=== PATIENT | male | born 1960 | race Caucasian/White ===

== ENCOUNTER 2016-05-07 17:30 | Inpatient (IN) | payer MEDICARE ==
--- NOTE | 2016-05-07 17:42 | ED ---
General Adult HPI - General Stated complaint: chest pain Time Seen by Provider: 05/07/16 17:30 Source: RN notes reviewed - History of Present Illness Initial comments: A 56-year-old male who has a past medical history significant for congestive heart failure C. difficile there he's in the halfway recovering. Patient uses BiPAP at night or when he sleeping. EMS was called the scene because the patient was unresponsive the head and sitting up on BiPAP according to EMS he was not responding to any painful stimuli they laid him down gave him 3 rescue breaths and he became awake and alert. Patient is a little bit confused he thinks it's May when in fact it is April but aside from that he answers all questions accurately. Patient states currently he is having no pain or no difficulty breathing. Patient denies any fever or chills patient denies any abdominal pain patient denies any nausea vomiting diarrhea. Patient states he has no problems at all right now and he is kind of wondering why he is here. Patient states she thinks she was just sleeping when they were trying to arouse him. - Related Data Home Medications Medication Instructions Recorded Confirmed Acetaminophen Tab [Tylenol Tab] 650 mg PO Q6H PRN 05/07/16 05/07/16 Allopurinol [Zyloprim] 300 mg PO DAILY@0900 05/07/16 05/07/16 Amiodarone HCl 400 mg PO BID@0900,209905/07/16 05/07/16 Benzonatate [Tessalon Perles] 100 mg PO Q8H PRN 05/07/16 05/07/16 Budesonide [Pulmicort] 0.5 mg INHALATION RT-BID@09,209905/07/16 05/07/16 Carvedilol [Coreg] 6.25 mg PO BID@0900,209905/07/16 05/07/16 Cyclobenzaprine [Flexeril] 5 mg PO Q8H PRN 05/07/16 05/07/16 Docusate [Colace] 100 mg PO BID PRN 05/07/16 05/07/16 Famotidine 20 mg PO DAILY@0600 05/07/16 05/07/16 Fluticasone Nasal [place] [Flonase 2 spray EA NOSTRIL DAILY@0900 05/07/16 05/07/16 Nasal [place]] Furosemide [Lasix] 40 mg PO BID@0600,1400 05/07/16 05/07/16 Gabapentin [Neurontin] 100 mg PO TID@0600,1400,2200 05/07/16 05/07/16 HYDROcodone/APAP 10-325MG [[place] 1 tab PO Q6H PRN 05/07/16 05/07/16 10-325] Insulin Glargine,Hum.rec.anlog 30 unit SQ HS@209905/07/16 05/07/16 [Basaglar Kwikpen U-100] Insulin Lispro [humaLOG Kwikpen] See Protocol SQ AC-TID 05/07/16 05/07/16 Ipratropium-Albuterol Nebulize 3 ml INHALATION RT-Q6H PRN 05/07/16 05/07/16 [Duoneb 0.5 mg-3 mg/3 ml Soln] Lactulose 20 gm PO Q8H PRN 05/07/16 05/07/16 Tamsulosin HCl [Flomax] 0.4 mg PO HS@209905/07/16 05/07/16 Warfarin [Coumadin] 5 mg PO DAILY@1700 05/07/16 05/07/16 guaiFENesin SYRUP 100MG/5ML 100 mg PO Q6H PRN 05/07/16 05/07/16 [Robitussin] Allergies Allergy/AdvReac Type Severity Reaction Status Date / Time No Known Allergies Allergy Unverified 05/07/16 17:45 Review of Systems ROS Statement: Those systems with pertinent positive or pertinent negative responses have been documented in the HPI. ROS Other: All systems not noted in ROS Statement are negative. General Exam - General Exam Comments Initial Comments: GENERAL: Patient is well-developed and well-nourished. Patient is nontoxic and well- hydrated and is in no acute distress. ENT: Neck is soft and supple. No significant lymphadenopathy is noted. Oropharynx is clear. Moist mucous membranes. Neck has full range of motion without eliciting any pain. EYES: The sclera were anicteric and conjunctiva were pink and moist. Extraocular movements were intact and pupils were equal round and reactive to light. Eyelids were unremarkable. PULMONARY: Unlabored respirations. Good breath sounds bilaterally. No audible rales rhonchi or wheezing was noted. CARDIOVASCULAR: There is a regular rate and rhythm without any murmurs gallops or rubs. ABDOMEN: Soft and nontender with normal bowel sounds. Patient is morbidly obese SKIN: Skin is clear with no lesions or rashes and otherwise unremarkable. NEUROLOGIC: Patient is alert and oriented 2. Cranial nerves II through XII are grossly intact. Motor and sensory are also intact. Normal speech, volume and content. Symmetrical smile. MUSCULOSKELETAL: Normal extremities with adequate strength and full range of motion. No lower extremity swelling or edema. No calf tenderness. LYMPHATICS: No significant lymphadenopathy is noted PSYCHIATRIC: Normal psychiatric evaluation. Normal interpersonal interactions appears functionally intact in deals appropriately with others. No signs of depression. No signs of anxiety. Course Vital Signs 05/07/16 17:32 Temperature 98.4 F Pulse Rate 80 Respiratory 20 Rate O2 Sat by Pulse 100 Oximetry Medical Decision Making - Medical Decision Making EKG shows atrial fibrillation at 80 bpm QRS is 180 QT interval 472 QTC is 544. Patient's EKG shows interventricular conduction delay and there is some inverted T waves in V1 through V6. No ST segment elevations noted. Chest x-ray shows pulmonary edema because of this to give the patient Lasix. Patient has acute renal failure/consult nephrology. Patient has urinary tract infections I gave the patient 2 g of Rocephin. Patient has an elevated INRs I gave the patient 5 of vitamin K. Patient has a hemoglobin of 7.6 so repeated CBC is ordered a type and screen. I spoke with Dr. kovacs and she agreed to admit the patient I wrote admitting orders - Lab Data Result diagrams: 05/07/16 17:53 05/07/16 17:53 Lab Results 05/07/16 05/07/16 05/07/16 Range/Units 17:48 17:53 17:53 WBC 7.8 (3.8-10.6) k/uL RBC 2.91 L (4.30-5.90) m/uL Hgb 7.6 L (13.0-17.5) gm/dL Hct 25.1 L (39.0-53.0) % MCV 86.3 (80.0-100.0) fL MCH 25.9 (25.0-35.0) pg MCHC 30.1 L (31.0-37.0) g/dL RDW 24.0 H (11.5-15.5) % Plt Count 194 (150-450) k/uL Neutrophils % 83 % Lymphocytes % 7 % Monocytes % 6 % Eosinophils % 0 % Basophils % 0 % Neutrophils # 6.5 (1.3-7.7) k/uL Lymphocytes # 0.5 L (1.0-4.8) k/uL Monocytes # 0.5 (0-1.0) k/uL Eosinophils # 0.0 (0-0.7) k/uL Basophils # 0.0 (0-0.2) k/uL Hypochromasia Marked Poikilocytosis Slight Anisocytosis Marked Microcytosis Slight PT (9.0-12.0) sec INR (<1.1) APTT (22.0-30.0) sec Sample Site l rad ABG pH 7.35 (7.35-7.45) ABG pCO2 51 H (35-45) mmHg ABG pO2 301 H (83-108) mmHg ABG HCO3 27 H (21-25) mmol/L ABG Total CO2 29 H (19-24) mmol/L ABG O2 Saturation 100.0 H (94-97) % ABG Base Excess 2.3 mmol/L FiO2 100 % Sodium (137-145) mmol/L Potassium (3.5-5.1) mmol/L Chloride (98-107) mmol/L Carbon Dioxide (22-30) mmol/L Anion Gap mmol/L BUN (9-20) mg/dL Creatinine (0.66-1.25) mg/dL Est GFR (MDRD) Af Amer (>60 ml/min/1.73 sqM) Est GFR (MDRD) Non-Af (>60 ml/min/1.73 sqM) Glucose (74-99) mg/dL Calcium (8.4-10.2) mg/dL Magnesium (1.6-2.3) mg/dL Total Bilirubin (0.2-1.3) mg/dL AST (17-59) U/L ALT (21-72) U/L Alkaline Phosphatase (38-126) U/L Total Creatine Kinase 55 (55-170) U/L CK-MB (CK-2) 1.3 (0.0-2.4) ng/mL CK-MB (CK-2) Rel Index 2.4 Troponin I 0.112 H* (0.000-0.034) ng/mL NT-Pro-B Natriuret Pep pg/mL Total Protein (6.3-8.2) g/dL Albumin (3.5-5.0) g/dL Urine Color Urine Appearance (Clear) Urine pH (5.0-8.0) Ur Specific [place] (1.001-1.035) Urine Protein (Negative) Urine Glucose (UA) (Negative) Urine Ketones (Negative) Urine Blood (Negative) Urine Nitrite (Negative) Urine Bilirubin (Negative) Urine Urobilinogen (<2.0) mg/dL Ur Leukocyte Esterase (Negative) Urine RBC (0-5) /hpf Urine WBC (0-5) /hpf Urine WBC Clumps (None) /hpf Urine Bacteria (None) /hpf Urine Mucus (None) /hpf Urine Yeast (Budding) (None) /hpf 05/07/16 05/07/16 05/07/16 Range/Units 17:53 17:53 17:53 WBC (3.8-10.6) k/uL RBC (4.30-5.90) m/uL Hgb (13.0-17.5) gm/dL Hct (39.0-53.0) % MCV (80.0-100.0) fL MCH (25.0-35.0) pg MCHC (31.0-37.0) g/dL RDW (11.5-15.5) % Plt Count (150-450) k/uL Neutrophils % % Lymphocytes % % Monocytes % % Eosinophils % % Basophils % % Neutrophils # (1.3-7.7) k/uL Lymphocytes # (1.0-4.8) k/uL Monocytes # (0-1.0) k/uL Eosinophils # (0-0.7) k/uL Basophils # (0-0.2) k/uL Hypochromasia Poikilocytosis Anisocytosis Microcytosis PT 42.5 H (9.0-12.0) sec INR 4.3 (<1.1) APTT 30.0 (22.0-30.0) sec Sample Site ABG pH (7.35-7.45) ABG pCO2 (35-45) mmHg ABG pO2 (83-108) mmHg ABG HCO3 (21-25) mmol/L ABG Total CO2 (19-24) mmol/L ABG O2 Saturation (94-97) % ABG Base Excess mmol/L FiO2 % Sodium 133 L (137-145) mmol/L Potassium 4.2 (3.5-5.1) mmol/L Chloride 96 L (98-107) mmol/L Carbon Dioxide 31 H (22-30) mmol/L Anion Gap 6 mmol/L BUN 127 H* (9-20) mg/dL Creatinine 3.20 H (0.66-1.25) mg/dL Est GFR (MDRD) Af Amer 24 (>60 ml/min/1.73 sqM) Est GFR (MDRD) Non-Af 20 (>60 ml/min/1.73 sqM) Glucose 135 H (74-99) mg/dL Calcium 7.8 L (8.4-10.2) mg/dL Magnesium 2.1 (1.6-2.3) mg/dL Total Bilirubin 0.5 (0.2-1.3) mg/dL AST 20 (17-59) U/L ALT 30 (21-72) U/L Alkaline Phosphatase 238 H (38-126) U/L Total Creatine Kinase (55-170) U/L CK-MB (CK-2) (0.0-2.4) ng/mL CK-MB (CK-2) Rel Index Troponin I (0.000-0.034) ng/mL NT-Pro-B Natriuret Pep 86198 pg/mL Total Protein 4.1 L (6.3-8.2) g/dL Albumin 2.0 L (3.5-5.0) g/dL Urine Color Urine Appearance (Clear) Urine pH (5.0-8.0) Ur Specific [place] (1.001-1.035) Urine Protein (Negative) Urine Glucose (UA) (Negative) Urine Ketones (Negative) Urine Blood (Negative) Urine Nitrite (Negative) Urine Bilirubin (Negative) Urine Urobilinogen (<2.0) mg/dL Ur Leukocyte Esterase (Negative) Urine RBC (0-5) /hpf Urine WBC (0-5) /hpf Urine WBC Clumps (None) /hpf Urine Bacteria (None) /hpf Urine Mucus (None) /hpf Urine Yeast (Budding) (None) /hpf 05/07/16 Range/Units 18:50 WBC (3.8-10.6) k/uL RBC (4.30-5.90) m/uL Hgb (13.0-17.5) gm/dL Hct (39.0-53.0) % MCV (80.0-100.0) fL MCH (25.0-35.0) pg MCHC (31.0-37.0) g/dL RDW (11.5-15.5) % Plt Count (150-450) k/uL Neutrophils % % Lymphocytes % % Monocytes % % Eosinophils % % Basophils % % Neutrophils # (1.3-7.7) k/uL Lymphocytes # (1.0-4.8) k/uL Monocytes # (0-1.0) k/uL Eosinophils # (0-0.7) k/uL Basophils # (0-0.2) k/uL Hypochromasia Poikilocytosis Anisocytosis Microcytosis PT (9.0-12.0) sec INR (<1.1) APTT (22.0-30.0) sec Sample Site ABG pH (7.35-7.45) ABG pCO2 (35-45) mmHg ABG pO2 (83-108) mmHg ABG HCO3 (21-25) mmol/L ABG Total CO2 (19-24) mmol/L ABG O2 Saturation (94-97) % ABG Base Excess mmol/L FiO2 % Sodium (137-145) mmol/L Potassium (3.5-5.1) mmol/L Chloride (98-107) mmol/L Carbon Dioxide (22-30) mmol/L Anion Gap mmol/L BUN (9-20) mg/dL Creatinine (0.66-1.25) mg/dL Est GFR (MDRD) Af Amer (>60 ml/min/1.73 sqM) Est GFR (MDRD) Non-Af (>60 ml/min/1.73 sqM) Glucose (74-99) mg/dL Calcium (8.4-10.2) mg/dL Magnesium (1.6-2.3) mg/dL Total Bilirubin (0.2-1.3) mg/dL AST (17-59) U/L ALT (21-72) U/L Alkaline Phosphatase (38-126) U/L Total Creatine Kinase (55-170) U/L CK-MB (CK-2) (0.0-2.4) ng/mL CK-MB (CK-2) Rel Index Troponin I (0.000-0.034) ng/mL NT-Pro-B Natriuret Pep pg/mL Total Protein (6.3-8.2) g/dL Albumin (3.5-5.0) g/dL Urine Color Light Red Urine Appearance Turbid (Clear) Urine pH 5.5 (5.0-8.0) Ur Specific [place] 1.012 (1.001-1.035) Urine Protein 1+ H (Negative) Urine Glucose (UA) Negative (Negative) Urine Ketones Negative (Negative) Urine Blood Moderate H (Negative) Urine Nitrite Negative (Negative) Urine Bilirubin Negative (Negative) Urine Urobilinogen <2.0 (<2.0) mg/dL Ur Leukocyte Esterase Large H (Negative) Urine RBC 136 H (0-5) /hpf Urine WBC >182 H (0-5) /hpf Urine WBC Clumps Many H (None) /hpf Urine Bacteria Many H (None) /hpf Urine Mucus Rare H (None) /hpf Urine Yeast (Budding) Many H (None) /hpf Critical Care Time Critical Care Time: Yes Total Critical Care Time: 35 Disposition Clinical Impression: Acute pulmonary edema, Acute renal failure, Urinary tract infection, Coagulopathy, Anemia Disposition: ADMITTED IP TO THIS [facility] Time of Disposition: 19:20
[2016-05-07 18:09] LABS: Anisocytosis Marked; Basophils % (A) 0 %; CH 24.9; CHCM 28.7; Eosinophils % (A) 0 %; HCT 25.1 % (39.0-53.0); HDW 3.78; HGB 7.6 gm/dL (13.0-17.5); Hypochromasia Marked; Luc # (Auto) 0.22; Luc % (Auto) 3; Lymphocytes # (A) 0.5 k/uL (1.0-4.8); Lymphocytes % (A) 7 %; MCH 25.9 pg (25.0-35.0); MCHC 30.1 g/dL (31.0-37.0); MCV 86.3 fL (80.0-100.0); Mean Platelet Volume 8.5; Microcytosis Slight; Monocytes # (A) 0.5 k/uL (0-1.0); Monocytes % (A) 6 %; Neutrophils # (A) 6.5 k/uL (1.3-7.7); Neutrophils % (A) 83 %; Poikilocytosis Slight; RBC 2.91 m/uL (4.30-5.90); WBC 7.8 k/uL (3.8-10.6); WBC (Perox) 8.29
[2016-05-07 18:18] LABS: INR 4.3 (<1.1); Prothrombin Time 42.5 sec (9.0-12.0)
[2016-05-07 18:22] LABS: ABG Base Excess 2.3 mmol/L; ABG HCO3 27 mmol/L (21-25); ABG PCO2 51 mmHg (35-45); ABG PH 7.35 (7.35-7.45); ABG PO2 301 mmHg (83-108); ABG TCO2 29 mmol/L (19-24)
[2016-05-07 18:41] LABS: Calcium 7.8 mg/dL (8.4-10.2); Magnesium 2.1 mg/dL (1.6-2.3); Potassium 4.2 mmol/L (3.5-5.1); Total Bilirubin 0.5 mg/dL (0.2-1.3); Total Protein 4.1 g/dL (6.3-8.2)
--- NOTE | 2016-05-07 18:48 | XR ---
EXAMINATION TYPE: XR chest 2V DATE OF EXAM: 05/07/2016 6:37 PM COMPARISON: NONE HISTORY: Unresponsive. Chest pain TECHNIQUE: Frontal and lateral views of the chest are obtained. FINDINGS: Exam is limited by the patient's obesity. As best as one can tell there is pulmonary edema . There is left pleural effusion. There are chest leads. There is possible right pleural effusion. IMPRESSION: Limited exam. There is probably pulmonary edema due to congestive heart failure. Left pl eural effusion. Left lower lobe pneumonia cannot be excluded.
[2016-05-07 18:50] LABS: Creatine Kinase MB 1.3 ng/mL (0.0-2.4)
[2016-05-07 18:53] LABS: Troponin I 0.112 ng/mL (0.000-0.034)
[2016-05-07 19:01] LABS: Appearance,Urine Turbid (Clear); Bacteria,Urine Many /hpf; Bilirubin,Urine Negative (Negative); Glucose,Urine (UA) Negative (Negative); Ketones,Urine Negative (Negative); Leukocyte Esterase,Urine Large (Negative); Mucus,Urine Rare /hpf; Nitrite,Urine Negative (Negative); PH, Urine 5.5 (5.0-8.0); Particle Count 17370; Protein,Urine 1+ (Negative); RBC,Urine 136 /hpf (0-5); Specific Gravity,Urine 1.012 (1.001-1.035); UA Billing (MACRO vs. MICRO) MICRO; Urobilinogen,Urine <2.0 mg/dL (<2.0); WBC,Urine >182 /hpf (0-5)
[2016-05-07] MEDS ORDERED: cefTRIAXone 2,000 MG in SODIUM CHLORIDE 0.9% 100 ML IVPB STA (19:07)
[2016-05-07] MEDS ORDERED: FUROSEMIDE 10 MG/ML 2 ML VIAL IV STA (19:08)
[2016-05-07] MEDS ORDERED: PHYTONADIONE 5 MG in SODIUM CHLORIDE 0.9% 50 ML IVPB STA (19:09)
[2016-05-07] MEDS ORDERED: SODIUM CHLORIDE 0.9% 500 ML IV ONE (20:05)
[2016-05-07] MEDS: AMIODARONE 200 MG TAB PO SCH (23:25)
[2016-05-07] MEDS: CARVEDILOL 6.25 MG TAB PO SCH (23:25)
[2016-05-08] MEDS ORDERED: FUROSEMIDE 10 MG/ML 2 ML VIAL IV SCH
[2016-05-08] MEDS ORDERED: SODIUM CHLORIDE 0.9% 1,000 ML IV ONE (00:25)
[2016-05-08 00:41] LABS: Glucose,Whole Blood 130 mg/dL (75-99)
[2016-05-08 00:47] LABS: Creatine Kinase MB 1.6 ng/mL (0.0-2.4)
[2016-05-08 00:52] LABS: Troponin I 0.096 ng/mL (0.000-0.034)
--- NOTE | 2016-05-08 01:37 | XR ---
EXAM: XR Chest, 1 View. CLINICAL HISTORY: Reason: increased SOB TECHNIQUE: Frontal view of the chest. COMPARISON: No relevant prior studies available. FINDINGS: Lungs: Diffuse pulmonary edema pattern is present. There appears to be a moderate size left pleural effusion, although underlying left base infiltrate is not excluded. There may be a smaller right-sided pleural effusion that itself may be partially loculated. Pleural space: See above. No pneumothorax. Heart: Evaluation of the cardiomediastinal silhouette is limited allowing for which it generally appears enlarged. Mediastinum: See above. Bones/joints: No acute displaced fracture is seen. Tubes, lines and devices: There is some inherent limitation, due to the portable nature of the exam, and patient body habitus. Several EKG leads overlie the chest. IMPRESSION: 1. Diffuse pulmonary edema like pattern. 2. Either asymmetric pleural effusions, greater on the left, or there may be underlying left base infiltrate. 3. Limited assessment of the cardiomediastinal silhouette, as above.
[2016-05-08] MEDS: PIPERACILLIN-TAZOBACTAM 3.375 GM in DEXTROSE/WATER 1 50ML.BAG IVPB SCH ×3 (02:16→16:55)
[2016-05-08] MEDS ORDERED: NOREPINEPHRINE 4 MG in SODIUM CHLORIDE 0.9% 250 ML IV SCH (04:00)
[2016-05-08 06:01] LABS: Anisocytosis Moderate; Basophils # (A) 0.1 k/uL (0-0.2); Basophils % (A) 1 %; CH 24.7; CHCM 27.5; Eosinophils % (A) 0 %; HCT 26.5 % (39.0-53.0); HDW 3.75; HGB 7.5 gm/dL (13.0-17.5); Hypochromasia Marked; Luc # (Auto) 0.25; Luc % (Auto) 2; Lymphocytes # (A) 0.3 k/uL (1.0-4.8); Lymphocytes % (A) 2 %; MCH 25.4 pg (25.0-35.0); MCHC 28.4 g/dL (31.0-37.0); MCV 89.5 fL (80.0-100.0); Macrocytosis Slight; Mean Platelet Volume 8.1; Monocytes # (A) 0.4 k/uL (0-1.0); Monocytes % (A) 4 %; Neutrophils # (A) 10.2 k/uL (1.3-7.7); Neutrophils % (A) 91 %; Poikilocytosis Slight; RBC 2.96 m/uL (4.30-5.90); RDW 23.6 % (11.5-15.5); WBC 11.1 k/uL (3.8-10.6); WBC (Perox) 11.07
[2016-05-08 06:25] LABS: Calcium 7.8 mg/dL (8.4-10.2); Magnesium 2.1 mg/dL (1.6-2.3); Phosphorous 6.2 mg/dL (2.5-4.5); Potassium 4.2 mmol/L (3.5-5.1); Total Bilirubin 0.7 mg/dL (0.2-1.3); Total Protein 4.3 g/dL (6.3-8.2)
[2016-05-08 06:40] LABS: Creatine Kinase MB 2.3 ng/mL (0.0-2.4)
[2016-05-08 06:50] LABS: Troponin I 0.114 ng/mL (0.000-0.034)
[2016-05-08 08:45] LABS: Glucose,Whole Blood 164 mg/dL (75-99)
[2016-05-08] MEDS ORDERED: FUROSEMIDE 10 MG/ML 4 ML VIAL IV SCH (09:17)
[2016-05-08] MEDS: CARVEDILOL 6.25 MG TAB PO SCH (09:20)
[2016-05-08] MEDS: INSULIN LISPRO (humaLOG) 300 UNIT/3 ML VIAL SQ SCH ×4 (09:26→22:06)
[2016-05-08 09:41] LABS: INR 1.8 (<1.1); Prothrombin Time 17.2 sec (9.0-12.0)
--- NOTE | 2016-05-08 09:42 | P.NPCON ---
History of Present Illness - Reason for Consult acute renal failure - History of Present Illness Reason for consultation: Acute kidney injury on chronic kidney disease History of present illness: Patient is a 56-year-old male seen in renal consultation for acute kidney injury on chronic kidney disease. Patient has chronic kidney disease stage IV with baseline creatinine near 2 secondary to right solitary kidney. Recently his creatinine has been in the range of 2-1/2-3. He's had multiple episodes of acute kidney injury related to bacteremia as well as cardiorenal syndrome. Patient presents to the hospital from [facility] where he was found to be unresponsive. He did receive 3 rescue breaths and then became alert. He is currently in the intensive care unit. He does respond to verbal commands. He denies any active chest pain or shortness of breath. He has a [place] catheter in place and is nonoliguric. Urine output in the range of 40-50 mL per hour. He was hypotensive last night and did receive 2 L of IV fluids and is currently on 4 mics of levofed. His chest x-ray suggestive of pulmonary edema. Appetite is fair. No vomiting. He denies diarrhea but was diagnosed with C. diff about 2 weeks ago. Vital signs are stable. General: The patient appeared well nourished and normally developed. HEENT: Head exam is unremarkable. Neck is without jugular venous distension. LUNGS: Lungs are clear to auscultation and percussion. Breath sounds decreased. HEART: Rate and Rhythm are regular. First and second heart sounds normal. No murmurs, rubs or gallops. ABDOMEN: Abdominal exam reveals normal bowel sounds. Non-tender and non- distended. No evidence of peritonitis. EXTREMITITES: 1+ edema. Past Medical History Past Medical History: Atrial Fibrillation, Chest Pain / Angina, Heart Failure, Diabetes Mellitus, GERD/Reflux, Hypertension, Osteoarthritis (OA), Pneumonia, Renal Disease Additional Past Medical History / Comment(s): MUSCLE WEAKNESS, GOUT, pt has 1 kidney History of Any Multi-Drug Resistant Organisms: C-DIFF Date of last positivie culture/infection: 2016 MDRO Source:: stool Past Surgical History: No Surgical Hx Reported Past Psychological History: Depression Smoking Status: Former smoker Past Alcohol Use History: None Reported Past Drug Use History: None Reported - Past Family History Father Additional Family Medical History / Comment(s): Aneurysm from hernia surgery. Mother Family Medical History: Congestive Heart Failure (CHF), CVA/TIA, Diabetes Mellitus Medications and Allergies Home Medications Medication Instructions Recorded Confirmed Type Acetaminophen Tab [Tylenol Tab] 650 mg PO Q6H PRN 05/07/16 05/07/16 History Allopurinol [Zyloprim] 300 mg PO DAILY@0900 05/07/16 05/07/16 History Amiodarone HCl 400 mg PO BID@0900,209905/07/16 05/07/16 History Benzonatate [Tessalon Perles] 100 mg PO Q8H PRN 05/07/16 05/07/16 History Budesonide [Pulmicort] 0.5 mg INHALATION RT-BID@0900,209905/07/16 05/07/16 History Carvedilol [Coreg] 6.25 mg PO BID@0900,209905/07/16 05/07/16 History Cyclobenzaprine [Flexeril] 5 mg PO Q8H PRN 05/07/16 05/07/16 History Docusate [Colace] 100 mg PO BID PRN 05/07/16 05/07/16 History Famotidine 20 mg PO DAILY@0600 05/07/16 05/07/16 History Fluticasone Nasal [place] [Flonase 2 spray EA NOSTRIL DAILY@0900 05/07/16 History Nasal [place]] Furosemide [Lasix] 40 mg PO BID@0600,1400 05/07/16 05/07/16 History Gabapentin [Neurontin] 100 mg PO TID@0600,1400,2200 05/07/16 05/07/16 History HYDROcodone/APAP 10-325MG [[place] 1 tab PO Q6H PRN 05/07/16 05/07/16 History 10-325] Insulin Glargine,Hum.rec.anlog 30 unit SQ HS@209905/07/16 05/07/16 History [Basaglar Kwikpen U-100] Insulin Lispro [humaLOG Kwikpen] See Protocol SQ AC-TID 05/07/16 05/07/16 History Ipratropium-Albuterol Nebulize 3 ml INHALATION RT-Q6H PRN 05/07/16 05/07/16 History [Duoneb 0.5 mg-3 mg/3 ml Soln] Lactulose 20 gm PO Q8H PRN 05/07/16 05/07/16 History Tamsulosin HCl [Flomax] 0.4 mg PO HS@2100 05/07/16 05/07/16 History Warfarin [Coumadin] 5 mg PO DAILY@1700 05/07/16 05/07/16 History guaiFENesin SYRUP 100MG/5ML 100 mg PO Q6H PRN 05/07/16 05/07/16 History [Robitussin] Allergies Allergy/AdvReac Type Severity Reaction Status Date / Time No Known Allergies Allergy Unverified 05/07/16 17:45 Physical Exam Vitals: Vital Signs Temp Pulse Pulse Resp BP BP BP 05/08/16 08:00 74 13 93/45 05/08/16 07:45 63 13 101/48 05/08/16 07:30 76 13 93/46 05/08/16 07:15 60 13 98/52 05/08/16 07:00 69 14 106/51 05/08/16 06:45 67 14 100/60 05/08/16 06:30 69 14 96/56 05/08/16 06:15 73 14 105/57 05/08/16 06:00 64 12 107/57 05/08/16 05:45 67 13 109/58 05/08/16 05:30 66 15 107/53 05/08/16 05:15 73 13 105/55 05/08/16 05:00 61 14 103/47 05/08/16 04:45 83 16 91/48 05/08/16 04:30 97.0 F L 64 16 85/51 05/08/16 04:15 62 16 77/46 05/08/16 04:00 59 L 15 86/38 05/08/16 03:45 67 18 73/39 05/08/16 03:30 87 17 77/40 05/08/16 03:15 84 22 96/42 05/08/16 03:00 87 19 90/38 05/08/16 02:45 82 16 85/41 05/08/16 02:30 85 18 97/44 05/08/16 02:15 76 13 98/48 05/08/16 02:00 92 17 98/45 05/08/16 01:45 96.9 F L 87 18 86/42 05/07/16 23:54 97.1 F L 77 15 79/38 05/07/16 23:10 72/40 05/07/16 23:04 68 20 05/07/16 21:45 97.6 F 74 20 79/48 05/07/16 21:11 97 F L 77 20 102/52 05/07/16 20:44 104/51 05/07/16 20:34 94/58 05/07/16 19:50 91 22 92/53 Pulse Ox 05/08/16 08:00 100 05/08/16 07:45 98 05/08/16 07:30 99 05/08/16 07:15 100 05/08/16 07:00 100 05/08/16 06:45 98 05/08/16 06:30 99 05/08/16 06:15 99 05/08/16 06:00 100 05/08/16 05:45 100 05/08/16 05:30 100 05/08/16 05:15 98 05/08/16 05:00 92 L 05/08/16 04:45 98 05/08/16 04:30 100 05/08/16 04:15 100 05/08/16 04:00 100 05/08/16 03:45 99 05/08/16 03:30 99 05/08/16 03:15 97 05/08/16 03:00 95 05/08/16 02:45 96 05/08/16 02:30 95 05/08/16 02:15 95 05/08/16 02:00 90 L 05/08/16 01:45 92 L 05/07/16 23:54 100 05/07/16 23:10 05/07/16 23:04 05/07/16 21:45 96 05/07/16 21:11 98 05/07/16 20:44 05/07/16 20:34 05/07/16 19:50 100 Intake and Output 05/07/16 05/08/16 05/08/16 22:59 06:59 14:59 Intake Total 2090.0 40 Output Total 730 95 Balance 1360.0 -55 Intake: IV 2090.0 40 NS 40 40 Piperacillin-Tazobactam 3 50.0 .375 gm In Dextrose/Water 1 50ml.bag @ 12.5 mls/hr IVPB Q8HR [facility] Rx#: [id number] Sodium Chloride 0.9% 1, 1999 000 ml @ 999 mls/hr IV . Q1H1M ONE Rx#:[id number] Output: Urine 730 95 Other: Voiding Method Indwelling Catheter Weight 176 kg Results - Lab Results Most recent lab results ABG pH 7.35 (7.35-7.45) 05/07/16 17:48 ABG pCO2 51 mmHg (35-45) H 05/07/16 17:48 ABG pO2 301 mmHg (83-108) H 05/07/16 17:48 ABG HCO3 27 mmol/L (21-25) H 05/07/16 17:48 ABG O2 Saturation 100.0 % (94-97) H 05/07/16 17:48 Calcium 7.8 mg/dL (8.4-10.2) L 05/08/16 05:26 Phosphorus 6.2 mg/dL (2.5-4.5) H 05/08/16 05:26 Magnesium 2.1 mg/dL (1.6-2.3) 05/08/16 05:26 05/08/16 05:26 05/08/16 05:26 Assessment and Plan Plan: Assessment: #1. Nonoliguric acute kidney injury secondary to ischemic ATN secondary to hypotension. Creatinine 3.3 today. #2. Chronic kidney disease stage IV secondary to solitary right kidney and multiple acute kidney injuries. Baseline creatinine 2 but recently has been in the range of 2-1/2-3. #3. Systolic CHF with ejection fraction of 30-35%. #4. Anemia. Rule out iron deficiency. #5. Hypotension requiring vasopressor support. #6. Elevated BUN related to acute kidney injury. He is currently not on any steroids. Will check stool for occult blood as well. Plan: Increase Lasix to 40 mg IV twice daily. Wean vasopressors as blood pressure tolerates. Check ferritin level and iron studies. Check stool for occult blood. Encourage oral intake. Maintain [place] catheter with strict I's and O's. Repeat electrolytes in the morning. Follow-up cultures. Thank you for the consultation. I will continue to follow the patient with you during his hospital stay.
[2016-05-08 10:48] LABS: % Iron Saturation 52.9 % (20-50)
[2016-05-08] MEDS: AMIODARONE 200 MG TAB PO SCH ×2 (11:30→22:06)
[2016-05-08 12:23] LABS: Glucose,Whole Blood 159 mg/dL (75-99)
--- NOTE | 2016-05-08 17:07 | P.HPIM ---
History of Present Illness H&P Date: 05/08/16 Chief Complaint: AMS This is a 56 year old male who presented to the ED from an ECF after being found unresponsive. Patient uses BiPAP at night or when he sleeping. He was apparently sitting up on BiPAP according to EMS he was not responding to any painful stimuli they laid him down gave him 3 rescue breaths and he became awake and alert. The patient is seen and examined in the ICU. He was hypotensive over night and started on levophed. He is currently on Bipap and is difficult to arouse but does open his eyes. He denies abdominal pain, chest pain, shortness of breath. He denies fevers and chills. The patient's CXR shows R > L infiltrate concerning for pulmonary edema versus pneumonia. He was recently admitted to [facility] with Cdiff colitis, CHF, Afib with RVR, CKD 4, pancytopenia. The patient has a complex medical history. Per nursing, the patient did receive one dose of Lasix this morning and his urine output did not improve, he dropped to 20 cc/hr. He did receive fluid boluses over night for hypotension. He is also requiring more Levophed at this time. Past Medical History Past Medical History: Atrial Fibrillation, Chest Pain / Angina, Heart Failure, Diabetes Mellitus, GERD/Reflux, Hypertension, Musculoskeletal Disorder, Osteoarthritis (OA), Pneumonia, Renal Disease, Rheumatoid Arthritis (RA), Sleep Apnea/CPAP/BIPAP Additional Past Medical History / Comment(s): MUSCLE WEAKNESS, GOUT, pt has 1 kidney History of Any Multi-Drug Resistant Organisms: C-DIFF Date of last positivie culture/infection: 2016 MDRO Source:: stool Past Surgical History: No Surgical Hx Reported Past Psychological History: Depression Smoking Status: Former smoker Past Alcohol Use History: None Reported Past Drug Use History: None Reported - Past Family History Father Additional Family Medical History / Comment(s): Aneurysm from hernia surgery. Mother Family Medical History: Congestive Heart Failure (CHF), CVA/TIA, Diabetes Mellitus Medications and Allergies Home Medications Medication Instructions Recorded Confirmed Type Acetaminophen Tab [Tylenol Tab] 650 mg PO Q6H PRN 05/07/16 05/07/16 History Allopurinol [Zyloprim] 300 mg PO DAILY@0900 05/07/16 05/07/16 History Amiodarone HCl 400 mg PO BID@0900,2100 26/17 03/26/17 History Benzonatate [Tessalon Perles] 100 mg PO Q8H PRN 05/07/16 05/07/16 History Budesonide [Pulmicort] 0.5 mg INHALATION RT-BID@0900,209905/07/16 05/07/16 History Carvedilol [Coreg] 6.25 mg PO BID@0900,209905/07/16 05/07/16 History Cyclobenzaprine [Flexeril] 5 mg PO Q8H PRN 05/07/16 05/07/16 History Docusate [Colace] 100 mg PO BID PRN 05/07/16 05/07/16 History Famotidine 20 mg PO DAILY@0600 05/07/16 05/07/16 History Fluticasone Nasal [place] [Flonase 2 spray EA NOSTRIL DAILY@0900 05/07/16 History Nasal [place]] Furosemide [Lasix] 40 mg PO BID@0600,1400 05/07/16 05/07/16 History Gabapentin [Neurontin] 100 mg PO TID@0600,1400,2200 05/07/16 05/07/16 History HYDROcodone/APAP 10-325MG [[place] 1 tab PO Q6H PRN 05/07/16 05/07/16 History 10-325] Insulin Glargine,Hum.rec.anlog 30 unit SQ HS@209905/07/16 05/07/16 History [Basaglar Kwikpen U-100] Insulin Lispro [humaLOG Kwikpen] See Protocol SQ AC-TID 05/07/16 05/07/16 History Ipratropium-Albuterol Nebulize 3 ml INHALATION RT-Q6H PRN 05/07/16 05/07/16 History [Duoneb 0.5 mg-3 mg/3 ml Soln] Lactulose 20 gm PO Q8H PRN 05/07/16 05/07/16 History Tamsulosin HCl [Flomax] 0.4 mg PO HS@209905/07/16 05/07/16 History Warfarin [Coumadin] 5 mg PO DAILY@1700 05/07/16 05/07/16 History guaiFENesin SYRUP 100MG/5ML 100 mg PO Q6H PRN 05/07/16 05/07/16 History [Robitussin] Allergies Allergy/AdvReac Type Severity Reaction Status Date / Time No Known Allergies Allergy Unverified 05/07/16 17:45 Physical Exam Osteopathic Statement: *. No significant issues noted on an osteopathic structural exam other than those noted in the History and Physical/Consult. Vitals: Vital Signs Temp Pulse Pulse Resp BP BP BP 05/08/16 16:02 05/08/16 15:00 98.0 F 110 H 14 108/57 05/08/16 14:00 83 13 96/47 05/08/16 13:00 84 13 93/60 05/08/16 12:00 97.3 F L 83 14 96/51 05/08/16 11:30 73 17 93/40 05/08/16 11:25 89 15 93/40 05/08/16 11:20 65 15 93/40 05/08/16 11:00 82 14 84/47 05/08/16 10:00 97.7 F 77 16 101/54 05/08/16 09:00 95.0 F L 60 33 H 104/48 05/08/16 08:00 74 15 93/45 05/08/16 07:45 63 13 101/48 05/08/16 07:30 76 13 93/46 05/08/16 07:15 60 13 98/52 05/08/16 07:00 69 14 106/51 05/08/16 06:45 67 14 100/60 05/08/16 06:30 69 14 96/56 05/08/16 06:15 73 14 105/57 05/08/16 06:00 64 12 107/57 05/08/16 05:45 67 13 109/58 05/08/16 05:30 66 15 107/53 05/08/16 05:15 73 13 105/55 05/08/16 05:00 61 14 103/47 05/08/16 04:45 83 16 91/48 05/08/16 04:30 97.0 F L 64 16 85/51 05/08/16 04:15 62 16 77/46 05/08/16 04:00 59 L 15 86/38 05/08/16 03:45 67 18 73/39 05/08/16 03:30 87 17 77/40 03/27/17 03:15 84 22 96/42 05/08/16 03:00 87 19 90/38 05/08/16 02:45 82 16 85/41 05/08/16 02:30 85 18 97/44 05/08/16 02:15 76 13 98/48 05/08/16 02:00 92 17 98/45 05/08/16 01:45 96.9 F L 87 18 86/42 05/07/16 23:54 97.1 F L 77 15 79/38 05/07/16 23:10 72/40 05/07/16 23:04 68 20 05/07/16 21:45 97.6 F 74 20 79/48 05/07/16 21:11 97 F L 77 20 102/52 05/07/16 20:44 104/51 05/07/16 20:34 94/58 05/07/16 19:50 91 22 92/53 Pulse Ox 05/08/16 16:02 93 L 05/08/16 15:00 93 L 05/08/16 14:00 98 05/08/16 13:00 98 05/08/16 12:00 99 05/08/16 11:30 97 05/08/16 11:25 84 L 05/08/16 11:20 80 L 05/08/16 11:00 94 L 05/08/16 10:00 97 05/08/16 09:00 98 05/08/16 08:00 100 05/08/16 07:45 98 05/08/16 07:30 99 05/08/16 07:15 100 05/08/16 07:00 100 05/08/16 06:45 98 05/08/16 06:30 99 05/08/16 06:15 99 05/08/16 06:00 100 05/08/16 05:45 100 05/08/16 05:30 100 05/08/16 05:15 98 05/08/16 05:00 92 L 05/08/16 04:45 98 05/08/16 04:30 100 05/08/16 04:15 100 05/08/16 04:00 100 05/08/16 03:45 99 05/08/16 03:30 99 05/08/16 03:15 97 05/08/16 03:00 95 05/08/16 02:45 96 05/08/16 02:30 95 05/08/16 02:15 95 05/08/16 02:00 90 L 05/08/16 01:45 92 L 05/07/16 23:54 100 05/07/16 23:10 05/07/16 23:04 05/07/16 21:45 96 05/07/16 21:11 98 05/07/16 20:44 05/07/16 20:34 05/07/16 19:50 100 Intake and Output 05/08/16 05/08/16 05/08/16 06:59 14:59 22:59 Intake Total 2090.0 477.983 75 Output Total 730 275 55 Balance 1360.0 202.983 20 Intake: IV 2090.0 260.0 75 NS 40 210 75 Piperacillin-Tazobactam 3 50.0 50.0 .375 gm In Dextrose/Water 1 50ml.bag @ 12.5 mls/hr IVPB Q8HR [facility] Rx#: [id number] Sodium Chloride 0.9% 1, 2000 000 ml @ 999 mls/hr IV . Q1H1M [facility] Rx#:[id number] Intake, IV Titration 167.983 Amount Norepinephrine 4 mg In 117.983 Sodium Chloride 0.9% 250 ml @ Titrate IV .Q0M [facility] Rx#:[id number] cefTRIAXone 1,000 mg In 50 Sodium Chloride 0.9% 50 ml @ 100 mls/hr IVPB Q24HR [facility] Rx#:[id number] Oral 50 Output: Urine 730 275 55 Other: Voiding Method Indwelling Catheter Indwelling Catheter Weight 176 kg Patient Weight 05/09/16 06:59 Weight 176 kg Gen: patient is on bipap, he does open his eyes and answer questions although he is difficult to arouse CV: IRR, s1/s2, tachy 100's Lungs: coarse breath sounds bilaterally Abd: soft, NT/ND, +BS Ext: +2 pitting edema, chronic venous stasis Results CBC & Chem 7: 05/08/16 05:26 05/08/16 05:26 Labs: Abnormal Lab Results - Last 24 Hours (Table) 05/07/16 05/08/16 05/08/16 Range/Units 23:42 00:39 05:26 WBC (3.8-10.6) k/uL RBC (4.30-5.90) m/uL Hgb (13.0-17.5) gm/dL Hct (39.0-53.0) % MCHC (31.0-37.0) g/dL RDW (11.5-15.5) % Neutrophils # (1.3-7.7) k/uL Lymphocytes # (1.0-4.8) k/uL PT (9.0-12.0) sec Sodium (137-145) mmol/L BUN (9-20) mg/dL Creatinine (0.66-1.25) mg/dL Glucose (74-99) mg/dL POC Glucose (mg/dL) 130 H (75-99) mg/dL Calcium (8.4-10.2) mg/dL Phosphorus (2.5-4.5) mg/dL TIBC (261-462) ug/dL % Saturation (20-50) % Alkaline Phosphatase (38-126) U/L Troponin I 0.096 H* 0.114 H* (0.000-0.034) ng/mL Total Protein (6.3-8.2) g/dL Albumin (3.5-5.0) g/dL 05/08/16 05/08/16 05/08/16 Range/Units 05:26 05:26 05:26 WBC 11.1 H (3.8-10.6) k/uL RBC 2.96 L (4.30-5.90) m/uL Hgb 7.5 L (13.0-17.5) gm/dL Hct 26.5 L (39.0-53.0) % MCHC 28.4 L (31.0-37.0) g/dL RDW 23.6 H (11.5-15.5) % Neutrophils # 10.2 H (1.3-7.7) k/uL Lymphocytes # 0.3 L (1.0-4.8) k/uL PT (9.0-12.0) sec Sodium 134 L (137-145) mmol/L BUN 125 H* (9-20) mg/dL Creatinine 3.30 H (0.66-1.25) mg/dL Glucose 138 H (74-99) mg/dL POC Glucose (mg/dL) (75-99) mg/dL Calcium 7.8 L (8.4-10.2) mg/dL Phosphorus 6.2 H (2.5-4.5) mg/dL TIBC 174 L (261-462) ug/dL % Saturation 52.9 H (20-50) % Alkaline Phosphatase 231 H (38-126) U/L Troponin I (0.000-0.034) ng/mL Total Protein 4.3 L (6.3-8.2) g/dL Albumin 2.1 L (3.5-5.0) g/dL 05/08/16 05/08/16 05/08/16 Range/Units 05:26 08:42 12:22 WBC (3.8-10.6) k/uL RBC (4.30-5.90) m/uL Hgb (13.0-17.5) gm/dL Hct (39.0-53.0) % MCHC (31.0-37.0) g/dL RDW (11.5-15.5) % Neutrophils # (1.3-7.7) k/uL Lymphocytes # (1.0-4.8) k/uL PT 17.2 H (9.0-12.0) sec Sodium (137-145) mmol/L BUN (9-20) mg/dL Creatinine (0.66-1.25) mg/dL Glucose (74-99) mg/dL POC Glucose (mg/dL) 164 H 159 H (75-99) mg/dL Calcium (8.4-10.2) mg/dL Phosphorus (2.5-4.5) mg/dL TIBC (261-462) ug/dL % Saturation (20-50) % Alkaline Phosphatase (38-126) U/L Troponin I (0.000-0.034) ng/mL Total Protein (6.3-8.2) g/dL Albumin (3.5-5.0) g/dL Microbiology - Last 24 Hours (Table) 05/08/16 02:10 Urine Culture - Preliminary Urine,Catheterized Chest x-ray: report reviewed, image reviewed Thrombosis Risk Factor Assmnt - DVT/VTE Prophylaxis DVT/VTE Prophylaxis: Pharmacologic Prophylaxis ordered - Choose All That Apply Any of the Below Risk Factors Present?: Yes Each Factor Represents 1 point: Medical pt on bed rest, Obesity (BMI >25), Sepsis (< 1month), Swollen legs (current) Each Risk Factor Represents 2 Points: Patient confined to bed Each Risk Factor Represents 3 Points: Family history of DVT/PE Thrombosis Risk Factor Assessment Total Risk Factor Score: 9 Thrombosis Risk Factor Assessment Level: High Risk Assessment and Plan Plan: Acute on chronic hypoxic respiratory failure HCAP Acute on chronic renal failure, CKD 4 Septic shock UTI POA Systolic CHF, EF 35-40% Mild to moderate pulmonary hypertension, RVSP 46 mmHg Recend C diff colitis Bicytopenia NSTEMI Coumadin coagulopathy POA, now resolved Hyponatremia Hx strep pyogenes bacteremia AECOPD GUICHO/OHS, on bipap Hx tobacco abuse DM2 PCM Morbid obesity Continue Bipap support, wean FiO2 for sat > or = 88% ABX: Change to Cefepime and Vanco to cover HCAP Begin subcu heparin, patient was given Vit K for coumadin reveral - will discuss heparin drip with cardiology team Blood, urine, sputum cultures Check Influenza Consult cardio and nephro Continue Levophed, wean as able for MAP > 65 Case discussed with nephro, will give 0.9NS @ 75 cc/hr for now, monitor respiratory status Rate control with amio, hold carvedilol due to hypotension Protonix for GI prophylaxis Begin Duonebs and Pulmicort All other home meds on hold for now Consult ID The patient's daughter is at bedside and is updated to the plan of care. She is aware of his critical condition. She is aware he made need HD at some point We are following and covering for Dr. Seth as well and will continue to follow for intesivist care.
[2016-05-08] MEDS ORDERED: IV VANCOMYCIN PER PHARMACY 1 EACH MISC MISCELLANE PRN (17:11)
[2016-05-08] MEDS: CEFEPIME 2 GM in SODIUM CHLORIDE 0.9% 50 ML IVPB SCH (17:58)
[2016-05-08 18:04] LABS: Glucose,Whole Blood 185 mg/dL (75-99)
--- NOTE | 2016-05-08 18:13 | P.PN ---
Progress Note - Text Came to follow up on the patient in the ICU. P patient is more hypotensive and requiring more levophed. Vasopressin will be initiated. He will be given another liter bolus of fluids. We will also place a central line and an arterial line. His urine output has improved to 40 mL an hour. The patient is currently off of BiPAP on nasal cannula with an O2 saturation 92%.
[2016-05-08] MEDS: SODIUM CHLORIDE 0.9% 1,000 ML IV SCH (18:24)
--- NOTE | 2016-05-08 19:10 | P.PCN ---
Date of Procedure: 05/08/16 Preoperative Diagnosis: Septic shock, hemodynamic instability Postoperative Diagnosis: same Procedure(s) Performed: Right IJ central line Surgeon: Lyric Knox Estimated Blood Loss (ml): 2 Condition: critical Disposition: ICU Indications for Procedure: Septic shock requiring vasopressors Description of Procedure: A time out was preformed identifying the correct procedure, the correct location with the nursing staff. The right neck was prepped with 2% chlorhexidine and draped with a full length sterile sheet in the usual fashion. The right internal jugular vein was accessed under ultrasound guidance with an 18 gauge thin wall needle. A triple lumen catheter was inserted via the seldinger technique. Blood was withdrawn from all lumens and flushed with normal saline. The catheter was sutured in place and a sterile dressing was applied over the site prior to removal of drapes. The patient tolerated the procedure well and there were no complications. Chest x ray is pending at this time.
--- NOTE | 2016-05-08 19:13 | P.PCN ---
Date of Procedure: 05/08/16 Preoperative Diagnosis: Hemodynamic instability, septic shock Postoperative Diagnosis: Same Procedure(s) Performed: Left radial arterial line Surgeon: Lyric Knox Condition: critical Disposition: ICU Indications for Procedure: Septic shock requiring vasopressors, hemodynamic instability, frequent blood pressure monitoring Description of Procedure: Technique: A time out was preformed identifying the correct procedure, the correct location with the nursing staff. The left wrist was prepped with 2% chlorhexidine and draped with a sterile sheet in the usual fashion. The radial artery was cannulated with a 20 gauge catheter. The catheter was sutured in place and a sterile dressing was applied over the site prior to removal of drapes. The patient tolerated the procedure well and there were no complications.
--- NOTE | 2016-05-08 19:30 | XR ---
EXAMINATION TYPE: XR chest 1V portable DATE OF EXAM: 05/08/2016 7:21 PM COMPARISON: Today HISTORY: Central line placement TECHNIQUE: Single frontal view of the chest is obtained. FINDINGS: There is pulmonary edema. There is significant opacification of left lower hemithorax. The re is a right central venous catheter that has tip probably in the lower superior vena cava. IMPRESSION: Right jugular catheter appears in good position. Pulmonary edema and left lower lobe con solidation is unchanged compared to exam earlier today at 1:30 AM.
[2016-05-08] MEDS: IPRATROPIUM-ALBUTEROL 3 ML NEB INHALATION SCH (19:58)
[2016-05-08] MEDS: BUDESONIDE 0.5 MG/2 ML NEBU INHALATION SCH (19:58)
[2016-05-08] MEDS ORDERED: VANCOMYCIN 2,500 MG in SODIUM CHLORIDE 0.9% 500 ML IVPB ONE (20:00)
[2016-05-08] MEDS: NOREPINEPHRINE 16 MG in SODIUM CHLORIDE 0.9% 250 ML IV SCH (20:13)
--- NOTE | 2016-05-08 20:37 | CONS ---
DATE OF CONSULTATION: Admitted by Dr. Lyric Knox. Patient admitted to the hospital with acute on chronic renal failure and known patient of chronic atrial fibrillation, diabetes mellitus, GERD syndrome, hypertension, osteoarthritis. Patient was brought to the hospital from the ) presents to the hospital from the [facility] where he was found to be unresponsive. Patient is morbidly obese with multiple medical problems. Patient barely opens his eyes and most of the information is collected from the chart and computers. Denies any chest pain and patient was initially nonoliguric. Urine output in the range of 40 to 50 mL per hour. Patient's creatinine is gone up to 3.3 with a BUN of 125. His chronic baseline creatinine is around 2. Patient's because of the low blood pressure, patient was given Amiodarone 400 mg p.o. b.i.d. drop it down to 200 mg p.o. b.i.d. and patient's Coreg is on hold because of borderline blood pressure. The patient is continued on diuretics and IV fluids. Patient's past history remarkable for all the things stated above, a former smoker. Medications prior to admission included: 1. Hytrin. 2. Tylenol as needed. 3. Allopurinol 300 mg p.o. daily. 4. Amiodarone 400 mg p.o. b.i.d. 5. Tessalon Perles 100 mg every 8 hours. 6. Pulmicort 0.5 mg b.i.d. 7. Carvedilol 6.25 mg p.o. b.i.d. 8. Flexeril 5 mg p.r.n. 9. Colace 100 mg p.o. b.i.d. 10. Famotidine 200 mg p.o. daily. 11. Fluticasone nasal spray 2 sprays in each nostril daily. 12. Furosemide 40 mg p.o. b.i.d. 13. Gabapentin 100 mg p.o. t.i.d. 14. [place] as needed. 15. Patient is on insulin Glargine 30 units subcu at bedtime, 29 p.m. 16. Insulin Lispro subcu a.c. and t.i.d. per protocol. 17. Patient is also on Duoneb inhalers. 18. Lactulose 20 grams every 8 hours. 19. Flomax 0.4 mg p.o. daily. 20. Warfarin 5 mg p.o. daily. 21. ( ) 100 mg q.6 hours. ALLERGIES: None mentioned. VITAL SIGNS: Pulse rate of 83 beats per minute irregularly irregular, blood pressure of 96/58, respirations of 22. Head normocephalic. HEENT unremarkable. Neck is supple. No thyroid enlargement. No bruit noted. Good carotid upstroke. CARDIAC EXAMINATION: Regular rate and rhythm. S1 and S2. Lungs are clear to auscultation and percussion. Breath sounds are decreased ( ). ABDOMEN: Soft, no organomegaly. EXTREMITIES: 1+ pedal edema. ACCESS COORDINATOR examination: Grossly within normal limits. ASSESSMENT: 1. Atrial fibrillation with controlled ventricular rate, chronic. 2. Nonoliguric acute kidney injury secondary to acute tubular necrosis. Patient has chronic kidney disease, stage IV. 3. Chronic systolic dysfunction with an ejection fraction is around 30 to 35%. Anemia secondary to chronic renal failure. 4. Hypotension requiring aggressive vasopressor support. Patient is on two vasopressors. 5. Morbid exogenous obesity. RECOMMENDATIONS: Concur with current therapy. Patient will be followed ( ). We will check pro times tomorrow. If the pro times drop, we will give Coumadin. Patient is on antibiotics, probably pro time may go up.
[2016-05-08 21:25] LABS: Glucose,Whole Blood 196 mg/dL (75-99)
[2016-05-08] MEDS: SODIUM CHLORIDE 0.9% 99 ML with VASOPRESSIN 20 UNIT IV SCH ×2 (22:29)
[2016-05-09 01:11] LABS: Glucose,Whole Blood 167 mg/dL (75-99)
[2016-05-09] MEDS: INSULIN LISPRO (humaLOG) 300 UNIT/3 ML VIAL SQ SCH ×4 (01:12→18:02)
[2016-05-09] MEDS: HEPARIN SODIUM,PORCINE 5,000 UNIT/ML 1 ML VIAL SQ SCH ×3 (01:13→16:50)
[2016-05-09] MEDS: IPRATROPIUM-ALBUTEROL 3 ML NEB INHALATION SCH ×6 (03:13→18:59)
[2016-05-09 05:32] LABS: Glucose,Whole Blood 151 mg/dL (75-99)
[2016-05-09 06:14] LABS: Anisocytosis Marked; Basophils % (A) 0 %; CH 25.5; CHCM 28.9; Eosinophils % (A) 0 %; HCT 27.8 % (39.0-53.0); HDW 3.91; HGB 7.8 gm/dL (13.0-17.5); Hypochromasia Marked; Luc # (Auto) 0.31; Luc % (Auto) 2; Lymphocytes # (A) 0.4 k/uL (1.0-4.8); Lymphocytes % (A) 3 %; MCH 24.7 pg (25.0-35.0); MCHC 28.1 g/dL (31.0-37.0); MCV 87.9 fL (80.0-100.0); Macrocytosis Slight; Mean Platelet Volume 8.5; Microcytosis Slight; Monocytes # (A) 0.7 k/uL (0-1.0); Monocytes % (A) 5 %; Neutrophils # (A) 11.8 k/uL (1.3-7.7); Neutrophils % (A) 89 %; Poikilocytosis Slight; RBC 3.17 m/uL (4.30-5.90); RDW 24.9 % (11.5-15.5); WBC 13.2 k/uL (3.8-10.6); WBC (Perox) 13.67
[2016-05-09 06:17] LABS: INR 2.4 (<1.1); Prothrombin Time 23.1 sec (9.0-12.0)
[2016-05-09 06:34] LABS: Calcium 7.8 mg/dL (8.4-10.2); Magnesium 1.9 mg/dL (1.6-2.3); Potassium 4.1 mmol/L (3.5-5.1)
[2016-05-09] MEDS: SODIUM CHLORIDE 0.9% 99 ML with VASOPRESSIN 20 UNIT IV SCH ×4 (07:45→20:06)
[2016-05-09] MEDS: SODIUM CHLORIDE 0.9% 1,000 ML IV SCH ×2 (07:52→20:05)
[2016-05-09] MEDS: BUDESONIDE 0.5 MG/2 ML NEBU INHALATION SCH ×2 (08:04→18:59)
[2016-05-09 08:25] LABS: Glucose,Whole Blood 144 mg/dL (75-99)
[2016-05-09] MEDS ORDERED: PANTOPRAZOLE 40 MG/10 ML VIAL IVP SCH (09:00)
--- NOTE | 2016-05-09 09:26 | XR ---
EXAMINATION TYPE: XR chest 1V portable DATE OF EXAM: 05/09/2016 6:22 AM COMPARISON: Prior chest x-ray 08 May 2016 HISTORY: Congestive heart failure TECHNIQUE: Single frontal view of the chest is obtained. FINDINGS: The heart is enlarged, right jugular central venous catheter is again noted, distal tip ov erlying the right atrium. There are overlying cardiac leads and the patient is rotated. Air bronchogr ams suspected in the retrocardiac region. There is no evident pneumothorax. Interstitium and central vascularity are prominent. Heart is likely enlarged. IMPRESSION: Difficult to exclude an enlarging pleural effusion. Findings compatible with congestive heart failure. Additional follow-up recommended.
[2016-05-09] MEDS: AMIODARONE 200 MG TAB PO SCH ×2 (09:59→21:48)
--- NOTE | 2016-05-09 10:07 | P.PN ---
Subjective Patient is seen in follow-up for acute kidney injury on chronic kidney disease. Patient has chronic kidney disease stage IV secondary to solitary right kidney and cardiorenal syndrome with baseline creatinine in the range of 2.5-3. Creatinine was 3.3 on admission and is down to 3.03. He is currently maintained on normal saline at 75 mL an hour as well as levo fed and vasopressin. His urine output has improved and is near 100 mL an hour. Patient is awake and alert. He denies any chest pain or shortness of breath. Denies vomiting or diarrhea. Did have breakfast this morning. Vital signs are stable. General: The patient appeared well nourished and normally developed. HEENT: Head exam is unremarkable. Neck is without jugular venous distension. LUNGS: Rhonchi at bases. Breath sounds decreased. HEART: Rate and Rhythm are regular. First and second heart sounds normal. No murmurs, rubs or gallops. ABDOMEN: Abdominal exam reveals normal bowel sounds. Non-tender and non- distended. No evidence of peritonitis. EXTREMITITES: 1+ edema. Chronic venous stasis changes. Objective - Vital Signs Vital signs: Vital Signs Temp 99.2 F 05/09/16 08:00 Pulse 98 05/09/16 09:30 Resp 27 H 05/09/16 09:30 BP 100/47 05/08/16 19:00 Pulse Ox 92 L 05/09/16 09:30 Intake & Output 05/08/16 05/09/16 05/09/16 18:59 06:59 18:59 Intake Total 9609.105 8142.661 266.143 Output Total 450 965 320 Balance 5272.856 3006.661 -53.857 Weight 176 kg 170.7 kg Intake: IV 1122.5 2020 258 NS 1010 641 6 Piperacillin-Tazobactam 3 112.5 .375 gm In Dextrose/Water 1 50ml.bag @ 12.5 mls/hr IVPB Q8HR [facility] Rx#: [id number] Sodium Chloride 0.9% 1, 825 225 000 ml @ 75 mls/hr IV . [id number] [facility] Rx#:[id number] Sodium Chloride 0.9% 99 54 27 ml @ 0.03 UNITS/MIN 9 mls /hr IV .Q11H7M [facility] with Vasopressin 20 unit Rx#: [id number] Vancomycin 2,500 mg In 500 Sodium Chloride 0.9% 500 ml @ 167 mls/hr IVPB ONCE ONE Rx#:[id number] Intake, IV Titration 354.000 150.661 8.143 Amount Cefepime 2 gm In Sodium 50 Chloride 0.9% 50 ml @ 100 mls/hr IVPB Q24H [facility] Rx# :[id number] Norepinephrine 16 mg In 150.661 8.143 Sodium Chloride 0.9% 250 ml @ Titrate IV .Q0M [facility] Rx#:[id number] Norepinephrine 4 mg In 254.000 Sodium Chloride 0.9% 250 ml @ Titrate IV .Q0M [facility] Rx#:[id number] cefTRIAXone 1,000 mg In 50 Sodium Chloride 0.9% 50 ml @ 100 mls/hr IVPB Q24HR [facility] Rx#:[id number] Oral 50 60 Output: Urine 450 965 320 Other: Voiding Method Indwelling Catheter Indwelling Catheter Indwelling Catheter # Bowel Movements 1 ABP, PAP, CO, CI - Last Documented Arterial Blood Pressure 107/49 - Labs CBC & Chem 7: 05/09/16 05:50 05/09/16 05:50 Labs: Abnormal Lab Results - Last 24 Hours (Table) 05/08/16 05/08/16 05/08/16 Range/Units 05:26 05:26 12:22 WBC (3.8-10.6) k/uL RBC (4.30-5.90) m/uL Hgb (13.0-17.5) gm/dL Hct (39.0-53.0) % MCH (25.0-35.0) pg MCHC (31.0-37.0) g/dL RDW (11.5-15.5) % Neutrophils # (1.3-7.7) k/uL Lymphocytes # (1.0-4.8) k/uL PT (9.0-12.0) sec Sodium 134 L (137-145) mmol/L BUN 125 H* (9-20) mg/dL Creatinine 3.30 H (0.66-1.25) mg/dL Glucose 138 H (74-99) mg/dL POC Glucose (mg/dL) 159 H (75-99) mg/dL Calcium 7.8 L (8.4-10.2) mg/dL Phosphorus 6.2 H (2.5-4.5) mg/dL TIBC 174 L (261-462) ug/dL % Saturation 52.9 H (20-50) % Alkaline Phosphatase 231 H (38-126) U/L Total Protein 4.3 L (6.3-8.2) g/dL Albumin 2.1 L (3.5-5.0) g/dL 05/08/16 05/08/16 05/09/16 Range/Units 17:44 21:05 01:09 WBC (3.8-10.6) k/uL RBC (4.30-5.90) m/uL Hgb (13.0-17.5) gm/dL Hct (39.0-53.0) % MCH (25.0-35.0) pg MCHC (31.0-37.0) g/dL RDW (11.5-15.5) % Neutrophils # (1.3-7.7) k/uL Lymphocytes # (1.0-4.8) k/uL PT (9.0-12.0) sec Sodium (137-145) mmol/L BUN (9-20) mg/dL Creatinine (0.66-1.25) mg/dL Glucose (74-99) mg/dL POC Glucose (mg/dL) 185 H 196 H 167 H (75-99) mg/dL Calcium (8.4-10.2) mg/dL Phosphorus (2.5-4.5) mg/dL TIBC (261-462) ug/dL % Saturation (20-50) % Alkaline Phosphatase (38-126) U/L Total Protein (6.3-8.2) g/dL Albumin (3.5-5.0) g/dL 05/09/16 05/09/16 05/09/16 Range/Units 05:12 05:50 05:50 WBC 13.2 H (3.8-10.6) k/uL RBC 3.17 L (4.30-5.90) m/uL Hgb 7.8 L (13.0-17.5) gm/dL Hct 27.8 L (39.0-53.0) % MCH 24.7 L (25.0-35.0) pg MCHC 28.1 L (31.0-37.0) g/dL RDW 24.9 H (11.5-15.5) % Neutrophils # 11.8 H (1.3-7.7) k/uL Lymphocytes # 0.4 L (1.0-4.8) k/uL PT (9.0-12.0) sec Sodium (137-145) mmol/L BUN 112 H* (9-20) mg/dL Creatinine 3.00 H (0.66-1.25) mg/dL Glucose 142 H (74-99) mg/dL POC Glucose (mg/dL) 151 H (75-99) mg/dL Calcium 7.8 L (8.4-10.2) mg/dL Phosphorus 5.0 H (2.5-4.5) mg/dL TIBC (261-462) ug/dL % Saturation (20-50) % Alkaline Phosphatase (38-126) U/L Total Protein (6.3-8.2) g/dL Albumin (3.5-5.0) g/dL 05/09/16 05/09/16 Range/Units 05:50 08:23 WBC (3.8-10.6) k/uL RBC (4.30-5.90) m/uL Hgb (13.0-17.5) gm/dL Hct (39.0-53.0) % MCH (25.0-35.0) pg MCHC (31.0-37.0) g/dL RDW (11.5-15.5) % Neutrophils # (1.3-7.7) k/uL Lymphocytes # (1.0-4.8) k/uL PT 23.1 H (9.0-12.0) sec Sodium (137-145) mmol/L BUN (9-20) mg/dL Creatinine (0.66-1.25) mg/dL Glucose (74-99) mg/dL POC Glucose (mg/dL) 144 H (75-99) mg/dL Calcium (8.4-10.2) mg/dL Phosphorus (2.5-4.5) mg/dL TIBC (261-462) ug/dL % Saturation (20-50) % Alkaline Phosphatase (38-126) U/L Total Protein (6.3-8.2) g/dL Albumin (3.5-5.0) g/dL Microbiology - Last 24 Hours (Table) 05/08/16 02:10 Urine Culture - Preliminary Urine,Catheterized Assessment and Plan Plan: Assessment: #1. Nonoliguric acute kidney injury secondary to ischemic ATN secondary to hypotension. Creatinine improved to 3.0 today. #2. Chronic kidney disease stage IV secondary to solitary right kidney and multiple acute kidney injuries. Baseline creatinine 2 but recently has been in the range of 2.5-3. #3. Systolic CHF with ejection fraction of 30-35%. #4. Anemia. Iron replete. Hemoglobin stable. #5. Hypotension requiring vasopressor support. #6. Elevated BUN related to acute kidney injury. He is currently not on any steroids. Stool for occult blood noted to be positive. Plan: Continue normal saline to be run at 75 mL an hour. Lasix 40 mg IV once today. Wean vasopressors as blood pressure tolerates. Start Aranesp. Encourage oral intake. Maintain Salinas catheter with strict I's and O's. Repeat electrolytes in the morning. Follow-up cultures. Antibiotics per infectious disease recommendations. No need for renal replacement therapy at this time. Will continue to assess on a day-to-day basis.
[2016-05-09] MEDS ORDERED: FUROSEMIDE 10 MG/ML 4 ML VIAL IV STA (10:16)
--- NOTE | 2016-05-09 11:59 | P.PN ---
Subjective Principal diagnosis: Septic Shock Patient seen and examined in the ICU with nursing staff at bedside. The patient is much more alert today and conversational. He is still on Levophed, max overnight was 20 mcg/min and he is now weaned down to 11 mcg/min. The patient also remains on vasopressin. His urine output has markedly increased. His daughter is at bedside and is updated. Nephrology has rounded and has ordered Lasix. His INR today is 2.4. He has not had any diarrhea. Objective - Vital Signs Vital signs: Vital Signs Temp 99.2 F 05/09/16 08:00 Pulse 108 H 05/09/16 11:26 Resp 39 H 05/09/16 11:35 BP 100/47 05/08/16 19:00 Pulse Ox 92 L 05/09/16 11:00 Intake & Output 05/08/16 05/09/16 05/09/16 18:59 06:59 18:59 Intake Total 1621.477 3133.661 434.143 Output Total 450 965 845 Balance 4746.794 4889.661 -410.857 Weight 176 kg 170.7 kg Intake: IV 1122.5 2020 426 NS 1010 641 6 Piperacillin-Tazobactam 3 112.5 .375 gm In Dextrose/Water 1 50ml.bag @ 12.5 mls/hr IVPB Q8HR [facility] Rx#: [id number] Sodium Chloride 0.9% 1, 825 375 000 ml @ 75 mls/hr IV . [id number] [facility] Rx#:[id number] Sodium Chloride 0.9% 99 54 45 ml @ 0.03 UNITS/MIN 9 mls /hr IV .Q11H7M [facility] with Vasopressin 20 unit Rx#: [id number] Vancomycin 2,500 mg In 500 Sodium Chloride 0.9% 500 ml @ 167 mls/hr IVPB ONCE ONE Rx#:[id number] Intake, IV Titration 354.000 150.661 8.143 Amount Cefepime 2 gm In Sodium 50 Chloride 0.9% 50 ml @ 100 mls/hr IVPB Q24H [facility] Rx# :[id number] Norepinephrine 16 mg In 150.661 8.143 Sodium Chloride 0.9% 250 ml @ Titrate IV .Q0M [facility] Rx#:[id number] Norepinephrine 4 mg In 254.000 Sodium Chloride 0.9% 250 ml @ Titrate IV .Q0M [facility] Rx#:[id number] cefTRIAXone 1,000 mg In 50 Sodium Chloride 0.9% 50 ml @ 100 mls/hr IVPB Q24HR [facility] Rx#:[id number] Oral 50 60 Output: Urine 450 965 845 Other: Voiding Method Indwelling Catheter Indwelling Catheter Indwelling Catheter # Bowel Movements 1 ABP, PAP, CO, CI - Last Documented Arterial Blood Pressure 91/46 - Exam Gen: Alert and oriented 3, currently on nasal cannula CV: IRR, s1/s2, tachy 100's Lungs: coarse breath sounds bilaterally Abd: soft, NT/ND, +BS Ext: +2 pitting edema, chronic venous stasis - Labs CBC & Chem 7: 05/09/16 05:50 05/09/16 05:50 Labs: Abnormal Lab Results - Last 24 Hours (Table) 05/08/16 05/08/16 05/08/16 Range/Units 05:26 12:22 17:44 WBC (3.8-10.6) k/uL RBC (4.30-5.90) m/uL Hgb (13.0-17.5) gm/dL Hct (39.0-53.0) % MCH (25.0-35.0) pg MCHC (31.0-37.0) g/dL RDW (11.5-15.5) % Neutrophils # (1.3-7.7) k/uL Lymphocytes # (1.0-4.8) k/uL PT (9.0-12.0) sec Sodium 134 L (137-145) mmol/L BUN 125 H* (9-20) mg/dL Creatinine 3.30 H (0.66-1.25) mg/dL Glucose 138 H (74-99) mg/dL POC Glucose (mg/dL) 159 H 185 H (75-99) mg/dL Calcium 7.8 L (8.4-10.2) mg/dL Phosphorus 6.2 H (2.5-4.5) mg/dL Alkaline Phosphatase 231 H (38-126) U/L Total Protein 4.3 L (6.3-8.2) g/dL Albumin 2.1 L (3.5-5.0) g/dL 03/05/09/16 05/09/16 Range/Units 21:05 01:09 05:12 WBC (3.8-10.6) k/uL RBC (4.30-5.90) m/uL Hgb (13.0-17.5) gm/dL Hct (39.0-53.0) % MCH (25.0-35.0) pg MCHC (31.0-37.0) g/dL RDW (11.5-15.5) % Neutrophils # (1.3-7.7) k/uL Lymphocytes # (1.0-4.8) k/uL PT (9.0-12.0) sec Sodium (137-145) mmol/L BUN (9-20) mg/dL Creatinine (0.66-1.25) mg/dL Glucose (74-99) mg/dL POC Glucose (mg/dL) 196 H 167 H 151 H (75-99) mg/dL Calcium (8.4-10.2) mg/dL Phosphorus (2.5-4.5) mg/dL Alkaline Phosphatase (38-126) U/L Total Protein (6.3-8.2) g/dL Albumin (3.5-5.0) g/dL 05/09/16 05/09/16 05/09/16 Range/Units 05:50 05:50 05:50 WBC 13.2 H (3.8-10.6) k/uL RBC 3.17 L (4.30-5.90) m/uL Hgb 7.8 L (13.0-17.5) gm/dL Hct 27.8 L (39.0-53.0) % MCH 24.7 L (25.0-35.0) pg MCHC 28.1 L (31.0-37.0) g/dL RDW 24.9 H (11.5-15.5) % Neutrophils # 11.8 H (1.3-7.7) k/uL Lymphocytes # 0.4 L (1.0-4.8) k/uL PT 23.1 H (9.0-12.0) sec Sodium (137-145) mmol/L BUN 112 H* (9-20) mg/dL Creatinine 3.00 H (0.66-1.25) mg/dL Glucose 142 H (74-99) mg/dL POC Glucose (mg/dL) (75-99) mg/dL Calcium 7.8 L (8.4-10.2) mg/dL Phosphorus 5.0 H (2.5-4.5) mg/dL Alkaline Phosphatase (38-126) U/L Total Protein (6.3-8.2) g/dL Albumin (3.5-5.0) g/dL 05/09/16 Range/Units 08:23 WBC (3.8-10.6) k/uL RBC (4.30-5.90) m/uL Hgb (13.0-17.5) gm/dL Hct (39.0-53.0) % MCH (25.0-35.0) pg MCHC (31.0-37.0) g/dL RDW (11.5-15.5) % Neutrophils # (1.3-7.7) k/uL Lymphocytes # (1.0-4.8) k/uL PT (9.0-12.0) sec Sodium (137-145) mmol/L BUN (9-20) mg/dL Creatinine (0.66-1.25) mg/dL Glucose (74-99) mg/dL POC Glucose (mg/dL) 144 H (75-99) mg/dL Calcium (8.4-10.2) mg/dL Phosphorus (2.5-4.5) mg/dL Alkaline Phosphatase (38-126) U/L Total Protein (6.3-8.2) g/dL Albumin (3.5-5.0) g/dL Microbiology - Last 24 Hours (Table) 05/09/16 05:50 Genital Culture - Preliminary Penis 05/08/16 02:10 Urine Culture - Preliminary Urine,Catheterized Assessment and Plan Plan: Acute on chronic hypoxic respiratory failure HCAP Acute on chronic renal failure, CKD 4 Septic shock Afib with CVR UTI POA Systolic CHF, EF 35-40% Mild to moderate pulmonary hypertension, RVSP 46 mmHg Recent C diff colitis Bicytopenia NSTEMI Coumadin coagulopathy POA, now resolved Hyponatremia Hx strep pyogenes bacteremia AECOPD GUICHO/OHS, on bipap Hx tobacco abuse DM2 PCM Morbid obesity Continue Bipap support, wean FiO2 for sat > or = 88% ABX: Continue Cefepime and Vanco to cover HCAP Begin subcu heparin, patient was given Vit K for coumadin reveral - will discuss heparin drip with cardiology team Monitor INR Blood, urine, sputum cultures Nephro and cardio consulted Continue Levophed, wean as able for MAP > 65 0.9NS @ 75 cc/hr for now Rate control with amio, hold carvedilol due to hypotension Protonix for GI prophylaxis Continue Duonebs and Pulmicort All other home meds on hold for now Consult ID Add SoluCortef Transfuse 1 unit PRBC now Measure CVP The patient's daughter is at bedside and is updated to the plan of care. She is aware of his critical condition. We are following and covering for Dr. Seth as well and will continue to follow for intesivist care.
[2016-05-09] MEDS: HYDROCORTISONE SUCCINATE 100 MG/2 ML VIAL IV SCH (12:21)
[2016-05-09] MEDS: DARBEPOETIN ALFA 40 MCG/0.4 ML SYRINGE SQ SCH (12:21)
[2016-05-09 12:22] LABS: Glucose,Whole Blood 186 mg/dL (75-99)
--- NOTE | 2016-05-09 16:59 | CONS ---
DATE OF CONSULTATION: 05/09/2016 HISTORY OF PRESENT ILLNESS: The patient is a 56-year-old male, well known to my service from previous episode of streptococcal agalactiae bacteremia secondary to cellulitis, followed by prolonged hospital stay and subsequently was at [facility] and [place] which the patient did have significant diarrhea. The patient was recently treated for C. dif colitis. Patient subsequently has been sent to the [facility] on the [place] for rehabilitation. Patient was noticed to be unresponsive on 05/07/2016 for which EMS was called in apparently. The EMS on arrival found the patient was not responding to any painful stimuli, they laid him down and gave him three rescue breaths and he become more awake and alert but slightly confused at that time but in no respiratory distress. Patient subsequently was brought into the [facility] ER and had an x-ray showing left lower lobe pneumonia cannot be entirely excluded. The patient started on broad spectrum IV antibiotics in the form of Cefepime and vancomycin. Since then the patient had been in the ICU. The patient did require pressor support in the form of levophed, the dose has been brought down as of this morning. The patient did have blood cultures obtained which are currently negative. Urine so far negative as well. No sputum has been collected. Patient did have a normal white count 7.8, on admission, is up to 13.2 and now. The patient denies having any headache. Denies having any URI symptoms. Denies any significant chest pain or shortness of breath. Some mild cough, but not bringing up any sputum. Denies any abdominal pain. Did not have any diarrhea and no pain or swelling and no pain in the legs area. REVIEW OF SYSTEMS: CONSTITUTIONAL: Positive for weakness, no fever has been recorded. EYES: No complaint. ENT: No complaint. RESPIRATORY: As per HPI. CARDIOVASCULAR: No complaint. GENITOURINARY: as per HPI GASTROINTESTINAL: No complaint. MUSCULOSKELETAL: No complaint. INTEGUMENTARY: As per HPI. PSYCHOLOGIC: No complaint. NEUROLOGIC: No complaint. ENDOCRINE: No complaint. NEUROLOGICAL: No complaint. Past medical history of diabetes mellitus, congestive heart failure, atrial fibrillation, gastroesophageal reflux disease, hypertension, osteoarthritis, pneumonia, rheumatoid arthritis, sleep apnea, C. difficile colitis, Staphylococcal agalactiae bacteremia, depression. PAST SURGICAL HISTORY: No major surgery documented in the chart. SOCIAL HISTORY: Remote history of smoking, no drinking or drug use. FAMILY HISTORY: Father with history of aneurysm, mother with history of diabetes and CVA. ALLERGIES: No known drug allergies. Medications currently include the patient is on: 1. DuoNeb. 2. Amiodarone. 3. Pulmicort. 4. Coreg. 5. Cefepime 2 grams q.24. 6. He is on heparin. 7. Solu-Cortef. 8. Humalog. 9. Protonix. 10. Vancomycin. On examination, the blood pressure is 114/54 with a pulse of 112, temperature is 100, he is 93% on 2 L nasal cannula. General description is a middle-age male lying in bed in no distress. HEENT EXAMINATION: Pallor. There is no scleral icterus. Oral mucosa membranes dry. NECK: Trachea central. No thyromegaly. LUNGS: Unlabored breathing. Some coarse breath sounds in the bases. No wheeze. HEART: S1, S2. Regular rate and rhythm. ABDOMEN: Soft, no tenderness. No guarding or rigidity. EXTREMITIES: Chronic changes and swelling, but no definite cellulitis. SKIN: No rash, mass palpable. NEUROLOGICAL: Patient is awake, alert, oriented x3. Mood and affect normal. LABS: Hemoglobin is 7.8, white count 13.2 with a BUN of 112, creatinine 3.0. Blood culture has been negative so far. DIAGNOSTIC IMPRESSION AND PLAN: Patient admitted to the hospital with an episode of unresponsiveness in a patient who was noticed to be hypotensive requiring pressor support. Now with a fever which is more likely pneumonia and urinary tract infection cannot be entirely excluded either. The patient has been admitted to the hospital with concern for possible gram-negative pathogen also with renal insufficiency and high risk of nephrotoxicity. PLAN: 1. Will try to obtain sputum for gram stain culture and sensitivity. 2. The patient will continue on Cefepime at this time to cover for possible pneumonia as well as UTI and Vanco while watching his kidney function closely. 3. Will follow up on the clinical condition and cultures to further adjust the medication if needed. Thank you for this consultation. Will follow this patient along with you. KATHLEEN
[2016-05-09] MEDS: NOREPINEPHRINE 16 MG in SODIUM CHLORIDE 0.9% 250 ML IV SCH (17:03)
[2016-05-09] MEDS: CEFEPIME 2 GM in SODIUM CHLORIDE 0.9% 50 ML IVPB SCH (18:00)
[2016-05-09 18:16] LABS: Glucose,Whole Blood 198 mg/dL (75-99)
[2016-05-09 19:23] LABS: Anisocytosis Moderate; CH 25.6; CHCM 28.4; HDW 4.37; HGB 8.2 gm/dL (13.0-17.5); Hypochromasia Marked; MCH 26.4 pg (25.0-35.0); MCHC 29.3 g/dL (31.0-37.0); Macrocytosis Slight; Mean Platelet Volume 8.2; Poikilocytosis Moderate; RBC 3.11 m/uL (4.30-5.90); RDW 23.9 % (11.5-15.5)
[2016-05-09] MEDS: VANCOMYCIN 2,500 MG in SODIUM CHLORIDE 0.9% 500 ML IVPB SCH (21:51)
[2016-05-10] MEDS: IPRATROPIUM-ALBUTEROL 3 ML NEB INHALATION SCH ×7 (00:03→23:22)
[2016-05-10] MEDS: HEPARIN SODIUM,PORCINE 5,000 UNIT/ML 1 ML VIAL SQ SCH ×4 (00:43→23:31)
[2016-05-10] MEDS: HYDROCORTISONE SUCCINATE 100 MG/2 ML VIAL IV SCH ×4 (00:44→23:32)
[2016-05-10] MEDS: INSULIN LISPRO (humaLOG) 300 UNIT/3 ML VIAL SQ SCH ×5 (00:48→23:35)
[2016-05-10 00:54] LABS: Glucose,Whole Blood 207 mg/dL (75-99)
[2016-05-10] MEDS: SODIUM CHLORIDE 0.9% 99 ML with VASOPRESSIN 20 UNIT IV SCH ×4 (03:44→18:52)
[2016-05-10 05:12] LABS: Anisocytosis Marked; Basophils % (A) 0 %; CH 25.7; CHCM 28.7; Eosinophils % (A) 0 %; HCT 26.2 % (39.0-53.0); HDW 4.42; Hypochromasia Marked; Luc # (Auto) 0.14; Luc % (Auto) 1; Lymphocytes # (A) 0.4 k/uL (1.0-4.8); Lymphocytes % (A) 3 %; MCH 27.3 pg (25.0-35.0); MCHC 30.5 g/dL (31.0-37.0); MCV 89.3 fL (80.0-100.0); Macrocytosis Slight; Mean Platelet Volume 8.6; Microcytosis Slight; Monocytes # (A) 0.4 k/uL (0-1.0); Monocytes % (A) 4 %; Neutrophils % (A) 92 %; Poikilocytosis Moderate; RBC 2.93 m/uL (4.30-5.90); RDW 24.3 % (11.5-15.5); WBC (Perox) 12.01
[2016-05-10 05:46] LABS: Calcium 8.2 mg/dL (8.4-10.2); Potassium 4.4 mmol/L (3.5-5.1)
[2016-05-10 06:07] LABS: Glucose,Whole Blood 192 mg/dL (75-99)
[2016-05-10] MEDS: BUDESONIDE 0.5 MG/2 ML NEBU INHALATION SCH ×2 (08:13→20:56)
[2016-05-10] MEDS: AMIODARONE 200 MG TAB PO SCH ×2 (09:27→21:11)
[2016-05-10] MEDS: PANTOPRAZOLE 40 MG TABLET PO SCH (09:28)
[2016-05-10] MEDS ORDERED: FUROSEMIDE 10 MG/ML 4 ML VIAL IV STA (10:38)
--- NOTE | 2016-05-10 10:38 | P.PN ---
Subjective Patient is seen in follow-up for acute kidney injury on chronic kidney disease. Patient has chronic kidney disease stage IV secondary to solitary right kidney and cardiorenal syndrome with baseline creatinine in the range of 2.5-3. Creatinine was 3.3 on admission and is down to 2.67. He is currently off all vasopressors as well as IV fluids. His urine output is stable at about 50-60 mL an hour. Patient is awake and alert. He denies any chest pain or shortness of breath. Denies vomiting or diarrhea. Did have breakfast this morning. Vital signs are stable. General: The patient appeared well nourished and normally developed. HEENT: Head exam is unremarkable. Neck is without jugular venous distension. LUNGS: Rhonchi at bases. Breath sounds decreased. HEART: Rate and Rhythm are regular. First and second heart sounds normal. No murmurs, rubs or gallops. ABDOMEN: Abdominal exam reveals normal bowel sounds. Non-tender and non- distended. No evidence of peritonitis. EXTREMITITES: 1+ edema. Chronic venous stasis changes. Objective - Vital Signs Vital signs: Vital Signs Temp 97.4 F L 05/10/16 08:00 Pulse 77 05/10/16 10:00 Resp 24 05/10/16 10:00 BP 100/47 05/08/16 19:00 Pulse Ox 95 05/10/16 10:00 Intake & Output 05/09/16 05/10/16 05/10/16 18:59 06:59 18:59 Intake Total 0015.147 9491.295 245 Output Total 1595 705 228 Balance -240.189 817.295 17 Weight 169 kg Intake: IV 939 981 225 NS 6 Sodium Chloride 0.9% 1, 825 900 225 000 ml @ 75 mls/hr IV . [id number] [facility] Rx#:[id number] Sodium Chloride 0.9% 99 108 81 ml @ 0.03 UNITS/MIN 9 mls /hr IV .Q11H7M [facility] with Vasopressin 20 unit Rx#: [id number] Intake, IV Titration 105.811 541.295 20 Amount Norepinephrine 16 mg In 105.811 40.295 Sodium Chloride 0.9% 250 ml @ Titrate IV .Q0M [facility] Rx#:[id number] Sodium Chloride 0.9% 1, 20 000 ml @ 75 mls/hr IV . [id number] [facility] Rx#:[id number] Vancomycin 2,500 mg In 501 Sodium Chloride 0.9% 500 ml @ 167 mls/hr IVPB Q24H [facility] Rx#:[id number] Blood Product 310 Rc As-3 Unit 310 [id number] Output: Urine 1595 705 228 Other: Voiding Method Indwelling Catheter Indwelling Catheter Indwelling Catheter ABP, PAP, CO, CI - Last Documented Arterial Blood Pressure 117/52 - Labs CBC & Chem 7: 05/10/16 05:00 05/10/16 05:00 Labs: Abnormal Lab Results - Last 24 Hours (Table) 05/09/16 05/09/16 05/09/16 Range/Units 12:04 17:56 19:05 WBC 17.0 H (3.8-10.6) k/uL RBC 3.11 L (4.30-5.90) m/uL Hgb 8.2 L (13.0-17.5) gm/dL Hct 28.0 L (39.0-53.0) % MCHC 29.3 L (31.0-37.0) g/dL RDW 23.9 H (11.5-15.5) % Neutrophils # (1.3-7.7) k/uL Lymphocytes # (1.0-4.8) k/uL BUN (9-20) mg/dL Creatinine (0.66-1.25) mg/dL Glucose (74-99) mg/dL POC Glucose (mg/dL) 186 H 198 H (75-99) mg/dL Calcium (8.4-10.2) mg/dL 05/10/16 05/10/16 05/10/16 Range/Units 00:47 05:00 05:00 WBC 12.0 H (3.8-10.6) k/uL RBC 2.93 L (4.30-5.90) m/uL Hgb 8.0 L (13.0-17.5) gm/dL Hct 26.2 L (39.0-53.0) % MCHC 30.5 L (31.0-37.0) g/dL RDW 24.3 H (11.5-15.5) % Neutrophils # 11.0 H (1.3-7.7) k/uL Lymphocytes # 0.4 L (1.0-4.8) k/uL BUN 107 H* (9-20) mg/dL Creatinine 2.67 H (0.66-1.25) mg/dL Glucose 181 H (74-99) mg/dL POC Glucose (mg/dL) 207 H (75-99) mg/dL Calcium 8.2 L (8.4-10.2) mg/dL 05/10/16 Range/Units 06:06 WBC (3.8-10.6) k/uL RBC (4.30-5.90) m/uL Hgb (13.0-17.5) gm/dL Hct (39.0-53.0) % MCHC (31.0-37.0) g/dL RDW (11.5-15.5) % Neutrophils # (1.3-7.7) k/uL Lymphocytes # (1.0-4.8) k/uL BUN (9-20) mg/dL Creatinine (0.66-1.25) mg/dL Glucose (74-99) mg/dL POC Glucose (mg/dL) 192 H (75-99) mg/dL Calcium (8.4-10.2) mg/dL Microbiology - Last 24 Hours (Table) 05/09/16 05:50 Genital Culture - Preliminary Penis Assessment and Plan Plan: Assessment: #1. Nonoliguric acute kidney injury secondary to ischemic ATN secondary to hypotension. Creatinine improved to 2.67 today. #2. Chronic kidney disease stage IV secondary to solitary right kidney and multiple acute kidney injuries. Baseline creatinine 2 but recently has been in the range of 2.5-3. #3. Systolic CHF with ejection fraction of 30-35%. #4. Anemia. Iron replete. Hemoglobin stable. #5. Hypotension. Improved. #6. Elevated BUN related to acute kidney injury. He is currently not on any steroids. Stool for occult blood noted to be positive. Plan: Lasix 40 mg IV once today. Wean vasopressors as blood pressure tolerates. Maintain Aranesp. Encourage oral intake. Maintain Salinas catheter with strict I's and O's. Repeat electrolytes in the morning. Follow-up cultures. Antibiotics per infectious disease recommendations. Monitor vancomycin levels. No need for renal replacement therapy at this time. Will continue to assess on a day-to-day basis.
--- NOTE | 2016-05-10 11:44 | P.PN ---
Subjective Principal diagnosis: Septic shock Patient seen and examined in the ICU with nursing staff at bedside. Patient has been off of pressors since yesterday. He is much more alert and conversational today. He denies any fevers or chills, shortness of breath, chest pain. He states he is feeling fine. Objective - Vital Signs Vital signs: Vital Signs Temp 97.4 F L 05/10/16 08:00 Pulse 88 05/10/16 11:24 Resp 24 05/10/16 11:00 BP 100/47 05/08/16 19:00 Pulse Ox 98 05/10/16 11:00 Intake & Output 05/09/16 05/10/16 05/10/16 18:59 06:59 18:59 Intake Total 6797.310 0446.295 765 Output Total 1595 705 268 Balance -240.189 817.295 497 Weight 169 kg Intake: IV 939 981 225 NS 6 Sodium Chloride 0.9% 1, 825 900 225 000 ml @ 75 mls/hr IV . [id number] [facility] Rx#:[id number] Sodium Chloride 0.9% 99 108 81 ml @ 0.03 UNITS/MIN 9 mls /hr IV .Q11H7M [facility] with Vasopressin 20 unit Rx#: [id number] Intake, IV Titration 105.811 541.295 40 Amount Norepinephrine 16 mg In 105.811 40.295 Sodium Chloride 0.9% 250 ml @ Titrate IV .Q0M [facility] Rx#:[id number] Sodium Chloride 0.9% 1, 40 000 ml @ 75 mls/hr IV . [id number] [facility] Rx#:[id number] Vancomycin 2,500 mg In 501 Sodium Chloride 0.9% 500 ml @ 167 mls/hr IVPB Q24H [facility] Rx#:[id number] Oral 500 Blood Product 310 Rc As-3 Unit 310 [id number] Output: Urine 1595 705 268 Other: Voiding Method Indwelling Catheter Indwelling Catheter Indwelling Catheter ABP, PAP, CO, CI - Last Documented Arterial Blood Pressure 131/58 - Exam Gen: Alert and oriented 3, currently on nasal cannula CV: RRR, s1/s2 Lungs: coarse breath sounds bilaterally Abd: soft, NT/ND, +BS Ext: +2-3 pitting edema, chronic venous stasis - Labs CBC & Chem 7: 05/10/16 05:00 05/10/16 05:00 Labs: Abnormal Lab Results - Last 24 Hours (Table) 05/09/16 05/09/16 05/09/16 Range/Units 12:04 17:56 19:05 WBC 17.0 H (3.8-10.6) k/uL RBC 3.11 L (4.30-5.90) m/uL Hgb 8.2 L (13.0-17.5) gm/dL Hct 28.0 L (39.0-53.0) % MCHC 29.3 L (31.0-37.0) g/dL RDW 23.9 H (11.5-15.5) % Neutrophils # (1.3-7.7) k/uL Lymphocytes # (1.0-4.8) k/uL BUN (9-20) mg/dL Creatinine (0.66-1.25) mg/dL Glucose (74-99) mg/dL POC Glucose (mg/dL) 186 H 198 H (75-99) mg/dL Calcium (8.4-10.2) mg/dL 05/10/16 05/10/16 05/10/16 Range/Units 00:47 05:00 05:00 WBC 12.0 H (3.8-10.6) k/uL RBC 2.93 L (4.30-5.90) m/uL Hgb 8.0 L (13.0-17.5) gm/dL Hct 26.2 L (39.0-53.0) % MCHC 30.5 L (31.0-37.0) g/dL RDW 24.3 H (11.5-15.5) % Neutrophils # 11.0 H (1.3-7.7) k/uL Lymphocytes # 0.4 L (1.0-4.8) k/uL BUN 107 H* (9-20) mg/dL Creatinine 2.67 H (0.66-1.25) mg/dL Glucose 181 H (74-99) mg/dL POC Glucose (mg/dL) 207 H (75-99) mg/dL Calcium 8.2 L (8.4-10.2) mg/dL 05/10/16 Range/Units 06:06 WBC (3.8-10.6) k/uL RBC (4.30-5.90) m/uL Hgb (13.0-17.5) gm/dL Hct (39.0-53.0) % MCHC (31.0-37.0) g/dL RDW (11.5-15.5) % Neutrophils # (1.3-7.7) k/uL Lymphocytes # (1.0-4.8) k/uL BUN (9-20) mg/dL Creatinine (0.66-1.25) mg/dL Glucose (74-99) mg/dL POC Glucose (mg/dL) 192 H (75-99) mg/dL Calcium (8.4-10.2) mg/dL Microbiology - Last 24 Hours (Table) 05/09/16 05:50 Genital Culture - Preliminary Penis Assessment and Plan Plan: Acute on chronic hypoxic respiratory failure HCAP Acute on chronic renal failure, CKD 4 Septic shock Afib with CVR UTI POA, awaiting cultures Systolic CHF, EF 35-40% Mild to moderate pulmonary hypertension, RVSP 46 mmHg Recent C diff colitis Bicytopenia NSTEMI Coumadin coagulopathy POA, now resolved Hyponatremia Hx strep pyogenes bacteremia AECOPD GUICHO/OHS, on bipap Hx tobacco abuse DM2 PCM Morbid obesity Continue Bipap support, wean FiO2 for sat > or = 88% ABX: Continue Cefepime and Vanco per ID Continue subcu heparin, repeat INR, will add heparin drip if subtherapeutic Blood, urine, sputum cultures pending Nephro and cardio consulted Pressors have been weaned off 0.9NS @ 75 cc/hr for now Rate control with amio, hold carvedilol due to hypotension Protonix for GI prophylaxis Continue Duonebs and Pulmicort All other home meds on hold for now Continue SoluCortef Monitor Hgb Measure CVP Lasix 40 mg x 1 now per nephro Will check left chest ultrasound for possible effusion. Continue to monitor in the ICU today
--- NOTE | 2016-05-10 12:32 | XR ---
EXAMINATION TYPE: XR chest 1V portable DATE OF EXAM: 05/10/2016 6:57 AM HISTORY: Shortness of breath. COMPARISON: 05/09/2016 TECHNIQUE: Single view of the chest is submitted. FINDINGS: Right IJ central venous line unchanged in position. There is continued cardiomegaly with patchy perihilar and basilar infiltrates left much greater than right. Overall there is improving aeration left upper lobe. Findings may reflect underlying congestiv e failure with superimposed pneumonia. Correlate clinically and progress studies are advised. Hilar and mediastinal structures are within normal limits. Degenerative changes are seen of the dorsal spine. IMPRESSION: 1. There is continued cardiomegaly with patchy perihilar and basilar infiltrates left much greater t chavira right. Overall there is improving aeration left upper lobe. Findings may reflect underlying conge stive failure with superimposed pneumonia. Correlate clinically and progress studies are advised.
[2016-05-10 15:51] LABS: Glucose,Whole Blood 264 mg/dL (75-99)
--- NOTE | 2016-05-10 16:02 | US ---
EXAMINATION TYPE: US chest DATE OF EXAM: 05/10/2016 11:43 AM COMPARISON: NONE CLINICAL HISTORY: left pleural effusion. EXAM MEASUREMENTS: Scanned left posterior chest in ICU on patient who is unable to sit up on his own. There was limited time to assess for fluid, no appreciable fluid pocket seen. Pulmonologists are able to review the images in the patient?s EMR. IMPRESSIONS: NO SIGNIFICANT PLEURAL FLUID DEMONSTRATED.
[2016-05-10 16:17] LABS: INR 3.2 (<1.1)
--- NOTE | 2016-05-10 16:22 | P.PN ---
Subjective Principal diagnosis: Septic shock Patient is a 56-year-old male with complex medical history significant for recent C. diff and streptococcal agalactiae bacteremia secondary to cellulitis. Patient presenting to the emergency department from an ECF after being found unresponsive. Patient was found to have evidence of acute on chronic kidney injury and septic shock with possible concern for pneumonia and urinary tract infection. Patient was was admitted to the intensive care unit for further treatment. Patient is being followed by multiple consultants including Dr. Chinchilla from infectious disease service, Dr. Knox for ICU management and pulmonary service, and Dr. Lorenzo from nephrology service. Patient is evaluated in the intensive care unit where he is currently off vasopressors. Patient denies chills, fevers, nausea, vomiting, increased shortness of breath, chest pain, or abdominal pain. Patient is tolerating a regular diet. Urine output adequate. Last bowel movement 2 days ago. Chest x- ray from this morning suggest underlying congestive heart failure with superimposed pneumonia with improved aeration to the left upper lobe. Final urine culture with evidence of Yi glabrata. Preliminary blood culture no growth after 48 hours. Patient has had improvement and kidney function and decreased leukocytosis. Objective - Vital Signs Vital signs: Vital Signs Temp 98 F 05/10/16 12:00 Pulse 81 05/10/16 15:00 Resp 19 05/10/16 15:00 BP 100/47 05/08/16 19:00 Pulse Ox 96 05/10/16 15:00 Intake & Output 05/09/16 05/10/16 05/10/16 18:59 06:59 18:59 Intake Total 8819.308 5391.295 845 Output Total 1595 705 523 Balance -240.189 817.295 322 Weight 169 kg Intake: IV 939 981 225 NS 6 Sodium Chloride 0.9% 1, 825 900 225 000 ml @ 75 mls/hr IV . [id number] [facility] Rx#:[id number] Sodium Chloride 0.9% 99 108 81 ml @ 0.03 UNITS/MIN 9 mls /hr IV .Q11H7M [facility] with Vasopressin 20 unit Rx#: [id number] Intake, IV Titration 105.811 541.295 120 Amount Norepinephrine 16 mg In 105.811 40.295 Sodium Chloride 0.9% 250 ml @ Titrate IV .Q0M [facility] Rx#:[id number] Sodium Chloride 0.9% 1, 120 000 ml @ 75 mls/hr IV . [id number] [facility] Rx#:[id number] Vancomycin 2,500 mg In 501 Sodium Chloride 0.9% 500 ml @ 167 mls/hr IVPB Q24H [facility] Rx#:[id number] Oral 500 Blood Product 310 Rc As-3 Unit 310 [id number] Output: Urine 1595 705 523 Other: Voiding Method Indwelling Catheter Indwelling Catheter Indwelling Catheter ABP, PAP, CO, CI - Last Documented Arterial Blood Pressure 135/64 - Exam GENERAL: Pt awake and alert, well-appearing, well-nourished, and in no acute distress. HEAD: Atraumatic, normocephalic. EYES: Pupils equal, round, and reactive to light, extraocular movements intact, sclera anicteric, conjunctiva are normal. ENT: Moist mucous membranes. NECK:Supple without lymphadenopathy or JVD. LUNGS: Breath sounds coarse to auscultation bilaterally. No wheezes, rales, or rhonchi. HEART: Heart S1, S2, no S3 or S4. Irregularly irregular.. No murmurs, rubs or gallops. ABDOMEN: Soft, obese, nontender, nondistended, normoactive bowel sounds. No guarding, no rebound. No masses or organomegaly appreciated. EXTREMITIES: Palpable peripheral pulses. +2 pitting edema to bilateral lower extremities with chronic venous stasis. No calf tenderness. NEUROLOGICAL: Pt oriented x 3. No focal deficits noted. Patient is noted to have tremors of his upper extremities, bilateral. PSYCH: Normal mood, normal affect. SKIN: Warm, dry. Patient does have some skin sloughing to his bilateral buttocks. - Labs CBC & Chem 7: 05/10/16 05:00 05/10/16 05:00 Labs: Abnormal Lab Results - Last 24 Hours (Table) 05/09/16 05/09/16 05/10/16 Range/Units 17:56 19:05 00:47 WBC 17.0 H (3.8-10.6) k/uL RBC 3.11 L (4.30-5.90) m/uL Hgb 8.2 L (13.0-17.5) gm/dL Hct 28.0 L (39.0-53.0) % MCHC 29.3 L (31.0-37.0) g/dL RDW 23.9 H (11.5-15.5) % Neutrophils # (1.3-7.7) k/uL Lymphocytes # (1.0-4.8) k/uL BUN (9-20) mg/dL Creatinine (0.66-1.25) mg/dL Glucose (74-99) mg/dL POC Glucose (mg/dL) 198 H 207 H (75-99) mg/dL Calcium (8.4-10.2) mg/dL 05/10/16 05/10/16 05/10/16 Range/Units 05:00 05:00 06:06 WBC 12.0 H (3.8-10.6) k/uL RBC 2.93 L (4.30-5.90) m/uL Hgb 8.0 L (13.0-17.5) gm/dL Hct 26.2 L (39.0-53.0) % MCHC 30.5 L (31.0-37.0) g/dL RDW 24.3 H (11.5-15.5) % Neutrophils # 11.0 H (1.3-7.7) k/uL Lymphocytes # 0.4 L (1.0-4.8) k/uL BUN 107 H* (9-20) mg/dL Creatinine 2.67 H (0.66-1.25) mg/dL Glucose 181 H (74-99) mg/dL POC Glucose (mg/dL) 192 H (75-99) mg/dL Calcium 8.2 L (8.4-10.2) mg/dL Microbiology - Last 24 Hours (Table) 05/08/16 02:10 Urine Culture - Final Urine,Catheterized Yi glabrata 05/09/16 05:50 Genital Culture - Preliminary Penis Assessment and Plan Plan: Impression: 1. Septic shock suspect secondary to pneumonia, healthcare acquired and possible urinary tract infection. Urine culture positive for Yi glabrata. 2. Acute on chronic hypoxic respiratory failure. 3. Acute on chronic renal failure, stage IV secondary to ischemic ATN secondary to hypotension. 4. Acute on chronic systolic congestive heart failure with EF 35-40%. 5. Mild to moderate pulmonary hypertension. 6. History of recent C. diff colitis. 7. Non-STEMI. 8. History of strep hierarchies bacteremia. 9. Anemia, iron deficiency. Hemoglobin stable. 10. Elevated BUN related to acute kidney injury, also stool for occult blood noted to be positive. 11. Type 2 diabetes mellitus, insulin requiring. 12. History of gout. 13. Chronic atrial fibrillation. 14. Osteoarthritis, multiple joints. 15. History of rheumatoid arthritis. 16. Obstructive sleep apnea on BiPAP machine. 17. Depression, stable. 18. History of nicotine dependence. 19. Morbid obesity, BMI 47.8. 20. Decubitus ulcer to bilateral buttocks, unstageable. Plan: Continue to monitor patient. Continue current medications. Continue local wound care. We'll add Lantus 20 units at bedtime. Continue to follow with consultants. Repeat CBC, BMP, PT/INR in a.m. The above impression and plan have been discussed and directed by Dr. Seth. Steffany ORTIZ acting as scribe for Dr. Seth.
[2016-05-10] MEDS: CEFEPIME 2 GM in SODIUM CHLORIDE 0.9% 50 ML IVPB SCH (17:09)
[2016-05-10 17:21] LABS: Glucose,Whole Blood 257 mg/dL (75-99)
[2016-05-10] MEDS: SODIUM CHLORIDE 0.9% 1,000 ML IV SCH (21:11)
[2016-05-10] MEDS: INSULIN GLARGINE 100 UNIT/ML 10 ML VIAL SQ SCH (21:19)
--- NOTE | 2016-05-10 21:52 | PN ---
DATE OF SERVICE: 05/10/2016 REASON FOR FOLLOWUP: 1. Sepsis and pneumonia and a question of UTI. 2. Sacral and left thigh wound. INTERVAL HISTORY: The patient is afebrile, has been breathing comfortably. The patient denies significant chest pain or shortness of breath. Occasional cough. No abdominal pain and no diarrhea. Patient noticed to have deep tissue injury to the sacral area with a bleeding ulcer, some wounds on his left thigh area. On examination, blood pressure is 135/64 with a pulse of 81, temperature 98. He is 96% on 2 L nasal cannula. General description is a middle-aged male lying in bed in no distress. RESPIRATORY SYSTEM: Unlabored breathing. Clear to auscultation anteriorly. HEART: S1, S2. Regular rate and rhythm. ABDOMEN: Soft. No tenderness. EXAMINATION OF SACRAL AREA: Stage III pressure ulcer with some bleeding tissue from deep tissue injury. LEFT THIGH: Wounds with no cellulitis. LABS: Hemoglobin 8 with a white count of 12 with a BUN of 107. Creatinine is 2.67. DIAGNOSTIC IMPRESSION AND PLAN: 1. Patient admitted to hospital with sepsis. The source is likely combination of a pneumonia and urinary tract infection. Urine now showing Yi glabrata. Micafungin will be added. We will continue the patient on cefepime to cover for possible Gram-negative as no MRSA has been grown will discontinue the vancomycin. 2. As far as the local wound care to the sacral wound, will apply Aquacel Silver dressing. Keep the area off pressure. 3. Left thigh wound. Continue with Aquacel Silver dressing. [facility]
[2016-05-10] MEDS: VANCOMYCIN 2,500 MG in SODIUM CHLORIDE 0.9% 500 ML IVPB SCH (22:24)
[2016-05-10 23:38] LABS: Glucose,Whole Blood 233 mg/dL (75-99)
[2016-05-11] MEDS: IPRATROPIUM-ALBUTEROL 3 ML NEB INHALATION SCH ×6 (03:57→23:55)
[2016-05-11 05:14] LABS: Glucose,Whole Blood 226 mg/dL (75-99)
[2016-05-11] MEDS: SODIUM CHLORIDE 0.9% 1,000 ML IV SCH ×2 (05:15→18:47)
[2016-05-11] MEDS: INSULIN LISPRO (humaLOG) 300 UNIT/3 ML VIAL SQ SCH ×4 (05:15→23:31)
[2016-05-11 05:32] LABS: Prothrombin Time 38.9 sec (9.0-12.0)
[2016-05-11 05:49] LABS: Calcium 8.4 mg/dL (8.4-10.2); Phosphorous 4.8 mg/dL (2.5-4.5); Potassium 4.6 mmol/L (3.5-5.1)
[2016-05-11 05:52] LABS: Anisocytosis Marked; CH 25.7; CHCM 28.5; HCT 24.7 % (39.0-53.0); HDW 4.16; HGB 7.2 gm/dL (13.0-17.5); Hypochromasia Marked; MCH 26.3 pg (25.0-35.0); MCHC 29.2 g/dL (31.0-37.0); Macrocytosis Slight; Mean Platelet Volume 7.5; Microcytosis Slight; Poikilocytosis Moderate; RBC 2.75 m/uL (4.30-5.90); RDW 24.8 % (11.5-15.5); WBC (Perox) 10.99
[2016-05-11] MEDS: SODIUM CHLORIDE 0.9% 99 ML with VASOPRESSIN 20 UNIT IV SCH ×2 (06:11)
[2016-05-11 06:23] LABS: Add Differential Manual Differential
[2016-05-11 06:29] LABS: Metamyelocytes % 0.5 %; Nucleated Red Blood Cells 4 /100 WBC (0-0); Total Cells Counted 200
[2016-05-11 06:30] LABS: Manual Review Performed; WBC 10.2 k/uL (3.8-10.6)
[2016-05-11 06:31] LABS: Polychromasia Present
[2016-05-11] MEDS: BUDESONIDE 0.5 MG/2 ML NEBU INHALATION SCH ×2 (07:40→19:22)
--- NOTE | 2016-05-11 08:08 | XR ---
EXAMINATION TYPE: XR chest 1V portable DATE OF EXAM: 05/11/2016 6:11 AM HISTORY: Shortness of breath. REFERENCE: Previous study dated 05/10/2016. FINDINGS: The heart is markedly enlarged. There is vascular congestion and pulmonary edema. There is some improved aeration at the left lung base. Confluent opacity persists at the lung bases greater on the left than the right. IMPRESSION: 1. CARDIOMEGALY. 2. CHANGES OF HEART FAILURE. 3. BIBASILAR AIRSPACE DISEASE, MUCH GREATER ON THE LEFT THAN THE RIGHT.
[2016-05-11] MEDS: HYDROCORTISONE SUCCINATE 100 MG/2 ML VIAL IV SCH ×3 (08:21→23:31)
[2016-05-11] MEDS: AMIODARONE 200 MG TAB PO SCH ×2 (08:21→20:23)
[2016-05-11] MEDS: PANTOPRAZOLE 40 MG TABLET PO SCH (08:21)
[2016-05-11] MEDS: HEPARIN SODIUM,PORCINE 5,000 UNIT/ML 1 ML VIAL SQ SCH ×2 (08:22→15:21)
--- NOTE | 2016-05-11 09:50 | P.PN ---
Subjective Patient is seen in follow-up for acute kidney injury on chronic kidney disease. Patient has chronic kidney disease stage IV secondary to solitary right kidney and cardiorenal syndrome with baseline creatinine in the range of 2.5-3. Creatinine was 3.3 on admission and is down to 2.37. He is currently off all vasopressors as well as IV fluids. His urine output is stable at about 70 mL an hour. Patient is awake and alert. He denies any chest pain or shortness of breath. Denies vomiting or diarrhea. Did have breakfast this morning. Vital signs are stable. General: The patient appeared well nourished and normally developed. HEENT: Head exam is unremarkable. Neck is without jugular venous distension. LUNGS: Rhonchi at bases. Breath sounds decreased. HEART: Rate and Rhythm are regular. First and second heart sounds normal. No murmurs, rubs or gallops. ABDOMEN: Abdominal exam reveals normal bowel sounds. Non-tender and non- distended. No evidence of peritonitis. EXTREMITITES: 1+ edema. Chronic venous stasis changes. Objective - Vital Signs Vital signs: Vital Signs Temp 97.3 F L 05/11/16 08:00 Pulse 93 05/11/16 09:00 Resp 28 H 05/11/16 09:00 BP 100/47 05/08/16 19:00 Pulse Ox 95 05/11/16 09:00 Intake & Output 05/10/16 05/11/16 05/11/16 18:59 06:59 18:59 Intake Total 1405 960 60 Output Total 743 590 220 Balance 662 370 -160 Weight 182 kg Intake: IV 225 Sodium Chloride 0.9% 1, 225 000 ml @ 20 mls/hr IV . Q24H [facility] Rx#:[id number] Intake, IV Titration 180 720 60 Amount Sodium Chloride 0.9% 1, 180 220 60 000 ml @ 20 mls/hr IV . Q24H [facility] Rx#:[id number] Vancomycin 2,500 mg In 500 Sodium Chloride 0.9% 500 ml @ 167 mls/hr IVPB Q24H [facility] Rx#:[id number] Oral 1000 240 Output: Urine 743 590 220 Other: Voiding Method Indwelling Catheter Indwelling Catheter Indwelling Catheter ABP, PAP, CO, CI - Last Documented Arterial Blood Pressure 111/48 - Labs CBC & Chem 7: 05/11/16 05:10 05/11/16 05:10 Labs: Abnormal Lab Results - Last 24 Hours (Table) 05/10/16 05/10/16 05/10/16 Range/Units 12:40 15:34 17:20 RBC (4.30-5.90) m/uL Hgb (13.0-17.5) gm/dL Hct (39.0-53.0) % MCHC (31.0-37.0) g/dL RDW (11.5-15.5) % Plt Count (150-450) k/uL Neutrophils # (Manual) (1.3-7.7) k/uL Lymphocytes # (Manual) (1.0-4.8) k/uL Nucleated RBCs (0-0) /100 WBC PT 31.0 H (9.0-12.0) sec Sodium (137-145) mmol/L BUN (9-20) mg/dL Creatinine (0.66-1.25) mg/dL Glucose (74-99) mg/dL POC Glucose (mg/dL) 264 H 257 H (75-99) mg/dL Phosphorus (2.5-4.5) mg/dL 05/10/16 05/11/16 05/11/16 Range/Units 23:35 05:10 05:10 RBC 2.75 L (4.30-5.90) m/uL Hgb 7.2 L (13.0-17.5) gm/dL Hct 24.7 L (39.0-53.0) % MCHC 29.2 L (31.0-37.0) g/dL RDW 24.8 H (11.5-15.5) % Plt Count 129 L (150-450) k/uL Neutrophils # (Manual) 9.8 H (1.3-7.7) k/uL Lymphocytes # (Manual) 0.3 L (1.0-4.8) k/uL Nucleated RBCs 4 H (0-0) /100 WBC PT (9.0-12.0) sec Sodium 135 L (137-145) mmol/L BUN 105 H* (9-20) mg/dL Creatinine 2.37 H (0.66-1.25) mg/dL Glucose 197 H (74-99) mg/dL POC Glucose (mg/dL) 233 H (75-99) mg/dL Phosphorus 4.8 H (2.5-4.5) mg/dL 05/11/16 05/11/16 Range/Units 05:10 05:11 RBC (4.30-5.90) m/uL Hgb (13.0-17.5) gm/dL Hct (39.0-53.0) % MCHC (31.0-37.0) g/dL RDW (11.5-15.5) % Plt Count (150-450) k/uL Neutrophils # (Manual) (1.3-7.7) k/uL Lymphocytes # (Manual) (1.0-4.8) k/uL Nucleated RBCs (0-0) /100 WBC PT 38.9 H (9.0-12.0) sec Sodium (137-145) mmol/L BUN (9-20) mg/dL Creatinine (0.66-1.25) mg/dL Glucose (74-99) mg/dL POC Glucose (mg/dL) 226 H (75-99) mg/dL Phosphorus (2.5-4.5) mg/dL Microbiology - Last 24 Hours (Table) 05/08/16 02:10 Urine Culture - Final Urine,Catheterized Yi glabrata Assessment and Plan Plan: Assessment: #1. Nonoliguric acute kidney injury secondary to ischemic ATN secondary to hypotension. Creatinine improved to 2.37 today. #2. Chronic kidney disease stage IV secondary to solitary right kidney and multiple acute kidney injuries. Baseline creatinine 2 but recently has been in the range of 2.5-3. #3. Systolic CHF with ejection fraction of 30-35%. #4. Anemia. Iron replete. Hemoglobin down to 7.2. #5. Hypotension. Improved. #6. Elevated BUN related to acute kidney injury. He is currently not on any steroids. Stool for occult blood noted to be positive. #. Urinary tract infection with urine culture positive for Yi glabrata. Plan: Transfuse 1 unit of packed red blood cell today. Lasix 60 mg IV once today. Maintain Aranesp. Encourage oral intake. Maintain [place] catheter with strict I's and O's. Repeat electrolytes in the morning. Antibiotics per infectious disease recommendations. No need for renal replacement therapy at this time. Will continue to assess on a day-to-day basis.
[2016-05-11] MEDS ORDERED: FUROSEMIDE 10 MG/ML 10 ML VIAL IV STA (09:51)
[2016-05-11] MEDS: INSULIN GLARGINE 100 UNIT/ML 10 ML VIAL SQ SCH ×2 (10:30→20:23)
[2016-05-11] MEDS: MICAFUNGIN 100 MG in SODIUM CHLORIDE 0.9% 100 ML IVPB SCH (12:09)
[2016-05-11] MEDS: CEFEPIME 2 GM in SODIUM CHLORIDE 0.9% 50 ML IVPB SCH ×2 (12:10→23:30)
[2016-05-11 12:19] LABS: Glucose,Whole Blood 248 mg/dL (75-99)
--- NOTE | 2016-05-11 14:33 | P.PN ---
Subjective Principal diagnosis: Septic shock Patient is a 56-year-old male with complex medical history significant for recent C. diff and streptococcal agalactiae bacteremia secondary to cellulitis. Patient presenting to the emergency department from an ECF after being found unresponsive. Patient was found to have evidence of acute on chronic kidney injury and septic shock with possible concern for pneumonia and urinary tract infection. Patient was admitted to the intensive care unit for further treatment. Patient is being followed by multiple consultants including Dr. Chinchilla from infectious disease service, Dr. Knox for ICU management and pulmonary service, and Dr. Lorenzo from nephrology service. Patient is evaluated in the intensive care unit. Patient is feeling well. Denies chills, fevers, nausea, vomiting, increased shortness of breath, chest pain, or abdominal pain. Patient is tolerating a regular diet. Urine output adequate. Last bowel movement 3 days ago. Chest x-ray from this morning with evidence of cardiomegaly, vascular congestion and pulmonary edema, bibasilar aspirated disease much greater left than on right. Hemoglobin 7.2. INR 4. Preliminary blood culture no growth after 72 hours. Creatinine decreased to 0.37. Objective - Vital Signs Vital signs: Vital Signs Temp 97.5 F L 05/11/16 12:45 Pulse 107 H 05/11/16 13:00 Resp 20 05/11/16 13:00 BP 132/56 05/11/16 12:45 Pulse Ox 95 05/11/16 13:00 Intake & Output 05/10/16 05/11/16 05/11/16 18:59 06:59 18:59 Intake Total 1405 960 290 Output Total 743 590 515 Balance 662 370 -225 Weight 182 kg Intake: IV 225 Sodium Chloride 0.9% 1, 225 000 ml @ 20 mls/hr IV . Q24H [facility] Rx#:[id number] Intake, IV Titration 180 720 290 Amount Cefepime 2 gm In Sodium 50 Chloride 0.9% 50 ml @ 100 mls/hr IVPB Q12H [facility] Rx# :[id number] Micafungin 100 mg In 100 Sodium Chloride 0.9% 100 ml @ 100 mls/hr IVPB DAILY@1200 [facility] Rx#: [id number] Sodium Chloride 0.9% 1, 180 220 140 000 ml @ 20 mls/hr IV . Q24H [facility] Rx#:[id number] Vancomycin 2,500 mg In 500 Sodium Chloride 0.9% 500 ml @ 167 mls/hr IVPB Q24H [facility] Rx#:[id number] Oral 1000 240 Blood Product 0 Rc As-1 Unit 0 [id number] Output: Urine 743 590 515 Other: Voiding Method Indwelling Catheter Indwelling Catheter Indwelling Catheter ABP, PAP, CO, CI - Last Documented Arterial Blood Pressure 126/56 - Exam GENERAL: Pt awake and alert, well-appearing, well-nourished, and in no acute distress. HEAD: Atraumatic, normocephalic. EYES: Pupils equal, round, and reactive to light, extraocular movements intact, sclera anicteric, conjunctiva are normal. ENT: Moist mucous membranes. NECK:Supple without lymphadenopathy or JVD. LUNGS: Breath sounds coarse to auscultation bilaterally. No wheezes, rales, or rhonchi. HEART: Heart S1, S2, no S3 or S4. Irregularly irregular.. No murmurs, rubs or gallops. ABDOMEN: Soft, obese, nontender, nondistended, normoactive bowel sounds. No guarding, no rebound. No masses or organomegaly appreciated. EXTREMITIES: Palpable peripheral pulses. +2 pitting edema to bilateral lower extremities with chronic venous stasis. No calf tenderness. NEUROLOGICAL: Pt oriented x 3. No focal deficits noted. Patient is noted to have tremors of his upper extremities, bilateral. PSYCH: Normal mood, normal affect. SKIN: Warm, dry. - Labs CBC & Chem 7: 05/11/16 05:10 05/11/16 05:10 Labs: Abnormal Lab Results - Last 24 Hours (Table) 05/10/16 05/10/16 05/10/16 Range/Units 12:40 15:34 17:20 RBC (4.30-5.90) m/uL Hgb (13.0-17.5) gm/dL Hct (39.0-53.0) % MCHC (31.0-37.0) g/dL RDW (11.5-15.5) % Plt Count (150-450) k/uL Neutrophils # (Manual) (1.3-7.7) k/uL Lymphocytes # (Manual) (1.0-4.8) k/uL Nucleated RBCs (0-0) /100 WBC PT 31.0 H (9.0-12.0) sec Sodium (137-145) mmol/L BUN (9-20) mg/dL Creatinine (0.66-1.25) mg/dL Glucose (74-99) mg/dL POC Glucose (mg/dL) 264 H 257 H (75-99) mg/dL Phosphorus (2.5-4.5) mg/dL Crossmatch 05/10/16 05/11/16 05/11/16 Range/Units 23:35 05:10 05:10 RBC 2.75 L (4.30-5.90) m/uL Hgb 7.2 L (13.0-17.5) gm/dL Hct 24.7 L (39.0-53.0) % MCHC 29.2 L (31.0-37.0) g/dL RDW 24.8 H (11.5-15.5) % Plt Count 129 L (150-450) k/uL Neutrophils # (Manual) 9.8 H (1.3-7.7) k/uL Lymphocytes # (Manual) 0.3 L (1.0-4.8) k/uL Nucleated RBCs 4 H (0-0) /100 WBC PT (9.0-12.0) sec Sodium 135 L (137-145) mmol/L BUN 105 H* (9-20) mg/dL Creatinine 2.37 H (0.66-1.25) mg/dL Glucose 197 H (74-99) mg/dL POC Glucose (mg/dL) 233 H (75-99) mg/dL Phosphorus 4.8 H (2.5-4.5) mg/dL Crossmatch 05/11/16 05/11/16 05/11/16 Range/Units 05:10 05:11 09:48 RBC (4.30-5.90) m/uL Hgb (13.0-17.5) gm/dL Hct (39.0-53.0) % MCHC (31.0-37.0) g/dL RDW (11.5-15.5) % Plt Count (150-450) k/uL Neutrophils # (Manual) (1.3-7.7) k/uL Lymphocytes # (Manual) (1.0-4.8) k/uL Nucleated RBCs (0-0) /100 WBC PT 38.9 H (9.0-12.0) sec Sodium (137-145) mmol/L BUN (9-20) mg/dL Creatinine (0.66-1.25) mg/dL Glucose (74-99) mg/dL POC Glucose (mg/dL) 226 H (75-99) mg/dL Phosphorus (2.5-4.5) mg/dL Crossmatch See Detail 05/11/16 Range/Units 12:17 RBC (4.30-5.90) m/uL Hgb (13.0-17.5) gm/dL Hct (39.0-53.0) % MCHC (31.0-37.0) g/dL RDW (11.5-15.5) % Plt Count (150-450) k/uL Neutrophils # (Manual) (1.3-7.7) k/uL Lymphocytes # (Manual) (1.0-4.8) k/uL Nucleated RBCs (0-0) /100 WBC PT (9.0-12.0) sec Sodium (137-145) mmol/L BUN (9-20) mg/dL Creatinine (0.66-1.25) mg/dL Glucose (74-99) mg/dL POC Glucose (mg/dL) 248 H (75-99) mg/dL Phosphorus (2.5-4.5) mg/dL Crossmatch Microbiology - Last 24 Hours (Table) 05/08/16 02:10 Urine Culture - Final Urine,Catheterized Yi glabrata Assessment and Plan Plan: Impression: 1. Septic shock suspect secondary to pneumonia, healthcare acquired and urinary tract infection. Urine culture positive for Yi glabrata. 2. Acute on chronic hypoxic respiratory failure. 3. Acute on chronic renal failure, stage IV secondary to ischemic ATN secondary to hypotension. 4. Acute on chronic systolic congestive heart failure with EF 35-40%. 5. Mild to moderate pulmonary hypertension. 6. History of recent C. diff colitis. 7. Non-STEMI. 8. History of strep agalactiae bacteremia. 9. Anemia, iron deficiency. Hemoglobin 7.2. 10. Elevated BUN related to acute kidney injury, also stool for occult blood noted to be positive. 11. Type 2 diabetes mellitus, insulin requiring, with hyperglycemia. 12. History of gout. 13. Chronic atrial fibrillation. 14. Osteoarthritis, multiple joints. 15. History of rheumatoid arthritis. 16. Obstructive sleep apnea on BiPAP machine. 17. Depression, stable. 18. History of nicotine dependence. 19. Morbid obesity, BMI 47.8. 20. Decubitus ulcer to bilateral buttocks, unstageable. Plan: Continue to monitor patient. Continue current medications. Will increase Lantus to 10 units in the morning and 20 units at bedtime. Patient is scheduled to receive 1 unit of PRBC for hemoglobin of 7.2 followed by Lasix 60 mg IV. Consult physical therapy for generalized weakness. Continue local wound care. Continue to follow with consultants. Repeat CBC, BMP, PT/INR in a.m. The above impression and plan have been discussed and directed by Dr. Seth. Steffany ORTIZ acting as scribe for Dr. Seth.
--- NOTE | 2016-05-11 14:58 | PN ---
Lam is a 56-year-old gentleman with complex and multiple medical problems including chronic atrial fibrillation, renal failure, diabetes, GERD, hypertension, who is admitted to hospital with renal failure and Cardiology has been involved in her care because of atrial fibrillation. Patient appears comfortable at rest. Denies any shortness of breath. On exam, he is in A. fib with controlled ventricular rate. Chest exam reveals diminished air entry at the bases. Heart exam reveals first and second heart sounds. No gallop. Exam of extremities reveals bilateral edema with chronic stasis changes. Labs show an INR of 4, potassium is 4.6, BUN is 105, creatinine is 2.3. ASSESSMENT: 1. Atrial fibrillation with controlled ventricular rate. 2. Coagulopathy. PLAN: Coumadin is still on hold. Patient is on amiodarone 200 b.i.d. which she will continue along with Coreg.
--- NOTE | 2016-05-11 15:28 | PN ---
DATE OF SERVICE: 05/11/2016 Reason for followup is: 1. Pneumonia. 2. UTI. 3. Sacral pressure ulcer. INTERVAL HISTORY: The patient is afebrile. Has been breathing comfortably. He is hemodynamically stable. Denies having any chest pain or shortness of breath or cough. No abdominal pain or any diarrhea. On examination, blood pressure is 124/50 with a pulse of 90, temperature 97.3. He is 94% on 3 L nasal cannula. General description is a middle-age male, lying in bed in no distress. RESPIRATORY SYSTEM: Unlabored breathing. Clear to auscultation. HEART: S1, S2. Regular rate and rhythm. ABDOMEN: Soft, no tenderness. EXTREMITIES: 2+ edema to the feet. LABS: Hemoglobin is 7.1, white count of 10.2 with a BUN of 105, creatinine is 2.37. Urine with Yi glabrata, blood culture has been negative. DIAGNOSTIC IMPRESSION AND PLAN: 1. Patient admitted to the hospital with sepsis, was multifactorial in this patient with possibility of pneumonia as well as urinary tract infection with urine showing yi glabrata. RN has been advised to repeat urine culture after change of [place]. Use of micafungin will be continued. Continue cephazolin for underlying pneumonia as though Gram-positive has been grown and to decrease risk of nephrotoxicity, vanco has been discontinued. 2. Patient with sacral pressure ulcer stage III. Continue Aquacel Silver dressing. Keep the area off the pressure and continue Aquacel Silver dressing to the left leg wound. MTDD
--- NOTE | 2016-05-11 16:09 | P.PN ---
Subjective Principal diagnosis: Septic shock Patient seen and examined. Patient states he is feeling fine. He has recently had a bowel movement. He has been wearing BiPAP nightly. He has remained off of pressors. He has been hemodynamically stable. Objective - Vital Signs Vital signs: Vital Signs Temp 97.6 F 05/11/16 15:10 Pulse 94 05/11/16 15:34 Resp 20 05/11/16 15:10 BP 126/59 05/11/16 15:10 Pulse Ox 98 05/11/16 15:10 Intake & Output 05/10/16 05/11/16 05/11/16 18:59 06:59 18:59 Intake Total 1405 960 600 Output Total 743 590 515 Balance 662 370 85 Weight 182 kg 182 kg Intake: IV 225 Sodium Chloride 0.9% 1, 225 000 ml @ 20 mls/hr IV . Q24H [facility] Rx#:[id number] Intake, IV Titration 180 720 290 Amount Cefepime 2 gm In Sodium 50 Chloride 0.9% 50 ml @ 100 mls/hr IVPB Q12H [facility] Rx# :[id number] Micafungin 100 mg In 100 Sodium Chloride 0.9% 100 ml @ 100 mls/hr IVPB DAILY@1200 [facility] Rx#: [id number] Sodium Chloride 0.9% 1, 180 220 140 000 ml @ 20 mls/hr IV . Q24H [facility] Rx#:[id number] Vancomycin 2,500 mg In 500 Sodium Chloride 0.9% 500 ml @ 167 mls/hr IVPB Q24H [facility] Rx#:[id number] Oral 1000 240 Blood Product 310 Rc As-1 Unit 310 [id number] Output: Urine 743 590 515 Other: Voiding Method Indwelling Catheter Indwelling Catheter Indwelling Catheter ABP, PAP, CO, CI - Last Documented Arterial Blood Pressure 109/52 - Exam Gen: Alert and oriented 3, currently on nasal cannula CV: RRR, s1/s2 Lungs: coarse breath sounds bilaterally Abd: soft, NT/ND, +BS Ext: +2-3 pitting edema, chronic venous stasis - Labs CBC & Chem 7: 05/11/16 05:10 05/11/16 05:10 Labs: Abnormal Lab Results - Last 24 Hours (Table) 05/10/16 05/10/16 05/10/16 Range/Units 12:40 17:20 23:35 RBC (4.30-5.90) m/uL Hgb (13.0-17.5) gm/dL Hct (39.0-53.0) % MCHC (31.0-37.0) g/dL RDW (11.5-15.5) % Plt Count (150-450) k/uL Neutrophils # (Manual) (1.3-7.7) k/uL Lymphocytes # (Manual) (1.0-4.8) k/uL Nucleated RBCs (0-0) /100 WBC PT 31.0 H (9.0-12.0) sec Sodium (137-145) mmol/L BUN (9-20) mg/dL Creatinine (0.66-1.25) mg/dL Glucose (74-99) mg/dL POC Glucose (mg/dL) 257 H 233 H (75-99) mg/dL Phosphorus (2.5-4.5) mg/dL Crossmatch 05/11/16 05/11/16 05/11/16 Range/Units 05:10 05:10 05:10 RBC 2.75 L (4.30-5.90) m/uL Hgb 7.2 L (13.0-17.5) gm/dL Hct 24.7 L (39.0-53.0) % MCHC 29.2 L (31.0-37.0) g/dL RDW 24.8 H (11.5-15.5) % Plt Count 129 L (150-450) k/uL Neutrophils # (Manual) 9.8 H (1.3-7.7) k/uL Lymphocytes # (Manual) 0.3 L (1.0-4.8) k/uL Nucleated RBCs 4 H (0-0) /100 WBC PT 38.9 H (9.0-12.0) sec Sodium 135 L (137-145) mmol/L BUN 105 H* (9-20) mg/dL Creatinine 2.37 H (0.66-1.25) mg/dL Glucose 197 H (74-99) mg/dL POC Glucose (mg/dL) (75-99) mg/dL Phosphorus 4.8 H (2.5-4.5) mg/dL Crossmatch 05/11/16 05/11/1605/11/17 Range/Units 05:11 09:48 12:17 RBC (4.30-5.90) m/uL Hgb (13.0-17.5) gm/dL Hct (39.0-53.0) % MCHC (31.0-37.0) g/dL RDW (11.5-15.5) % Plt Count (150-450) k/uL Neutrophils # (Manual) (1.3-7.7) k/uL Lymphocytes # (Manual) (1.0-4.8) k/uL Nucleated RBCs (0-0) /100 WBC PT (9.0-12.0) sec Sodium (137-145) mmol/L BUN (9-20) mg/dL Creatinine (0.66-1.25) mg/dL Glucose (74-99) mg/dL POC Glucose (mg/dL) 226 H 248 H (75-99) mg/dL Phosphorus (2.5-4.5) mg/dL Crossmatch See Detail Microbiology - Last 24 Hours (Table) 05/08/16 02:10 Urine Culture - Final Urine,Catheterized Yi glabrata Assessment and Plan Plan: Acute on chronic hypoxic respiratory failure HCAP Acute on chronic renal failure, CKD 4 Septic shock Afib with CVR UTI POA, Yi glabrata Systolic CHF, EF 35-40% Mild to moderate pulmonary hypertension, RVSP 46 mmHg Recent C diff colitis Bicytopenia NSTEMI Coumadin coagulopathy Hyponatremia Hx strep pyogenes bacteremia AECOPD GUICHO/OHS, on bipap Hx tobacco abuse DM2 PCM Morbid obesity Continue Bipap support, wean FiO2 for sat > or = 88% ABX: Continue Cefepime, Micafungin added per ID Continue subcu heparin, repeat INR, will add heparin drip if subtherapeutic Nephro and cardio recommendations Pressors have been weaned off 0.9NS @ 75 cc/hr for now Protonix for GI prophylaxis Continue Duonebs and Pulmicort All other home meds on hold for now Continue SoluCortef - will taper Monitor Hgb, transfuse 1 unit PRBC today Lasix 40 mg x 1 now per nephro Ultrasound of the chest reveals no evidence of pleural effusion. Okay to transfer out of the ICU today.
[2016-05-11 17:41] LABS: Glucose,Whole Blood 235 mg/dL (75-99)
[2016-05-11] MEDS: CARVEDILOL 3.125 MG TAB PO SCH (18:46)
[2016-05-11] MEDS ORDERED: VANCOMYCIN TROUGH DUE 1 EACH MISC MISCELLANE ONE (21:00)
[2016-05-11 23:22] LABS: Glucose,Whole Blood 238 mg/dL (75-99)
[2016-05-12] MEDS: IPRATROPIUM-ALBUTEROL 3 ML NEB INHALATION SCH ×5 (03:26→20:03)
[2016-05-12] MEDS: INSULIN LISPRO (humaLOG) 300 UNIT/3 ML VIAL SQ SCH ×3 (05:00→18:54)
[2016-05-12 05:01] LABS: Glucose,Whole Blood 210 mg/dL (75-99)
[2016-05-12 05:16] LABS: Anisocytosis Marked; CH 26.1; CHCM 29.2; HCT 27.2 % (39.0-53.0); HDW 4.35; HGB 8.2 gm/dL (13.0-17.5); Hypochromasia Marked; MCH 26.8 pg (25.0-35.0); MCV 89.3 fL (80.0-100.0); Macrocytosis Slight; Mean Platelet Volume 7.6; Microcytosis Slight; Poikilocytosis Moderate; RBC 3.04 m/uL (4.30-5.90); RDW 24.7 % (11.5-15.5); WBC (Perox) 12.47
[2016-05-12 05:19] LABS: INR 3.5 (<1.1)
[2016-05-12 05:39] LABS: Calcium 8.4 mg/dL (8.4-10.2); Magnesium 1.9 mg/dL (1.6-2.3); Phosphorous 4.1 mg/dL (2.5-4.5); Potassium 4.3 mmol/L (3.5-5.1)
[2016-05-12 05:51] LABS: Add Differential Manual Differential
[2016-05-12 05:54] LABS: Manual Review Performed; Nucleated Red Blood Cells 4 /100 WBC (0-0); Total Cells Counted 200
[2016-05-12 05:55] LABS: Polychromasia Present
[2016-05-12] MEDS: BUDESONIDE 0.5 MG/2 ML NEBU INHALATION SCH ×2 (07:34→20:03)
[2016-05-12] MEDS: CARVEDILOL 3.125 MG TAB PO SCH ×2 (08:02→18:55)
[2016-05-12 08:03] LABS: Glucose,Whole Blood 178 mg/dL (75-99)
[2016-05-12] MEDS: PANTOPRAZOLE 40 MG TABLET PO SCH (08:03)
[2016-05-12] MEDS: HYDROCORTISONE SUCCINATE 100 MG/2 ML VIAL IV SCH ×2 (08:03→15:47)
[2016-05-12] MEDS: AMIODARONE 200 MG TAB PO SCH ×2 (08:03→20:03)
[2016-05-12] MEDS ORDERED: FUROSEMIDE 10 MG/ML 10 ML VIAL IV STA (08:09)
[2016-05-12] MEDS: INSULIN GLARGINE 100 UNIT/ML 10 ML VIAL SQ SCH ×3 (08:10→21:54)
--- NOTE | 2016-05-12 08:50 | P.PN ---
Subjective Patient is seen in follow-up for acute kidney injury on chronic kidney disease. Patient has chronic kidney disease stage IV secondary to solitary right kidney and cardiorenal syndrome with baseline creatinine in the range of 2.5-3. Creatinine was 3.3 on admission and is 2.5 today. He is currently off all vasopressors as well as IV fluids. He remains nonoliguric. Patient is awake and alert. He denies any chest pain or shortness of breath. Denies vomiting or diarrhea. Did have breakfast this morning. Vital signs are stable. General: The patient appeared well nourished and normally developed. HEENT: Head exam is unremarkable. Neck is without jugular venous distension. LUNGS: Rhonchi at bases. Breath sounds decreased. HEART: Rate and Rhythm are regular. First and second heart sounds normal. No murmurs, rubs or gallops. ABDOMEN: Abdominal exam reveals normal bowel sounds. Non-tender and non- distended. No evidence of peritonitis. EXTREMITITES: 1+ edema. Chronic venous stasis changes. Objective - Vital Signs Vital signs: Vital Signs Temp 98.1 F 05/12/16 08:30 Pulse 111 H 05/12/16 08:30 Resp 33 H 05/12/16 08:30 BP 109/67 05/12/16 08:30 Pulse Ox 94 L 05/12/16 08:30 Intake & Output 05/11/16 05/12/16 05/12/16 18:59 06:59 18:59 Intake Total 620 470 0 Output Total 665 805 Balance -45 -335 0 Weight 182 kg 183.5 kg Intake: Intake, IV Titration 310 350 Amount Cefepime 2 gm In Sodium 50 50 Chloride 0.9% 50 ml @ 100 mls/hr IVPB Q12H [facility] Rx# :[id number] Micafungin 100 mg In 100 Sodium Chloride 0.9% 100 ml @ 100 mls/hr IVPB DAILY@1200 [facility] Rx#: [id number] Sodium Chloride 0.9% 1, 160 300 000 ml @ 20 mls/hr IV . Q24H [facility] Rx#:[id number] Oral 120 Blood Product 310 0 Rc As-1 Unit 310 [id number] Rc As-1 Unit 0 [id number] Output: Urine 665 805 Other: Voiding Method Indwelling Catheter Indwelling Catheter ABP, PAP, CO, CI - Last Documented Arterial Blood Pressure 114/58 - Labs CBC & Chem 7: 05/12/16 05:05 05/12/16 05:05 Labs: Abnormal Lab Results - Last 24 Hours (Table) 05/11/16 05/11/16 05/11/16 Range/Units 09:48 12:17 17:39 WBC (3.8-10.6) k/uL RBC (4.30-5.90) m/uL Hgb (13.0-17.5) gm/dL Hct (39.0-53.0) % MCHC (31.0-37.0) g/dL RDW (11.5-15.5) % Plt Count (150-450) k/uL Neutrophils # (Manual) (1.3-7.7) k/uL Lymphocytes # (Manual) (1.0-4.8) k/uL Nucleated RBCs (0-0) /100 WBC PT (9.0-12.0) sec Sodium (137-145) mmol/L BUN (9-20) mg/dL Creatinine (0.66-1.25) mg/dL Glucose (74-99) mg/dL POC Glucose (mg/dL) 248 H 235 H (75-99) mg/dL Crossmatch See Detail 05/11/16 05/12/16 05/12/16 Range/Units 23:20 04:59 05:05 WBC (3.8-10.6) k/uL RBC (4.30-5.90) m/uL Hgb (13.0-17.5) gm/dL Hct (39.0-53.0) % MCHC (31.0-37.0) g/dL RDW (11.5-15.5) % Plt Count (150-450) k/uL Neutrophils # (Manual) (1.3-7.7) k/uL Lymphocytes # (Manual) (1.0-4.8) k/uL Nucleated RBCs (0-0) /100 WBC PT (9.0-12.0) sec Sodium 135 L (137-145) mmol/L BUN 103 H* (9-20) mg/dL Creatinine 2.50 H (0.66-1.25) mg/dL Glucose 187 H (74-99) mg/dL POC Glucose (mg/dL) 238 H 210 H (75-99) mg/dL Crossmatch 05/12/16 05/12/16 05/12/16 Range/Units 05:05 05:05 08:01 WBC 12.0 H (3.8-10.6) k/uL RBC 3.04 L (4.30-5.90) m/uL Hgb 8.2 L (13.0-17.5) gm/dL Hct 27.2 L (39.0-53.0) % MCHC 30.0 L (31.0-37.0) g/dL RDW 24.7 H (11.5-15.5) % Plt Count 122 L (150-450) k/uL Neutrophils # (Manual) 10.8 H (1.3-7.7) k/uL Lymphocytes # (Manual) 0.7 L (1.0-4.8) k/uL Nucleated RBCs 4 H (0-0) /100 WBC PT 34.0 H (9.0-12.0) sec Sodium (137-145) mmol/L BUN (9-20) mg/dL Creatinine (0.66-1.25) mg/dL Glucose (74-99) mg/dL POC Glucose (mg/dL) 178 H (75-99) mg/dL Crossmatch Assessment and Plan Plan: Assessment: #1. Nonoliguric acute kidney injury secondary to ischemic ATN secondary to hypotension. Creatinine 2.5 today. #2. Chronic kidney disease stage IV secondary to solitary right kidney and multiple acute kidney injuries. Baseline creatinine 2 but recently has been in the range of 2.5-3. #3. Systolic CHF with ejection fraction of 30-35%. #4. Anemia. Iron replete. Hemoglobin 8.2 s/p pRBC 05/11. #5. Hypotension. Improved. #6. Elevated BUN related to acute kidney injury. He is currently not on any steroids. Stool for occult blood noted to be positive. #7. Urinary tract infection with urine culture positive for Yi glabrata. Plan: Scheduled to receive another unit of blood today. Lasix 60 mg IV once today. Maintain Aranesp. Encourage oral intake. Maintain [place] catheter with strict I's and O's. Repeat electrolytes in the morning. Antibiotics per infectious disease recommendations. No need for renal replacement therapy at this time. Will continue to assess on a day-to-day basis.
--- NOTE | 2016-05-12 11:40 | P.PN ---
Subjective Principal diagnosis: Septic shock Patient seen and examined in the ICU with nursing staff at bedside. Patient continues to progress and is now working with physical therapy. He was able to dangle his legs at bedside. The patient states his breathing is better today. He has been having adequate urine output. The patient was transfused another unit of blood today. Objective - Vital Signs Vital signs: Vital Signs Temp 98.1 F 05/12/16 08:30 Pulse 104 H 05/12/16 11:26 Resp 29 H 05/12/16 09:00 BP 111/68 05/12/16 09:00 Pulse Ox 93 L 05/12/16 09:00 Intake & Output 05/11/16 05/12/16 05/12/16 18:59 06:59 18:59 Intake Total 620 470 20 Output Total 665 805 305 Balance -45 335 -285 Weight 182 kg 183.5 kg Intake: Intake, IV Titration 310 350 20 Amount Cefepime 2 gm In Sodium 50 50 Chloride 0.9% 50 ml @ 100 mls/hr IVPB Q12H [facility] Rx# :[id number] Micafungin 100 mg In 100 Sodium Chloride 0.9% 100 ml @ 100 mls/hr IVPB DAILY@1200 [facility] Rx#: [id number] Sodium Chloride 0.9% 1, 160 300 20 000 ml @ 20 mls/hr IV . Q24H [facility] Rx#:[id number] Oral 120 Blood Product 310 0 Rc As-1 Unit 310 [id number] Rc As-1 Unit 0 [id number] Output: Urine 665 805 305 Other: Voiding Method Indwelling Catheter Indwelling Catheter Indwelling Catheter ABP, PAP, CO, CI - Last Documented Arterial Blood Pressure 128/58 - Exam Gen: Alert and oriented 3, currently on nasal cannula CV: RRR, s1/s2 Lungs: coarse breath sounds bilaterally Abd: soft, NT/ND, +BS Ext: +2-3 pitting edema, chronic venous bela - Labs CBC & Chem 7: 05/12/16 05:05 05/12/16 05:05 Labs: Abnormal Lab Results - Last 24 Hours (Table) 05/11/16 05/11/16 05/11/16 Range/Units 09:48 12: 17:39 WBC (3.8-10.6) k/uL RBC (4.30-5.90) m/uL Hgb (13.0-17.5) gm/dL Hct (39.0-53.0) % MCHC (31.0-37.0) g/dL RDW (11.5-15.5) % Plt Count (150-450) k/uL Neutrophils # (Manual) (1.3-7.7) k/uL Lymphocytes # (Manual) (1.0-4.8) k/uL Nucleated RBCs (0-0) /100 WBC PT (9.0-12.0) sec Sodium (137-145) mmol/L BUN (9-20) mg/dL Creatinine (0.66-1.25) mg/dL Glucose (74-99) mg/dL POC Glucose (mg/dL) 248 H 235 H (75-99) mg/dL Crossmatch See Detail 05/11/16 05/12/16 05/12/16 Range/Units 23:20 04:59 05:05 WBC (3.8-10.6) k/uL RBC (4.30-5.90) m/uL Hgb (13.0-17.5) gm/dL Hct (39.0-53.0) % MCHC (31.0-37.0) g/dL RDW (11.5-15.5) % Plt Count (150-450) k/uL Neutrophils # (Manual) (1.3-7.7) k/uL Lymphocytes # (Manual) (1.0-4.8) k/uL Nucleated RBCs (0-0) /100 WBC PT (9.0-12.0) sec Sodium 135 L (137-145) mmol/L BUN 103 H* (9-20) mg/dL Creatinine 2.50 H (0.66-1.25) mg/dL Glucose 187 H (74-99) mg/dL POC Glucose (mg/dL) 238 H 210 H (75-99) mg/dL Crossmatch 05/12/16 05/12/16 05/12/16 Range/Units 05:05 05:05 08:01 WBC 12.0 H (3.8-10.6) k/uL RBC 3.04 L (4.30-5.90) m/uL Hgb 8.2 L (13.0-17.5) gm/dL Hct 27.2 L (39.0-53.0) % MCHC 30.0 L (31.0-37.0) g/dL RDW 24.7 H (11.5-15.5) % Plt Count 122 L (150-450) k/uL Neutrophils # (Manual) 10.8 H (1.3-7.7) k/uL Lymphocytes # (Manual) 0.7 L (1.0-4.8) k/uL Nucleated RBCs 4 H (0-0) /100 WBC PT 34.0 H (9.0-12.0) sec Sodium (137-145) mmol/L BUN (9-20) mg/dL Creatinine (0.66-1.25) mg/dL Glucose (74-99) mg/dL POC Glucose (mg/dL) 178 H (75-99) mg/dL Crossmatch Assessment and Plan Plan: Acute on chronic hypoxic respiratory failure HCAP Acute on chronic renal failure, CKD 4 Septic shock Afib with CVR UTI POA, Yi glabrata Systolic CHF, EF 35-40% Mild to moderate pulmonary hypertension, RVSP 46 mmHg Recent C diff colitis Bicytopenia NSTEMI Coumadin coagulopathy Hyponatremia Hx strep pyogenes bacteremia AECOPD GUICHO/OHS, on bipap Hx tobacco abuse DM2 PCM Morbid obesity Continue Bipap support, wean FiO2 for sat > or = 88% ABX: Continue Cefepime, Micafungin added per ID Continue subcu heparin, repeat INR, will add heparin drip if subtherapeutic Nephro and cardio recommendations Pressors have been weaned off 0.9NS @ 20 cc/hr Protonix for GI prophylaxis Continue Duonebs and Pulmicort Continue SoluCortef - will taper Monitor Hgb, transfuse 1 unit PRBC today per primary care physician Lasix per nephrology Ultrasound of the chest reveals no evidence of pleural effusion. Monitor renal function PT and OT
[2016-05-12] MEDS: CEFEPIME 2 GM in SODIUM CHLORIDE 0.9% 50 ML IVPB SCH (12:18)
[2016-05-12 12:22] LABS: Glucose,Whole Blood 191 mg/dL (75-99)
[2016-05-12] MEDS: MICAFUNGIN 100 MG in SODIUM CHLORIDE 0.9% 100 ML IVPB SCH (12:24)
--- NOTE | 2016-05-12 14:33 | P.PN ---
Subjective Principal diagnosis: Septic shock Patient is a 56-year-old male with complex medical history significant for recent C. diff and streptococcal agalactiae bacteremia secondary to cellulitis. Patient presenting to the emergency department from an ECF after being found unresponsive. Patient was found to have evidence of acute on chronic kidney injury and septic shock with possible concern for pneumonia and urinary tract infection. Patient was admitted to the intensive care unit for further treatment. Patient is being followed by multiple consultants including Dr. Chinchilla from infectious disease service, Dr. Knox for ICU management and pulmonary service, Dr. Lorenzo from nephrology service, and cardiology service. Patient is evaluated in the intensive care unit. Patient is feeling well. Denies chills, fevers, nausea, vomiting, increased shortness of breath, chest pain, or abdominal pain. Patient is tolerating a regular diet. Urine output adequate. Last bowel movement 4 days ago. WBC increased to 12. Hemoglobin increased to 8.2 from 7.2 yesterday status post transfusion of 1 unit of PRBC. INR 3.5. Preliminary blood culture no growth after 96 hours. Creatinine slightly increased to 2.5. Patient continues to have evidence of hyperglycemia. Patient is awaiting transfer out of the intensive care unit to stepdown unit when bed is available. Objective - Vital Signs Vital signs: Vital Signs Temp 98.1 F 05/12/16 08:30 Pulse 106 H 05/12/16 11:39 Resp 29 H 05/12/16 09:00 BP 111/68 05/12/16 09:00 Pulse Ox 93 L 05/12/16 09:00 Intake & Output 05/11/16 05/12/16 05/12/16 18:59 06:59 18:59 Intake Total 620 470 190 Output Total 665 805 430 Balance -45 -335 -240 Weight 182 kg 183.5 kg Intake: Intake, IV Titration 310 350 190 Amount Cefepime 2 gm In Sodium 50 50 50 Chloride 0.9% 50 ml @ 100 mls/hr IVPB Q12H [facility] Rx# :[id number] Micafungin 100 mg In 100 100 Sodium Chloride 0.9% 100 ml @ 100 mls/hr IVPB DAILY@1200 [facility] Rx#: [id number] Sodium Chloride 0.9% 1, 160 300 40 000 ml @ 20 mls/hr IV . Q24H [facility] Rx#:[id number] Oral 120 Blood Product 310 0 Rc As-1 Unit 310 [id number] Rc As-1 Unit 0 [id number] Output: Urine 665 805 430 Other: Voiding Method Indwelling Catheter Indwelling Catheter Indwelling Catheter ABP, PAP, CO, CI - Last Documented Arterial Blood Pressure 128/58 - Exam GENERAL: Pt awake and alert, well-appearing, well-nourished, and in no acute distress. HEAD: Atraumatic, normocephalic. EYES: Pupils equal, round, and reactive to light, extraocular movements intact, sclera anicteric, conjunctiva are normal. ENT: Moist mucous membranes. NECK:Supple without lymphadenopathy or JVD. LUNGS: Breath sounds coarse to auscultation bilaterally. No wheezes, rales, or rhonchi. HEART: Heart S1, S2, no S3 or S4. Irregularly irregular.. No murmurs, rubs or gallops. ABDOMEN: Soft, obese, nontender, nondistended, normoactive bowel sounds. No guarding, no rebound. No masses or organomegaly appreciated. EXTREMITIES: Palpable peripheral pulses. +2 pitting edema to bilateral lower extremities with chronic venous stasis. No calf tenderness. NEUROLOGICAL: Pt oriented x 3. No focal deficits noted. Patient is noted to have tremors of his upper extremities, bilateral. PSYCH: Normal mood, normal affect. SKIN: Warm, dry. - Labs CBC & Chem 7: 05/12/16 05:05 05/12/16 05:05 Labs: Abnormal Lab Results - Last 24 Hours (Table) 05/11/16 05/11/16 05/11/16 Range/Units 09:48 17:39 23:20 WBC (3.8-10.6) k/uL RBC (4.30-5.90) m/uL Hgb (13.0-17.5) gm/dL Hct (39.0-53.0) % MCHC (31.0-37.0) g/dL RDW (11.5-15.5) % Plt Count (150-450) k/uL Neutrophils # (Manual) (1.3-7.7) k/uL Lymphocytes # (Manual) (1.0-4.8) k/uL Nucleated RBCs (0-0) /100 WBC PT (9.0-12.0) sec Sodium (137-145) mmol/L BUN (9-20) mg/dL Creatinine (0.66-1.25) mg/dL Glucose (74-99) mg/dL POC Glucose (mg/dL) 235 H 238 H (75-99) mg/dL Crossmatch See Detail 05/12/16 05/12/16 05/12/16 Range/Units 04:59 05:05 05:05 WBC 12.0 H (3.8-10.6) k/uL RBC 3.04 L (4.30-5.90) m/uL Hgb 8.2 L (13.0-17.5) gm/dL Hct 27.2 L (39.0-53.0) % MCHC 30.0 L (31.0-37.0) g/dL RDW 24.7 H (11.5-15.5) % Plt Count 122 L (150-450) k/uL Neutrophils # (Manual) 10.8 H (1.3-7.7) k/uL Lymphocytes # (Manual) 0.7 L (1.0-4.8) k/uL Nucleated RBCs 4 H (0-0) /100 WBC PT (9.0-12.0) sec Sodium 135 L (137-145) mmol/L BUN 103 H* (9-20) mg/dL Creatinine 2.50 H (0.66-1.25) mg/dL Glucose 187 H (74-99) mg/dL POC Glucose (mg/dL) 210 H (75-99) mg/dL Crossmatch 05/12/16 05/12/16 05/12/16 Range/Units 05:05 08:01 12:21 WBC (3.8-10.6) k/uL RBC (4.30-5.90) m/uL Hgb (13.0-17.5) gm/dL Hct (39.0-53.0) % MCHC (31.0-37.0) g/dL RDW (11.5-15.5) % Plt Count (150-450) k/uL Neutrophils # (Manual) (1.3-7.7) k/uL Lymphocytes # (Manual) (1.0-4.8) k/uL Nucleated RBCs (0-0) /100 WBC PT 34.0 H (9.0-12.0) sec Sodium (137-145) mmol/L BUN (9-20) mg/dL Creatinine (0.66-1.25) mg/dL Glucose (74-99) mg/dL POC Glucose (mg/dL) 178 H 191 H (75-99) mg/dL Crossmatch Assessment and Plan Plan: Impression: 1. Septic shock suspect secondary to pneumonia, healthcare acquired and urinary tract infection. Urine culture positive for Yi glabrata. 2. Acute on chronic hypoxic respiratory failure. 3. Acute on chronic renal failure, stage IV secondary to ischemic ATN secondary to hypotension. 4. Acute on chronic systolic congestive heart failure with EF 35-40%. 5. Mild to moderate pulmonary hypertension. 6. History of recent C. diff colitis. 7. Non-STEMI. 8. History of strep agalactiae bacteremia. 9. Anemia, iron deficiency. Hemoglobin 8.2 status post transfusion of 1 unit of PRBC yesterday. 10. Elevated BUN related to acute kidney injury, also stool for occult blood noted to be positive. 11. Type 2 diabetes mellitus, insulin requiring, with hyperglycemia. 12. History of gout. 13. Chronic atrial fibrillation. 14. Osteoarthritis, multiple joints. 15. History of rheumatoid arthritis. 16. Obstructive sleep apnea on BiPAP machine. 17. Depression, stable. 18. History of nicotine dependence. 19. Morbid obesity, BMI 47.8. 20. Decubitus ulcer to bilateral buttocks, unstageable. 21. Medical debility. Plan: Continue to monitor patient. Continue current medications. Will increase Lantus to 20 units in the morning and 20 units at bedtime. Patient will receive another unit of PRBC for hemoglobin of 8.2 followed by Lasix 60 mg IV. Continue to monitor INR, patient may need heparin IV if subtherapeutic per dermatology procedural physician. Continue physical therapy for generalized weakness. Continue local wound care. Continue to follow with consultants. Repeat CBC, BMP, PT/ INR in a.m. The above impression and plan have been discussed and directed by Dr. Seth. Steffany ORTIZ acting as scribe for Dr. Seth.
--- NOTE | 2016-05-12 18:12 | PN ---
This patient is a 56-year-old gentleman with multiple medical problems, including chronic atrial fibrillation, renal failure, GERD, hypertension, who was admitted to hospital with renal failure. Cardiology has been consulted because of atrial fibrillation. Patient remains in atrial fibrillation with controlled ventricular rate. Patient is actually sleeping at the time of my evaluation. He is currently on amiodarone 200 b.i.d., Coreg 3.125 b.i.d., insulin. On exam, comfortable at rest. Vital signs are stable. There is no jugular venous distention. Chest exam reveals diminished air entry at the bases. Heart exam reveals first and second heart sounds; no gallop; irregular rhythm. Bilateral chronic stasis changes and 2+ edema. Labs show INR of 3.5. BUN is 103. Creatinine is 2.5. ASSESSMENT: Chronic atrial fibrillation with controlled ventricular rate. PLAN: Will hold the Coumadin today. If the INR improves, we may be able to restart him tomorrow.
--- NOTE | 2016-05-12 18:46 | PN ---
DATE OF SERVICE: 05/12/2016 REASON FOR FOLLOW-UP: 1. Pneumonia and urinary tract infection. 2. Sacral wound. INTERVAL HISTORY: The patient is afebrile. He has been breathing comfortably. Denies significant chest pain or shortness of breath, occasional cough. No abdominal pain. No diarrhea. On examination, blood pressure is 109/67, pulse 111, temperature 98.1. He is 94% on 3-L nasal cannula. General description is a middle-age male lying in bed in no distress. RESPIRATORY SYSTEM: Unlabored breathing. Clear to auscultation anteriorly. HEART: S1, S2 regular rate. ABDOMEN: Soft, no tenderness. EXTREMITIES: Bilateral lower extremity with swelling, no definite redness. The sacral wound dressing has been changed by the R.N. and did mention overall wound has dried out. LABS: Hemoglobin is 8.2, white count of 12 with a BUN of 103, creatinine 2.5. Blood culture has been negative. Urine with Yi glabrata. Repeat was ordered, not done. DIAGNOSTIC IMPRESSION AND PLAN: 1. Patient admitted to the hospital with sepsis with concern for possible pneumonia and urinary tract infection. So far his blood culture has been negative. Sputum was not collected. Currently on cefepime and micafungin to cover for the urinary tract infection as well. We will repeat a urinalysis from the new [place]. 2. Patient with sacral pressure ulcer. Continue with Aquacel Silver dressing and keep the area off the pressure.
[2016-05-12 18:56] LABS: Glucose,Whole Blood 213 mg/dL (75-99)
[2016-05-12] MEDS ORDERED: IPRATROPIUM-ALBUTEROL 3 ML NEB INHALATION PRN (21:50)
[2016-05-12] MEDS: SODIUM CHLORIDE 0.9% 1,000 ML IV SCH (21:57)
[2016-05-13 00:52] LABS: Glucose,Whole Blood 227 mg/dL (75-99)
[2016-05-13] MEDS: CEFEPIME 2 GM in SODIUM CHLORIDE 0.9% 50 ML IVPB SCH ×3 (01:05→23:45)
[2016-05-13] MEDS: HYDROCORTISONE SUCCINATE 100 MG/2 ML VIAL IV SCH ×4 (01:06→23:45)
[2016-05-13] MEDS: INSULIN LISPRO (humaLOG) 300 UNIT/3 ML VIAL SQ SCH ×5 (01:13→23:45)
[2016-05-13 05:45] LABS: INR 3.1 (<1.1); Prothrombin Time 29.9 sec (9.0-12.0)
[2016-05-13 05:58] LABS: Anisocytosis Marked; CH 26.6; CHCM 29.5; HCT 30.2 % (39.0-53.0); HDW 4.49; HGB 9.1 gm/dL (13.0-17.5); Hypochromasia Marked; MCH 27.2 pg (25.0-35.0); MCHC 30.2 g/dL (31.0-37.0); MCV 90.1 fL (80.0-100.0); Macrocytosis Slight; Poikilocytosis Moderate; RBC 3.35 m/uL (4.30-5.90); RDW 24.1 % (11.5-15.5); WBC (Perox) 9.18
[2016-05-13 05:59] LABS: Calcium 8.4 mg/dL (8.4-10.2); Magnesium 1.8 mg/dL (1.6-2.3); Phosphorous 4.1 mg/dL (2.5-4.5); Potassium 4.2 mmol/L (3.5-5.1)
[2016-05-13 06:25] LABS: Glucose,Whole Blood 174 mg/dL (75-99)
[2016-05-13 06:25] LABS: Add Differential Manual Differential
[2016-05-13 06:28] LABS: Metamyelocytes % 0.5 %; Myelocytes % 0.5 %; Nucleated Red Blood Cells 3 /100 WBC (0-0); Total Cells Counted 200; WBC 8.7 k/uL (3.8-10.6)
[2016-05-13 06:29] LABS: Manual Review Performed; Polychromasia Present
[2016-05-13] MEDS: BUDESONIDE 0.5 MG/2 ML NEBU INHALATION SCH ×2 (07:47→20:04)
[2016-05-13] MEDS: IPRATROPIUM-ALBUTEROL 3 ML NEB INHALATION SCH ×4 (07:47→20:04)
[2016-05-13] MEDS: PANTOPRAZOLE 40 MG TABLET PO SCH (09:10)
[2016-05-13] MEDS: AMIODARONE 200 MG TAB PO SCH (09:10)
[2016-05-13] MEDS: CARVEDILOL 3.125 MG TAB PO SCH (09:10)
[2016-05-13] MEDS: INSULIN GLARGINE 100 UNIT/ML 10 ML VIAL SQ SCH ×2 (09:11→21:11)
[2016-05-13] MEDS: GABAPENTIN 100 MG CAP PO SCH ×3 (09:12→22:34)
--- NOTE | 2016-05-13 09:54 | PN ---
A 56-year-old white male with complex medical history of significant previous C. difficile and staph agalactiae bacteria secondary to cellulitis presented to the emergency department after being profoundly unresponsive. He was found to have evidence of acute on chronic renal failure with sepsis and found to have underlying pneumonia with urinary tract infection. At that period of time he was put up in ICU, he was seen by both Dr. Chinchilla, Dr. Knox, ICU management pulmonary service and Dr. Lorenzo from nephrology. At that period of time it was felt to be he was septic and had a WBC count that was elevated along with lactic acid and severe anemia. His 7.2 anemia was treated with 1 unit of blood. He was given one more at 8.2 due to his blood pressure being barely systolic barely above 100. Over last ( ) hours there has been a negative culture a blood culture. He was found to have urine culture positive for Yi glabrata and an underlying pneumonia. At this time his labs show a WBC of 8.6. He has a 9.1 hemoglobin. Platelet count is at 89,000. He has a 3.1 INR. Creatinine of 2.29 and 105 BUN. His sugars are staying in the 190, 200 range. Medication-levine he is still on DuoNeb updraft, amiodarone 200 mg b.i.d., Pulmicort twice a day, Coreg 3.125 twice a day. Still on antibiotic of cefepime 2 grams q.12. He has now been started on Procrit ( ) subcu every 7 days. He is on Cortef still 50 mg q.8 IV, 20 Lantus in the morning 20 Lantus at night and insulin to scale accordingly. He has also been on micafungin 100 mg IV piggyback. He stays on Protonix 40 a day. REVIEW OF SYSTEMS: CARDIAC: No chest pain. PULMONARY: No shortness of breath. No cough. No orthopnea, no PND. GI: No hematemesis, melena, hematochezia, has had a bowel movement. He has not had any diarrhea. He has some open areas with ( ) on the buttocks and upper back area. He is still having swelling of the legs as he complains of with some leg pain. PHYSICAL EXAMINATION: His blood pressure is 110/80, heart rate was in the 70s, respiratory rate is 16, temperature 98. EYES: Pupils are equal, round, react to light and accommodation. He is alert, well oriented to person, place, and thing. Neck is supple with midline trachea. CHEST: Essentially clear at this time. No wheezes, no rhonchi. Heart is at irregular rhythm of that of atrial fib, but well controlled. ABDOMEN: Soft. He is obese. It is very hard to palpate masses or organomegaly. EXTREMITIES: He has a large amount of swelling and chronic stasis changes on his legs with +2 pitting edema, but no open wounds. Neurologically he is orientated to person, place, and thing. No tremors. Weakness in the lower extremities and the upper extremities. PSYCH: His mood and affect is normal at this time. His skin appears to be warm and just the chronic stasis changes. ASSESSMENT: 1. Septic shock secondary to pneumonia. 2. Urine culture positive for Yi glabrata. 3. Stage IV renal failure with acute ATN secondary to hypotension. 4. Acute on chronic systolic heart failure. His EF is 35%. 5. Mild to moderate pulmonary hypertension. 6. He did have acute respiratory failure that is stable. 7. Recent coronary artery disease. 8. Iron deficiency anemia. 9. Type 2 diabetes requiring insulin support. 10. History of gout. 11. Chronic atrial fibrillation. 12. Severe arthritis. 13. Sleep apnea on BiPAP. 14. Depression. 15. Morbid obesity, body mass index is greater than 47. 16. History of history of nicotine dependence. 17. Has some ulcers on bilateral buttocks unstageable at this time. 18. Complete medical disability. PLAN: Continue the same medications. PT and INR are stable. Cortef will be just accordingly. Please refer to my orders.
--- NOTE | 2016-05-13 10:18 | P.PN ---
Subjective Patient is seen in follow-up for acute kidney injury on chronic kidney disease. Patient has chronic kidney disease stage IV secondary to solitary right kidney and cardiorenal syndrome with baseline creatinine in the range of 2.5-3. Creatinine was 3.3 on admission and is 2.29 today. He is currently off all vasopressors as well as IV fluids. He remains nonoliguric. Patient is awake and alert. He denies any chest pain or shortness of breath. Denies vomiting or diarrhea. Appetite is good. Hemoglobin improved to 9.1 this morning. He did receive 2 units of packed red blood cells transfusion this admission. Vital signs are stable. General: The patient appeared well nourished and normally developed. HEENT: Head exam is unremarkable. Neck is without jugular venous distension. LUNGS: Rhonchi at bases. Breath sounds decreased. HEART: Rate and Rhythm are regular. First and second heart sounds normal. No murmurs, rubs or gallops. ABDOMEN: Abdominal exam reveals normal bowel sounds. Non-tender and non- distended. No evidence of peritonitis. EXTREMITITES: 1+ edema. Chronic venous stasis changes. Objective - Vital Signs Vital signs: Vital Signs Temp 98.3 F 05/13/16 04:00 Pulse 81 05/13/16 08:02 Resp 24 05/13/16 04:00 BP 122/85 05/13/16 04:00 Pulse Ox 98 05/13/16 04:00 Intake & Output 05/12/16 05/13/16 05/13/16 18:59 06:59 18:59 Intake Total 520 140 Output Total 1005 745 Balance -485 -605 Weight 177.5 kg Intake: Intake, IV Titration 210 140 Amount Cefepime 2 gm In Sodium 50 Chloride 0.9% 50 ml @ 100 mls/hr IVPB Q12H [facility] Rx# :[id number] Micafungin 100 mg In 100 100 Sodium Chloride 0.9% 100 ml @ 100 mls/hr IVPB DAILY@1200 [facility] Rx#: [id number] Sodium Chloride 0.9% 1, 60 40 000 ml @ 20 mls/hr IV . Q24H [facility] Rx#:[id number] Blood Product 310 Rc As-1 Unit 310 [id number] Output: Urine 1005 745 Other: Voiding Method Indwelling Catheter Indwelling Catheter ABP, PAP, CO, CI - Last Documented Arterial Blood Pressure 128/58 - Labs CBC & Chem 7: 05/13/16 05:30 05/13/16 05:30 Labs: Abnormal Lab Results - Last 24 Hours (Table) 05/11/16 05/12/16 05/12/16 Range/Units 09:48 12:21 18:51 RBC (4.30-5.90) m/uL Hgb (13.0-17.5) gm/dL Hct (39.0-53.0) % MCHC (31.0-37.0) g/dL RDW (11.5-15.5) % Plt Count (150-450) k/uL Neutrophils # (Manual) (1.3-7.7) k/uL Lymphocytes # (Manual) (1.0-4.8) k/uL Nucleated RBCs (0-0) /100 WBC PT (9.0-12.0) sec Sodium (137-145) mmol/L BUN (9-20) mg/dL Creatinine (0.66-1.25) mg/dL Glucose (74-99) mg/dL POC Glucose (mg/dL) 191 H 213 H (75-99) mg/dL Crossmatch See Detail 05/13/16 05/13/16 05/13/16 Range/Units 00:50 05:30 05:30 RBC 3.35 L (4.30-5.90) m/uL Hgb 9.1 L (13.0-17.5) gm/dL Hct 30.2 L (39.0-53.0) % MCHC 30.2 L (31.0-37.0) g/dL RDW 24.1 H (11.5-15.5) % Plt Count 89 L (150-450) k/uL Neutrophils # (Manual) 8.0 H (1.3-7.7) k/uL Lymphocytes # (Manual) 0.4 L (1.0-4.8) k/uL Nucleated RBCs 3 H (0-0) /100 WBC PT (9.0-12.0) sec Sodium 136 L (137-145) mmol/L BUN 105 H* (9-20) mg/dL Creatinine 2.29 H (0.66-1.25) mg/dL Glucose 155 H (74-99) mg/dL POC Glucose (mg/dL) 227 H (75-99) mg/dL Crossmatch 05/13/16 05/13/16 Range/Units 05:30 06:22 RBC (4.30-5.90) m/uL Hgb (13.0-17.5) gm/dL Hct (39.0-53.0) % MCHC (31.0-37.0) g/dL RDW (11.5-15.5) % Plt Count (150-450) k/uL Neutrophils # (Manual) (1.3-7.7) k/uL Lymphocytes # (Manual) (1.0-4.8) k/uL Nucleated RBCs (0-0) /100 WBC PT 29.9 H (9.0-12.0) sec Sodium (137-145) mmol/L BUN (9-20) mg/dL Creatinine (0.66-1.25) mg/dL Glucose (74-99) mg/dL POC Glucose (mg/dL) 174 H (75-99) mg/dL Crossmatch Microbiology - Last 24 Hours (Table) 05/09/16 05:50 Genital Culture - Final Penis Assessment and Plan Plan: Assessment: #1. Nonoliguric acute kidney injury secondary to ischemic ATN secondary to hypotension. Creatinine 2.29 today. #2. Chronic kidney disease stage IV secondary to solitary right kidney and multiple acute kidney injuries. Baseline creatinine 2 but recently has been in the range of 2.5-3. #3. Systolic CHF with ejection fraction of 30-35%. #4. Anemia. Iron replete. Hemoglobin 8.2 s/p pRBC 05/11 and 05/12. #5. Hypotension. Improved. #6. Elevated BUN related to acute kidney injury. He is currently not on any steroids. Stool for occult blood noted to be positive. #7. Urinary tract infection with urine culture positive for Yi glabrata. Plan: Maintain Aranesp. Encourage oral intake. Maintain [place] catheter with strict I's and O's. Repeat electrolytes in the morning. Antibiotics per infectious disease recommendations. No need for renal replacement therapy at this time. Will continue to assess on a day-to-day basis.
[2016-05-13] MEDS ORDERED: CARVEDILOL 3.125 MG TAB PO ONE (12:00)
[2016-05-13 12:22] LABS: Glucose,Whole Blood 139 mg/dL (75-99)
--- NOTE | 2016-05-13 12:54 | PN ---
Mr. Small is a 56-year-old male with a known history of chronic atrial fibrillation, history of diabetes as well as history of renal failure who presented with change in mental status. He is more awake, alert. He is feeling better. He denies any symptoms of chest pain. He denies any dizziness. He had evidence of infection on presentation and worsening renal failure that has been improving at this time. He continues to be on amiodarone 200 mg twice a day. His Coumadin is on hold. He is on Coreg 3.125 mg twice a day as well. PHYSICAL EXAMINATION: Blood pressure 122/80 with the heart rate in the 90s. LUNGS: No wheezes. HEART: Irregular, irregular. S1, S2, no S3, no rub appreciated. ABDOMEN: Soft, obese, nontender. EXTREMITIES: Manjit wrapping in place. Lab data revealed BUN and creatinine of 105 and 2.29. Potassium 4.2. Hemoglobin of 9.1. His INR is 3.1. IMPRESSION: 1. Renal failure, improving. 2. History of chronic atrial fibrillation. 3. History of cardiomyopathy. 4. Pneumonia and sepsis. 5. Diabetes. RECOMMENDATION: From the cardiac standpoint, I will increase the dose of his Coreg. I will cut down the dose of his amiodarone since he is in chronic atrial fibrillation. Will follow his renal function and depending on his progress, further recommendation will be made.
[2016-05-13] MEDS: MICAFUNGIN 100 MG in SODIUM CHLORIDE 0.9% 100 ML IVPB SCH (13:05)
--- NOTE | 2016-05-13 14:07 | P.PN ---
Subjective Principal diagnosis: Septic shock Patient seen and examined in the ICU with nursing staff at bedside. Patient has been hemodynamically stable and doing well. He has had adequate urine output. He has not had any fevers or chills. The patient denies any abdominal pain, diarrhea, chest pain, shortness of breath. Objective - Vital Signs Vital signs: Vital Signs Temp 98.0 F 05/13/16 08:00 Pulse 102 H 05/13/16 12:00 Resp 20 05/13/16 12:00 BP 142/68 05/13/16 12:00 Pulse Ox 94 L 05/13/16 12:00 Intake & Output 05/12/16 05/13/16 05/13/16 18:59 06:59 18:59 Intake Total 520 140 900 Output Total 7954 807 5855 Balance -485 -605 -475 Weight 177.5 kg 177.5 kg Intake: Intake, IV Titration 210 140 180 Amount Cefepime 2 gm In Sodium 50 Chloride 0.9% 50 ml @ 100 mls/hr IVPB Q12H [facility] Rx# :[id number] Micafungin 100 mg In 100 100 Sodium Chloride 0.9% 100 ml @ 100 mls/hr IVPB DAILY@1200 [facility] Rx#: [id number] Sodium Chloride 0.9% 1, 60 40 180 000 ml @ 20 mls/hr IV . Q24H [facility] Rx#:[id number] Oral 720 Blood Product 310 Rc As-1 Unit 310 [id number] Output: Urine 6360 871 9295 Other: Voiding Method Indwelling Catheter Indwelling Catheter Indwelling Catheter # Bowel Movements 1 ABP, PAP, CO, CI - Last Documented Arterial Blood Pressure 128/58 - Exam Gen: Alert and oriented 3, currently on nasal cannula CV: RRR, s1/s2 Lungs: Diminished breath sounds bilaterally Abd: soft, NT/ND, +BS Ext: +2-3 pitting edema, chronic venous stasis - Labs CBC & Chem 7: 05/13/16 05:30 05/13/16 05:30 Labs: Abnormal Lab Results - Last 24 Hours (Table) 05/11/16 05/12/16 05/13/16 Range/Units 09:48 18:51 00:50 RBC (4.30-5.90) m/uL Hgb (13.0-17.5) gm/dL Hct (39.0-53.0) % MCHC (31.0-37.0) g/dL RDW (11.5-15.5) % Plt Count (150-450) k/uL Neutrophils # (Manual) (1.3-7.7) k/uL Lymphocytes # (Manual) (1.0-4.8) k/uL Nucleated RBCs (0-0) /100 WBC PT (9.0-12.0) sec Sodium (137-145) mmol/L BUN (9-20) mg/dL Creatinine (0.66-1.25) mg/dL Glucose (74-99) mg/dL POC Glucose (mg/dL) 213 H 227 H (75-99) mg/dL Crossmatch See Detail 05/13/16 05/13/16 05/13/16 Range/Units 05:30 05:30 05:30 RBC 3.35 L (4.30-5.90) m/uL Hgb 9.1 L (13.0-17.5) gm/dL Hct 30.2 L (39.0-53.0) % MCHC 30.2 L (31.0-37.0) g/dL RDW 24.1 H (11.5-15.5) % Plt Count 89 L (150-450) k/uL Neutrophils # (Manual) 8.0 H (1.3-7.7) k/uL Lymphocytes # (Manual) 0.4 L (1.0-4.8) k/uL Nucleated RBCs 3 H (0-0) /100 WBC PT 29.9 H (9.0-12.0) sec Sodium 136 L (137-145) mmol/L BUN 105 H* (9-20) mg/dL Creatinine 2.29 H (0.66-1.25) mg/dL Glucose 155 H (74-99) mg/dL POC Glucose (mg/dL) (75-99) mg/dL Crossmatch 05/13/16 05/13/16 Range/Units 06:22 12:20 RBC (4.30-5.90) m/uL Hgb (13.0-17.5) gm/dL Hct (39.0-53.0) % MCHC (31.0-37.0) g/dL RDW (11.5-15.5) % Plt Count (150-450) k/uL Neutrophils # (Manual) (1.3-7.7) k/uL Lymphocytes # (Manual) (1.0-4.8) k/uL Nucleated RBCs (0-0) /100 WBC PT (9.0-12.0) sec Sodium (137-145) mmol/L BUN (9-20) mg/dL Creatinine (0.66-1.25) mg/dL Glucose (74-99) mg/dL POC Glucose (mg/dL) 174 H 139 H (75-99) mg/dL Crossmatch Microbiology - Last 24 Hours (Table) 05/09/16 05:50 Genital Culture - Final Penis Assessment and Plan Plan: Acute on chronic hypoxic respiratory failure HCAP Acute on chronic renal failure, CKD 4 Septic shock, resolved Afib with CVR UTI POA, Yi glabrata Systolic CHF, EF 35-40% Mild to moderate pulmonary hypertension, RVSP 46 mmHg Recent C diff colitis Bicytopenia NSTEMI Coumadin coagulopathy Hyponatremia Hx strep pyogenes bacteremia AECOPD GUICHO/OHS, on bipap Hx tobacco abuse DM2 PCM Morbid obesity Continue Bipap support, wean FiO2 for sat > or = 88% ABX: Continue Cefepime, Micafungin added per ID Continue subcu heparin, monitor INR Nephro and cardio recommendations 0.9NS @ 20 cc/hr Protonix for GI prophylaxis Continue Duonebs and Pulmicort Continue SoluCortef - will taper Lasix per nephrology Ultrasound of the chest reveals no evidence of pleural effusion. Monitor renal function PT and OT
[2016-05-13 17:38] LABS: Glucose,Whole Blood 168 mg/dL (75-99)
[2016-05-13] MEDS: CARVEDILOL 6.25 MG TAB PO SCH (17:38)
[2016-05-13] MEDS: SODIUM CHLORIDE 0.9% 1,000 ML IV SCH (17:39)
[2016-05-13 23:47] LABS: Glucose,Whole Blood 150 mg/dL (75-99)
[2016-05-14 04:56] LABS: Glucose,Whole Blood 134 mg/dL (75-99)
[2016-05-14 05:06] LABS: Anisocytosis Marked; Basophils % (A) 0 %; CH 26.7; CHCM 29.6; Eosinophils % (A) 0 %; HCT 29.9 % (39.0-53.0); HDW 4.41; HGB 8.9 gm/dL (13.0-17.5); Hypochromasia Marked; Luc # (Auto) 0.11; Luc % (Auto) 1; Lymphocytes # (A) 0.4 k/uL (1.0-4.8); Lymphocytes % (A) 4 %; MCH 27.1 pg (25.0-35.0); MCHC 29.9 g/dL (31.0-37.0); MCV 90.4 fL (80.0-100.0); Macrocytosis Slight; Mean Platelet Volume 8.6; Microcytosis Slight; Monocytes # (A) 0.3 k/uL (0-1.0); Monocytes % (A) 3 %; Neutrophils # (A) 8.1 k/uL (1.3-7.7); Neutrophils % (A) 91 %; Poikilocytosis Moderate; RBC 3.31 m/uL (4.30-5.90); RDW 24.5 % (11.5-15.5); WBC 8.9 k/uL (3.8-10.6); WBC (Perox) 8.71
[2016-05-14 05:13] LABS: INR 2.7 (<1.1); Prothrombin Time 25.9 sec (9.0-12.0)
[2016-05-14 05:37] LABS: Calcium 8.2 mg/dL (8.4-10.2); Potassium 4.4 mmol/L (3.5-5.1)
[2016-05-14] MEDS: INSULIN LISPRO (humaLOG) 300 UNIT/3 ML VIAL SQ SCH ×4 (06:04→22:47)
[2016-05-14] MEDS: BUDESONIDE 0.5 MG/2 ML NEBU INHALATION SCH ×2 (07:27→20:53)
[2016-05-14] MEDS: IPRATROPIUM-ALBUTEROL 3 ML NEB INHALATION SCH ×4 (07:27→20:53)
[2016-05-14] MEDS: CARVEDILOL 6.25 MG TAB PO SCH ×2 (09:06→18:45)
[2016-05-14] MEDS: HYDROCORTISONE SUCCINATE 100 MG/2 ML VIAL IV SCH ×2 (09:06→21:04)
[2016-05-14] MEDS: AMIODARONE 200 MG TAB PO SCH (09:06)
[2016-05-14] MEDS: GABAPENTIN 100 MG CAP PO SCH ×3 (09:06→21:03)
[2016-05-14] MEDS: PANTOPRAZOLE 40 MG TABLET PO SCH (09:07)
[2016-05-14] MEDS: INSULIN GLARGINE 100 UNIT/ML 10 ML VIAL SQ SCH ×2 (09:08→21:04)
--- NOTE | 2016-05-14 09:28 | P.PN ---
Subjective Patient is seen in follow-up for acute kidney injury on chronic kidney disease. Patient has chronic kidney disease stage IV secondary to solitary right kidney and cardiorenal syndrome with baseline creatinine in the range of 2.5-3. Creatinine was 3.3 on admission and is 2.1 today. He is currently off all vasopressors as well as IV fluids. He remains nonoliguric. Patient is awake and alert. He denies any chest pain or shortness of breath. Denies vomiting or diarrhea. Appetite is good. Hemoglobin 8.9 this morning. He did receive 2 units of packed red blood cells transfusion this admission. Vital signs are stable. General: The patient appeared well nourished and normally developed. HEENT: Head exam is unremarkable. Neck is without jugular venous distension. LUNGS: Rhonchi at bases. Breath sounds decreased. HEART: Rate and Rhythm are regular. First and second heart sounds normal. No murmurs, rubs or gallops. ABDOMEN: Abdominal exam reveals normal bowel sounds. Non-tender and non- distended. No evidence of peritonitis. EXTREMITITES: 1+ edema. Chronic venous stasis changes. Objective - Vital Signs Vital signs: Vital Signs Temp 97.8 F 05/14/16 04:00 Pulse 95 05/14/16 07:41 Resp 20 05/14/16 04:00 BP 121/64 05/14/16 04:00 Pulse Ox 95 05/14/16 04:00 Intake & Output 05/13/16 05/14/16 05/14/16 18:59 06:59 18:59 Intake Total 900 760 Output Total 1375 1225 Balance -475 -465 Weight 177.5 kg 175.9 kg Intake: Intake, IV Titration 180 400 Amount Cefepime 2 gm In Sodium 100 Chloride 0.9% 50 ml @ 100 mls/hr IVPB Q12H [facility] Rx# :[id number] Sodium Chloride 0.9% 1, 180 300 000 ml @ 20 mls/hr IV . Q24H [facility] Rx#:[id number] Oral 720 360 Output: Urine 1375 1225 Other: Voiding Method Indwelling Catheter Indwelling Catheter # Bowel Movements 1 1 ABP, PAP, CO, CI - Last Documented Arterial Blood Pressure 128/58 - Labs CBC & Chem 7: 05/14/16 04:55 05/14/16 04:55 Labs: Abnormal Lab Results - Last 24 Hours (Table) 05/13/16 05/13/16 05/13/16 Range/Units 12:20 17:36 23:44 RBC (4.30-5.90) m/uL Hgb (13.0-17.5) gm/dL Hct (39.0-53.0) % MCHC (31.0-37.0) g/dL RDW (11.5-15.5) % Plt Count (150-450) k/uL Neutrophils # (1.3-7.7) k/uL Lymphocytes # (1.0-4.8) k/uL PT (9.0-12.0) sec Sodium (137-145) mmol/L BUN (9-20) mg/dL Creatinine (0.66-1.25) mg/dL Glucose (74-99) mg/dL POC Glucose (mg/dL) 139 H 168 H 150 H (75-99) mg/dL Calcium (8.4-10.2) mg/dL 05/14/16 05/14/16 05/14/16 Range/Units 04:54 04:55 04:55 RBC (4.30-5.90) m/uL Hgb (13.0-17.5) gm/dL Hct (39.0-53.0) % MCHC (31.0-37.0) g/dL RDW (11.5-15.5) % Plt Count (150-450) k/uL Neutrophils # (1.3-7.7) k/uL Lymphocytes # (1.0-4.8) k/uL PT 25.9 H (9.0-12.0) sec Sodium 136 L (137-145) mmol/L BUN 105 H* (9-20) mg/dL Creatinine 2.10 H (0.66-1.25) mg/dL Glucose 124 H (74-99) mg/dL POC Glucose (mg/dL) 134 H (75-99) mg/dL Calcium 8.2 L (8.4-10.2) mg/dL 05/14/16 Range/Units 04:55 RBC 3.31 L (4.30-5.90) m/uL Hgb 8.9 L (13.0-17.5) gm/dL Hct 29.9 L (39.0-53.0) % MCHC 29.9 L (31.0-37.0) g/dL RDW 24.5 H (11.5-15.5) % Plt Count 83 L (150-450) k/uL Neutrophils # 8.1 H (1.3-7.7) k/uL Lymphocytes # 0.4 L (1.0-4.8) k/uL PT (9.0-12.0) sec Sodium (137-145) mmol/L BUN (9-20) mg/dL Creatinine (0.66-1.25) mg/dL Glucose (74-99) mg/dL POC Glucose (mg/dL) (75-99) mg/dL Calcium (8.4-10.2) mg/dL Microbiology - Last 24 Hours (Table) 05/09/16 05:50 Gram Stain - Final Penis Genital Culture - Final Assessment and Plan Plan: Assessment: #1. Nonoliguric acute kidney injury secondary to ischemic ATN secondary to hypotension. Creatinine 2.1 today. #2. Chronic kidney disease stage IV secondary to solitary right kidney and multiple acute kidney injuries. Baseline creatinine 2 but recently has been in the range of 2.5-3. #3. Systolic CHF with ejection fraction of 30-35%. #4. Anemia. Iron replete. Hemoglobin 8.9 s/p pRBC 05/11 and 05/12. #5. Hypotension. Improved. #6. Elevated BUN related to acute kidney injury. He is currently not on any steroids. Stool for occult blood noted to be positive. #7. Urinary tract infection with urine culture positive for Yi glabrata. Plan: Maintain Aranesp. Encourage oral intake. Maintain Salinas catheter with strict I's and O's. Repeat electrolytes in the morning. Antibiotics per infectious disease recommendations. No need for renal replacement therapy at this time. Will continue to assess on a day-to-day basis.
[2016-05-14] MEDS: MICAFUNGIN 100 MG in SODIUM CHLORIDE 0.9% 100 ML IVPB SCH (11:39)
[2016-05-14] MEDS: CEFEPIME 2 GM in SODIUM CHLORIDE 0.9% 50 ML IVPB SCH ×2 (11:39→23:27)
[2016-05-14 11:44] LABS: Glucose,Whole Blood 157 mg/dL (75-99)
--- NOTE | 2016-05-14 12:56 | PN ---
DATE OF SERVICE: 05/14/2016 Mr. Lam Small is seen, evaluated and examined in the ICU. This patient is a 56-year-old male, seen, evaluated, examined, care plan discussed with the staff as well as present at bedside. Patient has been using his BiPAP machine more regularly. He is in contact isolation for C. difficile. He is breathing more comfortably. He remains on supplemental oxygen currently because of his breakfast. He is off of his BiPAP machine, but he did use last night. His hemodynamic status is stable. Last set of vitals include blood pressure is 110/70, respiratory rate is 20, pulse 92, temperature 97, saturation 95% on 3 L oxygen. HEENT EXAMINATION: Otherwise unremarkable. NECK: Supple. LUNGS: Good air entry bilaterally with decreased air entry at the bases. HEART: Regular rate and rhythm, S1 and S2 audible. Abdomen is soft. NEUROLOGICAL EXAMINATION: Otherwise, awake and alert. Chest x-ray last performed 05/11/2016 reviewed and compared to prior x-ray, revealed cardiomegaly, interstitial edema, bibasilar atelectasis, possible pneumonia cannot be excluded. Ultrasound of the chest performed at the same time. No significant effusion has been demonstrated. Current medications are reviewed include DuoNeb unit dose updraft 4 times a day. Also on amiodarone is 200 mg daily, Pulmicort 2 times a day, Coreg 6.25 b.i.d., cefepime 2 gm q.12, darbepoetin. Also on Neurontin, hydrocortisone 50 mg IV q.8, Lantus. Also on Protonix IV fluid is KVO. Other laboratory data reviewed. White cell count 8,200, hemoglobin of 8.9, hematocrit 29, platelet count of 83,000. PT, INR is 25 and 2.7. BUN is 105, creatinine is 2.1 which is coming down, overall especially remains stable. Culture results and reports are reviewed. The penile culture gram stain normal jeri has been seen. Urine culture is positive for jeremías. Blood cultures no growth so far. On examination, his HEENT examination is otherwise unremarkable. NECK: Supple. Neck veins are prominent. Triple lumen catheter stable. LUNGS: Bilateral good air entry is present with decreased air entry as dictated above. IMPRESSION: 1. Acute on chronic hypercapnic hypoxic respiratory failure. 2. Obesity hypoventilation and obstructive sleep apnea. 3. Sepsis, associated pneumonia, appears to be healthcare associated pneumonia. 4. Chronic renal failure, stage IV to V, being monitored and observed. 5. Atrial fibrillation. 6. Cardiomyopathy with acute on chronic systolic heart failure, ejection fraction of 35% to 40%. 7. Clostridium difficile colitis. PLAN AND RECOMMENDATION: As above. Continue supportive care. Follow clinical course closely. Continue BiPAP machine. Continue broad-spectrum antibiotics. Monitor labs closely. Increase activity as tolerated. Overall prognosis is guarded, but stable. Will follow.
--- NOTE | 2016-05-14 14:53 | PN ---
DATE OF SERVICE: 05/14/2016 This is a 56-year-old white male with a very complex medical history with previous C. difficile, staph, agalactiae bacteremia secondary cellulitis presented to the emergency department after profound unresponsiveness. He was found to have acute on chronic renal failure and what appeared to be sepsis and underlying pneumonia with possible urinary tract infection. At that time he was placed in ICU and was seeing Dr. Chinchilla, Infectious Disease; Dr. Knox, ICU Malted Milk Mixer and Dr. Lorenzo, Lockstitch Zipper Setter. At that time he was felt to be septic with elevated WBC and lactic acid and he was put on empiric antibiotics accordingly. Also he appeared to have anemia, which was probably hemolytic in nature and was given 1 unit of blood with a hemoglobin of 8.2 but still had a fair amount of hypotension and was given another unit of blood and now he is at 8.9. At this point, he has an underlying left lower lobe pneumonia. He also has positive culture of the urine for Yi glabrata and had been started on antifungal medications. His lab work at this time this morning he actually feels better today than he has, he says, in probably 2 months. Better energy level. His says he is well oriented to person, place, and thing and wants to get going with rehab. WBCs today is 8.8 which is 3.31 RBC and 8.9 hematocrit, 83,000 platelet count. His INR staying at 2.7. He has a sodium of 136, 4.4 potassium, 105 BUN with a 2.1 creatinine. His blood sugar is under very good control at this time at 174, 139, 168, 150, 134 on Lantus split dose 30-30 a.m. and p.m. subcutaneous. His medication regimens are staying at the DuoNeb inhalation for shortness of breath 4 times a day, amiodarone 200 mg b.i.d., Pulmicort 0.5 updrafts twice a day, Coreg 6.25 mg b.i.d. He is on cefepime 2 grams every 12 hours. He is on Procrit 40 mg subcu every 7 days, Neurontin 100 mg t.i.d. His Cortef is 50 mg q.12 and Lantus insulin is 20 mg subcutaneous in the morning and p.m. and he has insulin to scale. He is on micafungin sodium 100 daily q.12, Protonix 40 daily. REVIEW OF SYSTEMS: CARDIOPULMONARY: No shortness of breath, no chest pain. No cough. GI: No hematemesis, melena, hematochezia. No constipation. He had nonspecific abdominal pain yesterday after a drink that he had. Other than that it has been negative. : He does have a Salinas catheter and charge account authorizer follows him accordingly. INTEGUMENTARY: He has a large irritation and sores on his buttocks bilaterally with infectious origin. Today, his blood pressure is 122/80, heart rates in the 80s. ENT shows a dry mouth. Face is normal. Neck is supple with midline trachea. No carotid bruits. CHEST: Essentially clear to auscultation. No rales no rhonchi. HEART: Regular irregular on monitor, of chronic atrial fibrillation. ABDOMEN: Obese, soft. No generalized tenderness. No grossly palpable organomegaly or masses. LOWER EXTREMITIES: Swelling has gone down tremendously with wraps on his legs. : Buttocks irritation was unable to be examined today. PSYCHIATRIC: He is well oriented to person, place, and thing. He is not depressed and actually feels very good today and he says that the pain in his legs is much less since starting the Neurontin 100 mg 3 times a day that was started yesterday. Diet, he is on a low potassium, low phosphorus with modifications to carbohydrates because of his diabetes and chronic renal failure. Physical therapy started working with his upper arms. He is on supplemental Karlos. His CODE STATUS is he is a FULL CODE. His rehab potential is probable with a fair prognosis. He continues on BiPAP ventilation and oxygen during the day at 2 liters. Microbiology today still shows the Yi. No growth the blood x144 hours. His urine culture still is Yi glabrata. DIAGNOSES: 1. Sepsis. 2. Pneumonia, left lower lobe. 3. Acute on chronic renal failure. 4. Systolic congestive heart failure with ejection fracture 30 to 35%. 5. Anemia, which is probably hemolytic in nature. 6. Resolving hypotension. 7. Urinary tract infection with Yi glabrata. 8. Chronic atrial fibrillation. 9. History of cardiomyopathy. 10. Type 2 diabetes with insulin support. 11. Improving renal failure. 12. Acute on chronic hypoxic respiratory failure. 13. End-stage chronic renal failure, chronic kidney disease IV. 14. Mild to moderate pulmonary hypertension. RVSP 46. 15. History of chronic obstructive pulmonary disease. 16. History of strep pyogenes bacteremia. PLAN: We will continue the IV antibiotics. His adrenal insufficiency is being treated with Cortef. We decreased it to 50 mg b.i.d. Continue on a renal diet. Continue him on his BiPAP and waiting to FiO2 greater than 85. Continue on IV antibiotics cefepime and micafungin. Protonix for GI prophylaxis. Use of his DuoNeb and Pulmicort. media monitor. He is on physical therapy and occupational therapy and his prognosis is still guarded.
--- NOTE | 2016-05-14 15:52 | PN ---
Mr. Small is a 56-year-old male with known history of chronic atrial fibrillation, diabetes, renal failure. He is feeling much better today. His breathing is stable. He denies any symptoms of dizziness. No palpitation. His appetite is stable. His mental status has improved. He denies any nausea or vomiting. He continues to be on Coreg 6.25 mg twice a day that was increased yesterday and amiodarone 200 mg daily. PHYSICAL EXAMINATION: Blood pressure 111/70 with a heart in the 90s. LUNGS: No wheezes. HEART: Irregularly irregular. S1, S2, no S3, no rub. ABDOMEN: Soft, obese, nontender. EXTREMITIES: Manjit wrapping in place with chronic stasis. Lab data revealed a hemoglobin of 8.9. BUN, creatinine of 105 and 2.1, improving gradually. His INR is 2.7. IMPRESSION: 1. Atrial fibrillation with a controlled ventricular response, stable. 2. Morbid obesity. 3. Cardiomyopathy. 4. Renal failure, improving. 5. Pneumonia. 6. Diabetes. RECOMMENDATION: From the cardiac standpoint, will continue present therapy. Follow his renal function. If he is stable, I will stop his amiodarone. We will continue to follow his renal function as well as his INR.
[2016-05-14 16:36] LABS: Glucose,Whole Blood 193 mg/dL (75-99)
[2016-05-14] MEDS: SODIUM CHLORIDE 0.9% 1,000 ML IV SCH (18:45)
[2016-05-14 20:41] LABS: Glucose,Whole Blood 171 mg/dL (75-99)
--- NOTE | 2016-05-14 22:35 | PN ---
DATE OF SERVICE: 05/14/2016 Reason for follow-up is pneumonia, urinary tract infection and sacral pressure ulcer. INTERVAL HISTORY: The patient is afebrile. He has been breathing more comfortably. Denies significant chest pain. Occasional cough. No abdominal pain. No pain in his sacral area. On examination, blood pressure is 122/84 with a pulse of 85, temperature 96.1. He is 97% on 2 liters nasal cannula. General description is a middle-aged male, lying in bed in no distress. RESPIRATORY SYSTEM: Unlabored breathing with decreased breath sounds at the base. No wheeze. HEART: S1, S2 regular rate and rhythm. ABDOMEN: soft, no tenderness. EXTREMITIES: Chronic swelling. No cellulitis. LABS: Hemoglobin is 8.9, white count 8.9 with a BUN of 40, creatinine 2.10. DIAGNOSTIC IMPRESSION AND PLAN: 1. Patient admitted to hospital with sepsis and did have a low grade fever and question of pneumonia. The patient has felt overall clinical improvement. His blood pressure has been negative. Unable to provide for any sputum. planning to finish therapy with oral antibiotics. 2. Patient with Yi glabrata urinary tract infection, currently on Micafungin. 3. Sacral pressure ulcer. Continue Aquacel Silver dressing and keep the area off pressure. MTDD
[2016-05-15 06:05] LABS: Glucose,Whole Blood 143 mg/dL (75-99)
[2016-05-15 06:53] LABS: Calcium 8.2 mg/dL (8.4-10.2); Potassium 4.4 mmol/L (3.5-5.1)
[2016-05-15 06:57] LABS: INR 2.1 (<1.1); Prothrombin Time 19.8 sec (9.0-12.0)
[2016-05-15] MEDS: INSULIN LISPRO (humaLOG) 300 UNIT/3 ML VIAL SQ SCH ×3 (07:50→17:56)
[2016-05-15] MEDS: CARVEDILOL 6.25 MG TAB PO SCH ×2 (07:50→17:55)
[2016-05-15] MEDS: AMIODARONE 200 MG TAB PO SCH (08:25)
[2016-05-15] MEDS: GABAPENTIN 100 MG CAP PO SCH ×3 (08:26→21:00)
[2016-05-15] MEDS: HYDROCORTISONE SUCCINATE 100 MG/2 ML VIAL IV SCH ×2 (08:26→21:00)
[2016-05-15] MEDS: PANTOPRAZOLE 40 MG TABLET PO SCH (08:26)
[2016-05-15] MEDS: IPRATROPIUM-ALBUTEROL 3 ML NEB INHALATION SCH ×4 (08:35→20:29)
[2016-05-15] MEDS: BUDESONIDE 0.5 MG/2 ML NEBU INHALATION SCH ×2 (08:35→20:29)
[2016-05-15 12:05] LABS: Glucose,Whole Blood 133 mg/dL (75-99)
--- NOTE | 2016-05-15 12:30 | P.PN ---
Subjective Principal diagnosis: Septic shock Patient seen and examined. Patient states he is feeling a little "down." He cannot further qualify why he is feeling this way. He states he did wear the BiPAP overnight. He denies fevers and chills. He denies pain. Objective - Vital Signs Vital signs: Vital Signs Temp 96.8 F L 05/15/16 04:00 Pulse 88 05/15/16 12:17 Resp 18 05/15/16 04:00 BP 117/66 05/15/16 04:00 Pulse Ox 98 05/15/16 04:00 Intake & Output 05/14/16 05/15/16 05/15/16 18:59 06:59 18:59 Intake Total 1090 600 600 Output Total 800 1400 Balance 290 -800 600 Weight 175.9 kg 179.3 kg Intake: Intake, IV Titration 250 240 Amount Cefepime 2 gm In Sodium 50 Chloride 0.9% 50 ml @ 100 mls/hr IVPB Q12H [facility] Rx# :[id number] Micafungin 100 mg In 100 Sodium Chloride 0.9% 100 ml @ 100 mls/hr IVPB DAILY@1200 [facility] Rx#: [id number] Sodium Chloride 0.9% 1, 100 240 000 ml @ 20 mls/hr IV . Q24H [facility] Rx#:[id number] Oral 840 600 360 Output: Urine 800 1400 Other: Voiding Method Indwelling Catheter Indwelling Catheter # Bowel Movements 1 1 ABP, PAP, CO, CI - Last Documented Arterial Blood Pressure 128/58 - Exam Gen: Alert and oriented 3, currently on nasal cannula CV: RRR, s1/s2 Lungs: Diminished breath sounds bilaterally Abd: soft, NT/ND, +BS Ext: +2-3 pitting edema, chronic venous stasis - Labs CBC & Chem 7: 05/14/16 04:55 05/15/16 06:14 Labs: Abnormal Lab Results - Last 24 Hours (Table) 05/14/16 05/14/16 05/15/16 Range/Units 16:31 20:40 06:02 PT (9.0-12.0) sec Sodium (137-145) mmol/L BUN (9-20) mg/dL Creatinine (0.66-1.25) mg/dL Glucose (74-99) mg/dL POC Glucose (mg/dL) 193 H 171 H 143 H (75-99) mg/dL Calcium (8.4-10.2) mg/dL 05/15/16 05/15/16 05/15/16 Range/Units 06:14 06:14 11:45 PT 19.8 H (9.0-12.0) sec Sodium 134 L (137-145) mmol/L BUN 108 H* (9-20) mg/dL Creatinine 2.11 H (0.66-1.25) mg/dL Glucose 125 H (74-99) mg/dL POC Glucose (mg/dL) 133 H (75-99) mg/dL Calcium 8.2 L (8.4-10.2) mg/dL Microbiology - Last 24 Hours (Table) 05/09/16 05:50 Gram Stain - Final Penis Genital Culture - Final Assessment and Plan Plan: Acute on chronic hypoxic respiratory failure HCAP Acute on chronic renal failure, CKD 4 Septic shock, resolved Afib with CVR UTI POA, Yi glabrata Systolic CHF, EF 35-40% Mild to moderate pulmonary hypertension, RVSP 46 mmHg Recent C diff colitis Bicytopenia NSTEMI Coumadin coagulopathy Hyponatremia Hx strep pyogenes bacteremia AECOPD GUICHO/OHS, on bipap Hx tobacco abuse DM2 PCM Morbid obesity Continue Bipap support, wean FiO2 for sat > or = 88% ABX: Continue Cefepime, Micafungin added per ID Continue subcu heparin, monitor INR Nephro and cardio recommendations 0.9NS @ 20 cc/hr Protonix for GI prophylaxis Continue Duonebs and Pulmicort Continue SoluCortef - taper Lasix per nephrology Ultrasound of the chest reveals no evidence of pleural effusion. Monitor renal function PT and OT Discontinue CVC today, this is discussed with Dr. Chinchilla who is recommending oral ABX
[2016-05-15] MEDS: INSULIN GLARGINE 100 UNIT/ML 10 ML VIAL SQ SCH ×2 (13:06→21:00)
[2016-05-15] MEDS: MICAFUNGIN 100 MG in SODIUM CHLORIDE 0.9% 100 ML IVPB SCH (13:07)
[2016-05-15] MEDS: CEFEPIME 2 GM in SODIUM CHLORIDE 0.9% 50 ML IVPB SCH ×2 (14:42→23:19)
--- NOTE | 2016-05-15 14:46 | PN ---
Lam Small is a 56-year-old white male with very, very complex medical history of previous C. difficile and Staph agalactiae bacteremia secondary cellulitis presented to the emergency room after profound unresponsiveness. At that time, he was found to be in acute on chronic renal failure and severely hypotensive and with an underlying pneumonia and possible urinary tract infection. At that period of time, he was placed in the ICU. He saw Dr. Ramos from infectious disease, Dr. Knox ICU digital publishing specialist and Dr. Lorenzo the public health clinical nurse specialist and then later followed up with Dr. Davies with cardiology. At that time, he had an elevated white count. His lactic acid was elevated. He was empirically started on antibiotics. He also appeared to be anemic and had a hemoglobin that was 7.4 at which time he was given 1 unit of blood. He went up to 7.2. He continued to stay very hypotensive and so he was given another unit of blood. It went up to 8.9 and blood pressure nayan. He was taken off beta blockers and hypertensive medications and his Lasix at that time continued to in moderately severe acute on chronic renal failure with ATN and it was felt that it would be better to hold off on Lasix at that time also on hypotensive medications of any kind. His urine came back positive for Jeremías glabrata. He was started on antifungal medication per Dr. Chinchilla. This morning, he continues to feel quite well. His says this is the best he has felt in quite a while. No new CBC, but his INR was 2.1 with creatinine of 2.11 and BUN is at 108. Blood sugars are within normal limits in the 130 to 150 range across the board on Lantus 20 b.i.d. From a microbiology point of view he has had no blood culture x ( ) hours and urine culture remains the same. His medication list at this time: 1. DuoNeb inhalation 4 times a day. 2. Amaryl 200 b.i.d. 3. Pulmicort 0.2 updrafts twice a day. 4. Coreg 6.25 mg b.i.d. 5. He is on cefepime 2 grams every 12 hours IV. 6. Procrit 40 subcutaneous every 7 days. 7. Neurontin 100 mg b.i.d. 8. Cortef 50/12 a day. 9. Lantus insulin 20 mg subcutaneous in the morning and p.m. 10. Insulin to scale a.c. meals. 11. He is on Micafungin sodium 100 mg daily q.12 IV. 12. Protonix. REVIEW OF SYSTEMS: CARDIOPULMONARY: At this time is having no shortness of breath or chest pain, orthopnea, no paroxysmal nocturnal dyspnea. GI: No hematemesis, melena, hematochezia, nonspecific abdominal pain, has resolved. : Salinas catheter in place. INTEGUMENTARY: He has large irritation on post sacral area and he is treated with ( ) which is felt to possibly be a bacterial infection. He was treated with Aquacel per Dr. Chinchilla. NEUROMUSCULAR: He has pain in his legs from his radicular pain and also from peripheral neuropathy and Neurontin which was started to help tremendously. NEUROMUSCULAR: His strength in his arms are beginning to return, still has absolutely no strength in his lower legs. PSYCHIATRIC: The patient is not depressed today. He is well orientated to person, place, and thing. PHYSICAL EXAMINATION: VITAL SIGNS: Blood pressure today is 110/70, his heart rate is in the 80s, respiratory rate 16, 96.7. His temperature he is at 3 liters per nasal cannula. ENT is within normal limits. Neck is supple with midline trachea. CHEST: Essentially clear. No rhonchi. No rales. HEART: Regular rhythm, chronic atrial fibrillation, he has obesity, very difficult to palpate organomegaly or masses. Lower extremity swellings have gone down tremendously with wraps. He does have irritation and the redness is severe venous insufficiency. I do not see any open lesions on his legs, buttocks, irritation bilaterally ( ) patches occurred. MUSCULOSKELETAL: Decreased strength in his arms and legs, but he can move his arms much better today than before. PSYCHIATRIC: Again he is well oriented to person, place, and thing. He is not depressed. He actually feels very good. He says that the pain in his legs is much less on the Neurontin and he said he begins to be ready for rehab. SKIN: Changes as described above. Diet: He is on a low potassium, low phosphorus moderate carbohydrates for his diabetes. We feel if physical therapy starts, we will see with his upper arms. He is also on supplementary Karlos. His CODE STATUS is FULL. His rehab potential probable with a fair prognosis. He continues on BiPAP at night and oxygen weaned to 3 liters, microscopically again shows just a jeremías no growth by 144 hours, blood culture, his urine cultures, Jeremías glabrata. ASSESSMENT: 1. Sepsis, left lower lobe pneumonia. 2. Acute on chronic renal failure. 3. Systolic congestive heart failure with ejection fraction 30/80. 4. Anemia, which is more probable hemolytic. 5. Resolving hypotension. 6. Urinary tract infection with Jeremías Glabrata. 7. Chronic atrial failure. 8. History of cardiomyopathy with presents. 9. Pulmonary edema. 10. Type 2 diabetes with insulin support improving. 11. Renal failure with acute tubular necrosis. 12. Acute on chronic hypoxic respiratory failure. 13. End-stage chronic renal disease, chronic disease with chronic kidney disease stage IV. 14. Mild to moderate pulmonary hypertension, RVSP is 46. 15. History of chronic obstructive pulmonary disease. 16. History of ( ). PLAN: We will continue the IV antibiotics with hopefully conversion to p.o. by Dr. Chinchilla soon. Continue on Cortef 50 b.i.d., which can probably be converted over to p.o. His renal diet has to continued. BiPAP O2 is to be continued and the use of his DuoNeb, Pulmicort, electronics technician apprentice, his physical therapy and occupational therapy and his prognosis is in end-stage. At this point, we will get the telehealth case manager involved with the possibility of transfer over the next day back to [facility] for rehab. At this time, he is asymptomatic, even though the chest x-ray reveals that there might be cardiomyopathy with pulmonary edema. This is kind of his chronic state. His renal function has improved greatly from 3.1 down to 2.1 and he is quite asymptomatic at the time. Prognosis is guarded.
--- NOTE | 2016-05-15 14:53 | P.PN ---
Subjective Principal diagnosis: Mental status change This is a 56-year-old morbidly obese gentleman with history of chronic atrial fibrillation, renal failure, diabetes, who was initially admitted to the hospital with mental status changes. Vital signs have been stable. INR 2.1 today, BUN 108, creatinine 2.1. Patient was seen and examined today, breathing is stable. Alert and oriented. Continues to be in atrial fibrillation. We will discontinue the amiodarone today. Objective - Vital Signs Vital signs: Vital Signs Temp 96.8 F L 05/15/16 04:00 Pulse 88 05/15/16 12:17 Resp 18 05/15/16 04:00 BP 117/66 05/15/16 04:00 Pulse Ox 98 05/15/16 04:00 Intake & Output 05/14/16 05/15/16 05/15/16 18:59 06:59 18:59 Intake Total 1090 600 880 Output Total 800 1400 Balance 290 -800 880 Weight 175.9 kg 179.3 kg Intake: Intake, IV Titration 250 240 Amount Cefepime 2 gm In Sodium 50 Chloride 0.9% 50 ml @ 100 mls/hr IVPB Q12H [facility]EN Rx# :[id number] Micafungin 100 mg In 100 Sodium Chloride 0.9% 100 ml @ 100 mls/hr IVPB DAILY@1200 STEVEN Rx#: [id number] Sodium Chloride 0.9% 1, 100 240 000 ml @ 20 mls/hr IV . Q24H STEVEN Rx#:[id number] Oral 840 600 640 Output: Urine 800 1400 Other: Voiding Method Indwelling Catheter Indwelling Catheter # Bowel Movements 1 1 ABP, PAP, CO, CI - Last Documented Arterial Blood Pressure 128/58 - Exam PHYSICAL EXAMINATION: HEENT: [Head is atraumatic, normocephalic. Pupils equal, round. Neck is supple. There is no elevated jugular venous pressure.] HEART EXAMINATION: Heart S1 and S2 irregularly irregular CHEST EXAMINATION:[ Lungs are clear to auscultation and precussion. No chest wall tenderness is noted on palpation or with deep breathing.] ABDOMEN: [ Soft, obese, nontender. Bowel sounds are heard. No organomegaly noted ]. EXTREMITIES:[ 1+ peripheral pulses with chronic venous stasis, bilateral Manjit wraps in place. NEUROLOGIC [patient is awake, alert and oriented -3.] . - Labs CBC & Chem 7: 04/02/17 04:55 05/15/16 06:14 Labs: Abnormal Lab Results - Last 24 Hours (Table) 05/14/16 05/14/16 05/15/16 Range/Units 16:31 20:40 06:02 PT (9.0-12.0) sec Sodium (137-145) mmol/L BUN (9-20) mg/dL Creatinine (0.66-1.25) mg/dL Glucose (74-99) mg/dL POC Glucose (mg/dL) 193 H 171 H 143 H (75-99) mg/dL Calcium (8.4-10.2) mg/dL 05/15/16 05/15/16 05/15/16 Range/Units 06:14 06:14 11:45 PT 19.8 H (9.0-12.0) sec Sodium 134 L (137-145) mmol/L BUN 108 H* (9-20) mg/dL Creatinine 2.11 H (0.66-1.25) mg/dL Glucose 125 H (74-99) mg/dL POC Glucose (mg/dL) 133 H (75-99) mg/dL Calcium 8.2 L (8.4-10.2) mg/dL Assessment and Plan (1) Acute on chronic renal failure Status: Acute (2) Sepsis Status: Acute (3) Chronic a-fib Status: Chronic (4) Pulmonary HTN Status: Chronic (5) Diabetes Status: Chronic (6) NICM (nonischemic cardiomyopathy) Status: Chronic Plan: From cardiology's perspective, we'll discontinue the by mouth amiodarone. Check lytes BUN creatinine PT INR in the morning. DNP note has been reviewed, I agree with a documented findings and plan of care. Patient was seen and examined.
--- NOTE | 2016-05-15 15:17 | PN ---
Patient is seen for followup for CKD and acute kidney injury. He was being treated for C. diff colitis, currently he does not had any ongoing diarrhea. He is awake and has been eating and tolerating oral intake. On examination, blood pressure is 117/66, heart rate 77 per minute. He is afebrile. Examination of the heart, S1, S2. Examination of the lungs, decreased breath sounds in the bases. Abdomen is soft, nontender, morbidly obese. Examination of the lower extremities shows chronic skin changes, chronic edema bilaterally. ALLIED HEALTH INSTRUCTOR exam shows patient is moving all 4 extremities. Labs show sodium 134, potassium 4.4, BUN 108, serum creatinine 2.1. Hemoglobin was 8.9 g/dL yesterday. ASSESSMENT: 1. Chronic kidney disease, stage IV, secondary to nephrosclerosis, chronic, cardiorenal syndrome, and solitary kidney. Baseline has been about 2.5 mg/dL. 2. Cardiomyopathy with systolic congestive heart failure with ejection fraction 30% to 35%. 3. Anemia of chronic disease, iron replete. 4. Urinary tract infection with urine culture positive for Yi glabrata. 5. Morbid obesity. 6. Sacral decubitus with local dressings. PLAN: Continue to maintain good oral intake. Repeat labs in a.m.
[2016-05-15 16:30] LABS: Glucose,Whole Blood 172 mg/dL (75-99)
[2016-05-15] MEDS: SODIUM CHLORIDE 0.9% 1,000 ML IV SCH (17:55)
[2016-05-15] MEDS ORDERED: WARFARIN 2 MG TAB PO SCH (18:00)
[2016-05-15 20:37] LABS: Glucose,Whole Blood 164 mg/dL (75-99)
[2016-05-15 23:53] LABS: Glucose,Whole Blood 145 mg/dL (75-99)
[2016-05-16] MEDS: INSULIN LISPRO (humaLOG) 300 UNIT/3 ML VIAL SQ SCH ×4 (00:24→16:46)
[2016-05-16 06:24] LABS: Glucose,Whole Blood 126 mg/dL (75-99)
[2016-05-16 06:35] LABS: Calcium 7.9 mg/dL (8.4-10.2); Potassium 4.4 mmol/L (3.5-5.1)
[2016-05-16] MEDS: CARVEDILOL 6.25 MG TAB PO SCH ×2 (06:35→16:43)
[2016-05-16 06:38] LABS: INR 1.7 (<1.1); Prothrombin Time 16.3 sec (9.0-12.0)
[2016-05-16] MEDS: BUDESONIDE 0.5 MG/2 ML NEBU INHALATION SCH ×2 (07:33→19:56)
[2016-05-16] MEDS: IPRATROPIUM-ALBUTEROL 3 ML NEB INHALATION SCH ×4 (07:33→19:56)
--- NOTE | 2016-05-16 08:08 | PN ---
DATE OF SERVICE: 05/15/2016 Reason for follow-up: 1. Possible pneumonia. 2. UTI. 3. Sacral wound. INTERVAL HISTORY: The patient is afebrile. He has been breathing comfortably. Complains of generalized weakness, but denies significant chest or cough. No pain. No diarrhea. On examination, blood pressure is 119/62 with a pulse of 89, temperature 96.9, he is 93% on 3 liters nasal cannula. General description is a middle-age male lying in bed in no distress. RESPIRATORY SYSTEM: Unlabored breathing with decreased breath sounds at the base. No wheeze. HEART: S1, S2. Regular rate and rhythm. Abdomen soft, no tenderness. LABS: BUN of 108, 2.11. Blood culture has been negative. Sputum not collected. DIAGNOSTIC IMPRESSION AND PLAN: 1. Patient admitted to the hospital with possible sepsis, hypotension multifactorial with concern for pneumonia. Currently on cefepime. Planning to finish therapy with p.o. Avelox for about a week. No need for PICC line and outpatient antibiotic therapy. 2. Patient with catheter associated urinary tract infection, has received about 5 to 6 days of micafungin that will be discontinued at time of discharge. 3. Sacral wound. Continue with Aquacel Silver dressing and keep the area off the pressure. MTDD
[2016-05-16] MEDS: PANTOPRAZOLE 40 MG TABLET PO SCH (08:53)
[2016-05-16] MEDS: GABAPENTIN 100 MG CAP PO SCH ×3 (08:53→21:16)
[2016-05-16] MEDS: INSULIN GLARGINE 100 UNIT/ML 10 ML VIAL SQ SCH ×2 (08:54→21:17)
[2016-05-16] MEDS: HYDROCORTISONE 20 MG TAB PO SCH ×2 (08:56→21:17)
[2016-05-16] MEDS ORDERED: CEFEPIME 1 GM in SODIUM CHLORIDE 0.9% 50 ML IVPB SCH (10:30)
--- NOTE | 2016-05-16 11:11 | PN ---
Lam was seen on 05/16/2016. He is sleepy but arousable. He is not in any respiratory distress. He feels somewhat better overall. On physical examination, his blood pressure 133/53, respiratory rate 18, pulse rate of 78, O2 sat on 3 L by nasal cannula is 97%. HEENT reveals no new changes. Chest is clear. Cardiovascular system reveals an S1, S2. Abdomen is soft. There is 1+ pedal edema. Labs reveal sodium 133, potassium 4.4, chloride 100, bicarb 24, BUN 109, creatinine of 2.09. PT, INR 1.7. IMPRESSION: 1. Acute on chronic hypoxic respiratory failure. 2. Pneumonia. 3. Acute on chronic renal failure. 4. Sepsis with septic shock. 5. Atrial fibrillation with rapid ventricular response. 6. Pulmonary hypertension. PLAN: At this point in time, continue BiPAP, especially at night for GUICHO and obesity hypoventilation syndrome. Continue cefepime and micafungin. Continue subcu heparin and optimize anticoagulation with Coumadin. Depending on how he does, we shall make further changes to his care.
[2016-05-16] MEDS: DARBEPOETIN ALFA 40 MCG/0.4 ML SYRINGE SQ SCH (11:14)
[2016-05-16 11:36] LABS: Glucose,Whole Blood 106 mg/dL (75-99)
--- NOTE | 2016-05-16 11:37 | PN ---
Again this 56-year-old white male with a very complex medical had previous C. difficile on hospitalization, [facility], came [facility]. Also had staph agalactiae bacteremia secondary to cellulitis. Was treated at an [facility] after being an inpatient and presented to the ER with severe unresponsiveness. At that time, he had acute on chronic renal failure, severely hypotensive and underlying pneumonia, possible urinary tract infection. At that time, he was placed in ICU. He was under my care and Dr. Chinchilla, Dr. Knox, Pulmonology specialist, Dr. Lorenzo, life science taxonomist and Dr. Davies. He had an elevated white count, he had lactic acidosis and was put on antibiotics accordingly and vasopressors. He responded. Blood pressure went up, his initial hemoglobin was 7.2, was given a unit of blood and ended up to going up to 8.2. Eventually, he was given one more unit of blood and he went to 8.9. He responded well at that period of time with blood pressure being up into the 110, 120 range. He was then also taken off his beta blockers for a short period of time. He was also found to be atrial fib but in a normal rhythm. He was in acute severe acute on chronic renal failure with a creatinine of 3 and felt by life science taxonomist to have ATN secondary from hypotension but complicated by diabetes and congestive heart failure. His urine came back positive for yi glabrata and he was started on antifungal medication per Dr. Chinchilla. He continued to improve and recently his ( ) was 2.1 from originally 3 with BUN right around 80. His blood sugars are now normal, we had to increase the Lantus 20 mg b.i.d. He is also found to have a fair amount of adrenal insufficiency and responded very well to Cortef 50 mg twice a day. His medication list at this period of time is DuoNeb 4 times a day, updrafts Pulmicort 0.5 daily, Coreg 6.5 daily. He is still on cefepime 2 gm q.12, Procrit 40 mg subQ, Neurontin 500 mg t.i.d., Solu-Cortef 50 mg q. 12, Lantus 20 a.m. and p.m. with insulin to scale. He is on a micafungin, sodium 100 mg IV piggyback q. 12, Protonix 40 mg daily and his warfarin has been changed to 5 mg from 2 mg. His amiodarone was recently DC'd by Cardiology. REVIEW OF SYSTEMS: ENT: No problems with his mouth, his face. His hearing has been fine. He is not having a problem swallowing. CARDIOPULMONARY: No shortness of breath. No chest pain, no orthopnea or paroxysmal nocturnal dyspnea. GI: No hematemesis, melena, hematochezia. He has nonspecific abdominal pain, which has resolved. Of course, he has his morbid obesity, Salinas catheter in place. INTEGUMENTARY: Has a large irritation on his bilateral sacral area and also on his left knee. We felt which was probably bacteremic, even though the cultures came back negative. It has been treated with IV antibiotics and Aquacel per Dr. Chinchilla. He has pain in his knee from his radicular pain from peripheral neuropathy and he is on Neurontin for that. NEUROMUSCULAR: He has strength in his arms, his legs which are minimal. He has also a tremendous amount of strength in his lower legs. PSYCHIATRIC: He is not depressed, but very anxious to move on. At this point no family history, no social history to add from this point. Vital signs show a blood pressure of 110/60, heart rate is in 80s, respiratory rate is 16. Temperature is 97.6. He is on 3 L of O2. Chest is essentially clear to auscultation. ENT is actually within normal limits. His heart is regular, irregular of chronic atrial fib. No S2, S3 split, no gallop. Abdomen is soft, nontender, with no organomegaly or masses. No open abrasions and no redness on the lateral part of his abdomen which was early cellulitic. MUSCULOSKELETAL: He has decreased strength in his right arm and left arm and absolutely no strength in his left leg and left arm. PSYCHIATRIC: Again he is well oriented to person, place, and thing. Does not appear depressed. He answers all questions. He does say that his leg pain is much less since being on Neurontin. Skin changes as described above. DIET: He is on a low-potassium, low-phosphorus, moderate carbohydrate for both of the renal and diabetic diet. Physical Therapy is to start. He is also in [place]. His CODE STATUS is FULL. His rehab potential is fair at this time. He continues from BiPAP to now 202. He does wear a CPAP machine at nighttime. His blood cultures were described going into 7 days now of being negative, but he does have a positive urine culture. ASSESSMENT: 1. Sepsis with a left lower lobe pneumonia. 2. Adrenal insufficiency, acute on chronic renal failure. 3. Systolic congestive heart failure, ejection fraction of between 30% and 35%. 4. Anemia, which is probably more hemolytic but also secondary from renal failure, unresolved. 5. Hypotension. 6. Urinary tract infection with Yi glabrata. 7. Again chronic atrial fibrillation, which is stable, history of cardiomyopathy, pulmonary edema that has resolved. 8. Type 2 diabetes with insulin support. 9. Renal failure with acute tubular necrosis. 10. Acute on chronic hypoxic respiratory failure, end-stage. 11. Chronic renal disease with a CKD stage IV. 12. Mild to moderate pulmonary hypertension, RVSP is 46. 13. Chronic obstructive pulmonary disease. PLAN: Continue with the same IV antibiotics per Dr. Chinchilla to decide on how to treat this p.o. or IV Cortef 20 b.i.d. Because his INR at this time was only 1.7, he was put on 5 mg of Coumadin at night. He is to continue with his renal carbohydrate diet. His BiPAP and O2 is to be continued. His DuoNeb, Pulmicort, cardio monitor is there. Hopefully, Physical Therapy and Occupational Therapy will get in today. At this point, still awaiting rehabilitation case coordinator to get a hold of me. I left another message with nursing at this time. He is getting close to transfer back to [facility]. I think he would do well with aggressive physical therapy. His prognosis is guarded.
[2016-05-16] MEDS: MICAFUNGIN 100 MG in SODIUM CHLORIDE 0.9% 100 ML IVPB SCH (12:24)
--- NOTE | 2016-05-16 14:01 | P.PN ---
Subjective Principal diagnosis: Mental status change This is a 56-year-old morbidly obese gentleman with history of chronic atrial fibrillation, renal failure, diabetes, who was initially admitted to the hospital with mental status changes. Vital signs have been stable. INR 1.7 today, BUN 109, creatinine 2.09. Patient was seen and examined today, breathing is stable. Alert and oriented. Continues to be in atrial fibrillation. Blood pressure this morning 106/60 with a heart rate in the 70s. Objective - Vital Signs Vital signs: Vital Signs Temp 97.2 F L 05/16/16 11:16 Pulse 89 05/16/16 11:45 Resp 20 05/16/16 11:16 BP 106/59 05/16/16 11:16 Pulse Ox 95 05/16/16 11:16 Intake & Output 05/15/16 05/16/16 05/16/16 18:59 06:59 18:59 Intake Total 1500 170 300 Output Total 575 2100 Balance 925 -1930 300 Weight 179.5 kg Intake: Intake, IV Titration 440 170 60 Amount Cefepime 2 gm In Sodium 50 Chloride 0.9% 50 ml @ 100 mls/hr IVPB Q12H [facility]EVEN Rx# :[id number] Sodium Chloride 0.9% 1, 440 120 60 000 ml @ 20 mls/hr IV . Q24H STEVEN Rx#:[id number] Oral 1060 240 Output: Urine 575 2100 Uretheral (Salinas) 2100 Other: Voiding Method Indwelling Catheter Indwelling Catheter Indwelling Catheter # Emeses 2 ABP, PAP, CO, CI - Last Documented Arterial Blood Pressure 128/58 - Exam PHYSICAL EXAMINATION: HEENT: [Head is atraumatic, normocephalic. Pupils equal, round. Neck is supple. There is no elevated jugular venous pressure.] HEART EXAMINATION: Heart S1 and S2 irregularly irregular CHEST EXAMINATION: Lungs are clear to auscultation and precussion. No chest wall tenderness is noted on palpation or with deep breathing. ABDOMEN: Soft, obese, nontender. Bowel sounds are heard. No organomegaly noted. EXTREMITIES: 1+ peripheral pulses with chronic venous stasis, bilateral Manjit wraps in place. NEUROLOGIC patient is awake, alert and oriented -3. . - Labs CBC & Chem 7: 05/14/16 04:55 05/16/16 05:42 Labs: Abnormal Lab Results - Last 24 Hours (Table) 05/15/16 05/15/16 05/15/16 Range/Units 16:23 20:34 23:51 PT (9.0-12.0) sec Sodium (137-145) mmol/L BUN (9-20) mg/dL Creatinine (0.66-1.25) mg/dL Glucose (74-99) mg/dL POC Glucose (mg/dL) 172 H 164 H 145 H (75-99) mg/dL Calcium (8.4-10.2) mg/dL 05/16/16 05/16/16 05/16/16 Range/Units 05:42 05:42 06:15 PT 16.3 H (9.0-12.0) sec Sodium 133 L (137-145) mmol/L BUN 109 H* (9-20) mg/dL Creatinine 2.09 H (0.66-1.25) mg/dL Glucose 114 H (74-99) mg/dL POC Glucose (mg/dL) 126 H (75-99) mg/dL Calcium 7.9 L (8.4-10.2) mg/dL 05/16/16 Range/Units 11:21 PT (9.0-12.0) sec Sodium (137-145) mmol/L BUN (9-20) mg/dL Creatinine (0.66-1.25) mg/dL Glucose (74-99) mg/dL POC Glucose (mg/dL) 106 H (75-99) mg/dL Calcium (8.4-10.2) mg/dL Assessment and Plan (1) Acute on chronic renal failure Status: Acute (2) Sepsis Status: Acute (3) Chronic a-fib Status: Chronic (4) Pulmonary HTN Status: Chronic (5) Diabetes Status: Chronic (6) NICM (nonischemic cardiomyopathy) Status: Chronic Plan: From cardiology's perspective, we will continue current medications. We will follow this patient with you now on an as-needed basis only, please don't hesitate to call with any questions. DNP note has been reviewed, I agree with a documented findings and plan of care. Patient was seen and examined.
[2016-05-16] MEDS: COLLAGENASE 250 UNIT/GM OINTMENT 30 GM TUBE TOPICAL SCH ×2 (14:53→21:17)
[2016-05-16] MEDS: SODIUM CHLORIDE 0.9% 1,000 ML IV SCH (16:46)
[2016-05-16 16:49] LABS: Glucose,Whole Blood 88 mg/dL (75-99)
[2016-05-16] MEDS ORDERED: WARFARIN 5 MG TAB PO SCH (18:00)
--- NOTE | 2016-05-16 20:14 | PN ---
Patient is seen for follow-up for CKD and acute kidney injury. His renal function has been fairly stable for the last few days with creatinine staying at about 2 mg/dL. Patient has an indwelling Salinas catheter. 24-hour urine output for 2.6 liters. On examination, blood pressure is 100/61, heart rate 84 per minute. The patient is afebrile. Examination of the heart S1 and S2. Examination of the lungs: Decreased breath sounds in bases. ABDOMEN: Soft, morbidly obese. Examination of lower extremities shows bilateral extremities to be currently wrapped with significant chronic skin changes and edema bilaterally which seems to be stable at this time. Labs show serum creatinine 2.09, BUN 109, sodium 133, potassium 4.4. Calcium 7.9. ASSESSMENT: 1. Chronic kidney disease, NKF stage IV, secondary to nephrosclerosis and solitary kidney and an element of cardiorenal syndrome. Baseline about 2.5 mg/dL. 2. Cardiomyopathy, systolic heart failure, ejection fraction 30% to 35%, currently stable. 3. Anemia of chronic disease. No iron deficiency noted. 4. Urinary tract infection. Urine culture positive for Yi glabrata. 5. Morbid obesity. 6. Sacral decub, currently maintained with local dressings. 7. Chronic atrial fibrillation, maintained on anticoagulation. PLAN: No changes from nephrology standpoint.
[2016-05-16 21:02] LABS: Glucose,Whole Blood 117 mg/dL (75-99)
[2016-05-16 23:49] LABS: Glucose,Whole Blood 104 mg/dL (75-99)
[2016-05-17] MEDS: INSULIN LISPRO (humaLOG) 300 UNIT/3 ML VIAL SQ SCH ×5 (00:31→21:13)
[2016-05-17 05:48] LABS: Glucose,Whole Blood 118 mg/dL (75-99)
[2016-05-17] MEDS: CARVEDILOL 6.25 MG TAB PO SCH ×2 (06:14→18:02)
[2016-05-17] MEDS: GABAPENTIN 100 MG CAP PO SCH ×3 (07:54→21:13)
[2016-05-17] MEDS: INSULIN GLARGINE 100 UNIT/ML 10 ML VIAL SQ SCH ×2 (07:55→21:13)
[2016-05-17] MEDS: HYDROCORTISONE 20 MG TAB PO SCH ×2 (07:55→21:13)
[2016-05-17] MEDS: PANTOPRAZOLE 40 MG TABLET PO SCH (07:55)
[2016-05-17] MEDS: BUDESONIDE 0.5 MG/2 ML NEBU INHALATION SCH ×2 (08:59→20:44)
[2016-05-17] MEDS: IPRATROPIUM-ALBUTEROL 3 ML NEB INHALATION SCH ×4 (08:59→20:44)
--- NOTE | 2016-05-17 09:10 | PN ---
DATE OF SERVICE: . REASON FOR FOLLOWUP: 1. Pneumonia. 2. UTI. 3. Sacral wound. INTERVAL HISTORY: The patient is afebrile. He has been breathing comfortably. Denies significant chest pain. Occasional cough. No abdominal pain and no diarrhea. On examination, blood pressure is 100/61 with the pulse of 84, temperature 98. He is 97% on 3 L nasal cannula. General description is a middle-age male lying in bed in no distress. RESPIRATORY SYSTEM: Unlabored breathing. Some decreased breath sounds at the bases. No wheeze. HEART: S1, S2. Regular rate and rhythm. ABDOMEN: Soft. No tenderness. Examination of sacral wound shows overall wound has more slough tissue no surrounding erythema. LABS: BUN is 109 with a creatinine 2.09. DIAGNOSTIC IMPRESSION AND PLAN: 1. Patient admitted to the hospital with sepsis with a question of possible pneumonia that has been adequately treated. Will go ahead and discontinue cefepime as underlying infection adequatly treated. 2. Urinary tract infection. Urine has been cultured with Yi glabrata. Micafungin will be discontinued at time of discharge. 3. The patient with stage IV sacral pressure ulcer now with more necrotic tissue that will benefit from surgical debridement. Surgery should be consulted. Local wound care will be switched over to Santyl. Discontinue the Aquacel Silver. MTDD
--- NOTE | 2016-05-17 10:27 | CDI ---
In responding to this query, please exercise your independent professional judgment. The [facility] Coding Staff and Clinical Documentation Specialists appreciate your assistance in clarifying documentation, maintaining compliance with coding guidelines, accurately documenting patients condition and capturing severity of illness. The fact that a question is asked does not imply that any particular answer is desired or expected. Communication forms are a method of clarifying documentation and are not made part of the Legal Health Record. Thank you in advance for your clarification. Last Revision, December 2014 Wili Lowery [address] [place] [address] Documentation Clarification Form Date: 05/17/2016 10:16:00 AM From: Beronica Vences CCS, CCDS Admit Date: 05/07/2016 7:20:00 PM Patient Name: Lam Small Visit Number: [id number] Discharge Date: Dr. Jennifer Yousifed: A diagnosis of UTI has been documented in the ED note and in the H&P as present on admission. History/Risk factors: Patient has an indwelling urinary catheter, admitted from [facility]. Per documentation in the ICU nursing notes, this patient was admitted with an indwelling Salinas catheter. Clinical Indicators: Urinalysis on admission: Light red, turbid, 1+ protein, mod blood, Lg Esterase, RBC 136, WBC >182. Urine culture: >100,00 CFU: Yi glabrata Treatment: IV Rocephin, IV Vancomycin, Micafungin Na started on 05/11. In your professional opinion, can you please clarify the etiology of the UTI, if known and was it present on admission? Please include your response in documentation. Salinas catheter Suprapubic catheter UTI not related to catheter/urostomy Other condition, please specify Unable to determine If an infective organism is present, please specify cause and effect relationship if applicable. Please document in your progress notes and discharge summary in order to capture severity of illness and risk of mortality. Include clinical findings that support your diagnosis. FYI: Press F11 to launch patient chart ___x__ Place X here if this finding has no clinical significance, is not applicable or if you are not able to provide any additional documentation. Thank You. KATHLEEN
--- NOTE | 2016-05-17 11:44 | P.PN ---
Progress Note - Text Patient examined at bedside with CORRECTIONS SERGEANT Lauren Marquez. Please see her detailed consult . Morbidly obese male, selective care resident, BMI 50.6 with A fib on Coumadin, Type 2 DM, peripheral neuropathy,COPD requiring home O2 ,hypertension admitted for pulmonary edema. Large sacral pressure ulcer, unstageable. There is ecchymosis, diffuse oozing and maceration involving the entire sacral area. Start enzymatic debridement using Santyl . Hold Coumadin. INR has to be less than 1.5 for debridement in OR. Vitamin K 5 mg po once. OR will be scheduled for Sunday or Sunday. Patient needs to be stable from medical standpoint for general anesthesia. Check Hba1c, prealbumin. Needs air mattress, frequent position change Follow up appointments to be scheduled at [facility] wound care center . Thank you for the consultation
[2016-05-17 11:52] LABS: Glucose,Whole Blood 168 mg/dL (75-99)
[2016-05-17] MEDS: COLLAGENASE 250 UNIT/GM OINTMENT 30 GM TUBE TOPICAL SCH (11:56)
--- NOTE | 2016-05-17 11:57 | PN ---
A 56-year-old white male who was admitted with very complex medical history, previous C. difficile on previous hospitalization, was discharged to a alf came back with staph ( ) bacteremia secondary to cellulitis. He was at that period of time transferred from the [facility] came to the emergency room unresponsive. At that time he had acute on chronic renal failure with severe hypotension and underlying pneumonia. He also had a urinary tract infection and was placed in ICU. At that time, he was under my care, Dr. Chinchilla, infectious disease; Dr. Knox, art glass setter; Dr. Lorenzo, feather separator; and Dr. Davies. He had an elevated white count and he had lactic acidosis and was put on antibiotics accordingly along with vasopressors. His blood pressure responded quite nicely. Unfortunately, his hemoglobin was at 7.2. He was given a unit of blood, which was followed by another unit of blood and then finally got up his hemoglobin to 8.9. Over the next small period of time, he responded with elevation of blood pressure is 110 to 120 with the use of vasopressors. He was also found to be in atrial fib continuously, but he had a normal rhythm and because of his hypotension beta blockers had been discontinued. He has had an acute severe renal failure episode of ATN with a creatinine up in the 3s and then decreased and that is now down into the 2s after appropriate treatment with nephrology. His urine culture came back for Yi glabrata and he had been started on antifungal. He continues to improve. At this period of time, he feels quite well. His blood sugars were high due to steroids, which we have decreased tremendously and he was put on Lantus 40 mg b.i.d. and his adrenal insufficiency responded well to 50 mg of Cortef q.8 hours, which has now been decreased to once daily. His medications this time is still DuoNeb 4 times a day, updrafts with Pulmicort 0.5. He is on Coreg 6.5 daily. He has been taken off cefepime IV. He is on Procrit 40 mg subcu daily, Neurontin 100 mg 3 times a day, Solu-Cortef is now decreased to 50 mg a day, Lantus 20 mg b.i.d., micafungin sodium 100 mg IV piggyback q.12, Protonix 40 mg a day, warfarin has been changed to 5 mg and his amiodarone has been discontinued. REVIEW OF SYSTEMS: ENT: He is having no problems with his mouth or his face. His hearing is okay. He is not having any problems with swallowing. CARDIOPULMONARY: He is having no shortness of breath. No chest pain, orthopnea or paroxysmal nocturnal dyspnea. GI: No hematemesis, melena, hematochezia. He has nonspecific abdominal pain and of course he has morbid obesity. : He has a [place] catheter in place. INTEGUMENTARY: He has bilateral sacral area irritation and also with some pain. He has been bacteremic from it before has been on IV medication. He has got numbness and tingling in his legs from moderately severe peripheral neuropathy from diabetes. NEUROMUSCULAR: He has decreased strength in his arms and his legs with absolutely no strength to move his legs actively. His arm strength is slowly returning. PSYCHIATRIC: He is not depressed, but he is very anxious to move on and states he wants to become more aggressive with physical therapy. From a family history point of view, there is nothing to add. SOCIAL HISTORY: He is a long-time smoker, still was smoking up to 10 cigarettes a day before admission into [facility]. He lives with his who has been very supportive and at his side through the entire situation. VITAL SIGNS: Blood pressure at this times 100/60 with a 85 heart rate, respiratory rate is 16, O2 sats 95% on 3 L and his temperature is 98.1. PSYCHIATRIC: He is alert, well oriented to person, place, and thing, responsive and, but somewhat irritable. EYES: Pupils are equal, round, react to light and accommodation. ENT: He has a dry mouth. There is no ulcers. There is no yeast. Neck is supple. No palpable masses. No carotid bruits. Heart is irregular to regular rate with atrial fibrillation well-controlled, very difficult to actually here on auscultation though. S2, S3 split and absolutely no gallop. CHEST: Essentially clear to auscultation in all planes and recent chest x-ray shows resolving pneumonia. ABDOMEN: Soft, nontender, with no organomegaly but he is morbidly obese. He has no open abrasions. The initial cellulitis that he had on his left abdomen described before I saw him is absolutely not present. MUSCULOSKELETAL: He has got severe stasis dermatitis changes in his lower legs. He had got an abrasion on his left knee. 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 He can lift his arms over his head, but it takes a fair amount of energy. His lower legs, he is unable to move them at all. He does have some foot strength though with dorsiflexion and plantar flexion. On his body, he has had multiple abrasions with skin excoriation. PSYCHIATRIC: Again he is well oriented to person, place, and thing. He does not appear to be depressed. DIET: He is on a low potassium, low phosphorus, moderate carbohydrate diet. Physical therapy is present. He is also on Karlos. His code status is FULL. His rehab potential is fair. He is off BiPAP and on CPAP at this time. He does wear CPAP at night and 3 L of oxygen during the day. Blood cultures continue to be negative. There are no new urine cultures. Lab today shows coag is 1.7, still waiting for the coag to come back this morning. His blood sugars have been in the 100 range. ASSESSMENT: 1. Sepsis with left lower lobe pneumonia. 2. Sacral abrasions and ulcers with decubiti not classified at this period of time. 3. Renal insufficiency secondary to chronic disease. 4. Severe renal failure with acute ATN with classification of ( ) of class 4. 5. Systolic heart failure. He does have an ejection fraction about 30. 6. Anemia of some chronic with acute hemolytic secondary from infection and also secondary from renal failure. 7. Hypotension, which is now resolved. 8. Yi glabrata urinary tract infection being treated with antifungals. 9. Chronic atrial fibrillation, which is stable with some resolving pulmonary edema. 10. Type 2 diabetes with insulin support. 11. Acute on chronic hypoxic respiratory failure. 12. Mild to moderate pulmonary hypertension with RVSP 46. 13. Long-standing history of chronic obstructive pulmonary disease. PLAN: I talked with Dr. Chinchilla this morning. Will get a surgical consult for debridement of the ulcers. His antibiotics have been changed. Will continue with the antifungal and his cefepime has been discontinued. Continue with CPAP and O2 at just at 2 L of nasal cannula during the day. DuoNeb, Pulmicort is to be continued. science analyst can be decreased and he is a MedSurg candidate at this time. Will continue with physical therapy and occupational therapy. At this point, still waiting still direction of transfer to alf. He was at [facility] previously and he would like to go back. His overall prognosis is guarded, but his enthusiasm to improve is present.
[2016-05-17] MEDS: MICAFUNGIN 100 MG in SODIUM CHLORIDE 0.9% 100 ML IVPB SCH (12:25)
--- NOTE | 2016-05-17 12:41 | PN ---
Patient is seen for followup for chronic kidney disease and acute kidney injury. He is currently lying in bed, comfortable. He denies any significant complaints. He is being managed for the sacral ulcer. The patient was evaluated by Surgery and will be most likely scheduled for debridement once the INR is down either Sunday or Sunday. His renal function has been fairly stable with serum creatinine staying at about 2.0 mg/dL. On examination today, patient is comfortable, lying in bed. He is not in any acute distress. Blood pressure 100/60, heart rate 78 per minute. He is afebrile. EXAMINATION OF THE HEART: S1 and S2. EXAMINATION OF THE LUNGS: Decreased breath sounds at bases. ABDOMEN: Soft, morbidly obese. Examination of lower extremities shows chronic skin changes. Right lower extremity, no significant edema is noted. Left lower extremity is currently wrapped. Labs are not available from today. ASSESSMENT: 1. Chronic kidney disease, NKF stage IV, secondary to nephrosclerosis and solitary kidney. Renal function close to baseline. 2. Cardiomyopathy with ejection fraction 30% to 35%. 3. Systolic heart failure, currently stable. 4. Urinary tract infection with urine culture positive for Yi glabrata. 5. Morbid obesity. 6. Sacral decub with significant inflammation. Debridement possibly Sunday or Sunday depending on the INR. 7. Chronic atrial fibrillation, maintained on anticoagulation. 8. Anemia of chronic disease, maintained on Aranesp. PLAN: Continue to encourage increased oral intake. Continue off of IV fluids. Continue with the Aranesp.
--- NOTE | 2016-05-17 12:49 | P.PN ---
Subjective Principal diagnosis: Septic shock Patient seen and examined. Patient states his breathing is doing very well. He has no needs or complaints at this time. His family is at bedside and he is eating lunch. He states he has been wearing the BiPAP every night. Objective - Vital Signs Vital signs: Vital Signs Temp 98.3 F 05/17/16 12:00 Pulse 90 05/17/16 12:00 Resp 18 05/17/16 12:00 BP 118/68 05/17/16 12:00 Pulse Ox 94 L 05/17/16 12:00 Intake & Output 05/16/16 05/17/16 05/17/16 18:59 06:59 18:59 Intake Total 640 780 477 Output Total 601 900 275 Balance 39 -120 202 Weight 178.7 kg 178.7 kg Intake: Intake, IV Titration 280 240 Amount Micafungin 100 mg In 100 Sodium Chloride 0.9% 100 ml @ 100 mls/hr IVPB DAILY@1200 STEVEN Rx#: [id number] Sodium Chloride 0.9% 1, 180 240 000 ml @ 20 mls/hr IV . Q24H STEVEN Rx#:[id number] Oral 360 540 477 Output: Urine 600 900 275 Stool 1 Other: Voiding Method Indwelling Catheter Indwelling Catheter Indwelling Catheter # Voids 3 ABP, PAP, CO, CI - Last Documented Arterial Blood Pressure 128/58 - Exam Gen: Alert and oriented 3, currently on nasal cannula CV: RRR, s1/s2 Lungs: Diminished breath sounds bilaterally Abd: soft, NT/ND, +BS Ext: +2-3 pitting edema, chronic venous stasis - Labs CBC & Chem 7: 05/14/16 04:55 05/16/16 05:42 Labs: Abnormal Lab Results - Last 24 Hours (Table) 05/16/16 05/16/16 05/17/16 Range/Units 20:53 23:47 05:47 POC Glucose (mg/dL) 117 H 104 H 118 H (75-99) mg/dL 05/17/16 Range/Units 11:46 POC Glucose (mg/dL) 168 H (75-99) mg/dL Assessment and Plan Plan: Acute on chronic hypoxic respiratory failure HCAP Acute on chronic renal failure, CKD 4 Septic shock, resolved Afib with CVR UTI POA, Yi glabrata Systolic CHF, EF 35-40% Mild to moderate pulmonary hypertension, RVSP 46 mmHg Recent C diff colitis Bicytopenia NSTEMI Coumadin coagulopathy Hyponatremia Hx strep pyogenes bacteremia AECOPD GUICHO/OHS, on bipap Hx tobacco abuse DM2 PCM Morbid obesity Sacral decubitus ulcer Continue Bipap support, wean FiO2 for sat > or = 88% ABX: Continue Cefepime, Micafungin per ID Continue subcu heparin, monitor INR, Coumadin dosing Nephro and cardio recommendations Protonix for GI prophylaxis Continue Duonebs and Pulmicort Continue SoluCortef - taper Lasix per nephrology Ultrasound of the chest reveals no evidence of pleural effusion. Monitor renal function PT and OT Possible plan for debridement of sacral ulcer Patient's respiratory status is at baseline
--- NOTE | 2016-05-17 14:37 | P.GSCN ---
History of Present Illness Consult date: 05/17/16 Reason for Consult: Surgical eval for debridement of an unstageable large sacral decubitus ulcer History of present illness: This is a 56-year-old morbidly obese limited mobility male patient being seen for a surgical eval for large sacral unstageable decubitus ulcer for possible debridement by the attending. Patient is a [facility] care resident limited mobility developed a large sacral unstageable pressure ulcer. Patient was seen by surgical service Dr. Tompkins. It's noted the patient has the large sacral pressure ulcer unstageable diffuse oozing maceration involving the entire sacral area. No odor noted. Patient is noted to be on Coumadin for chronic persistent atrial fibrillation. On the may was 1.7. The admitting INR on the was 4. Coumadin has been held noted that there is no INR today. Patient additionally is been followed by infectious disease is recommending oral antibiotic. As well as pulmonology service patients being treated for acute on chronic hypoxic respiratory failure hospital acquired pneumonia. Patient is being seen at the bedside with the surgeon who did go over the plan of care with the patient who indicated to the patient that he would need general anesthesia to do debridement of the large sacral decubitus ulcer that the INR needed to be less than 1.5 to have the debridement done in the operating room. Vitamin K was ordered we'll monitor the INR Review of Systems Essentially unremarkable except as mentioned in the present illness Past Medical History Past Medical History: Atrial Fibrillation, Chest Pain / Angina, Heart Failure, Diabetes Mellitus, GERD/Reflux, Hypertension, Musculoskeletal Disorder, Osteoarthritis (OA), Pneumonia, Renal Disease, Rheumatoid Arthritis (RA), Sleep Apnea/CPAP/BIPAP Additional Past Medical History / Comment(s): MUSCLE WEAKNESS, GOUT, pt has 1 kidney History of Any Multi-Drug Resistant Organisms: C-DIFF Year Discovered:: april 21 2016 MDRO Source:: stool Past Surgical History: No Surgical Hx Reported Past Psychological History: Depression Smoking Status: Former smoker Past Alcohol Use History: None Reported Past Drug Use History: None Reported - Past Family History Father Additional Family Medical History / Comment(s): Aneurysm from hernia surgery. Mother Family Medical History: Congestive Heart Failure (CHF), CVA/TIA, Diabetes Mellitus Medications and Allergies Home Medications Medication Instructions Recorded Confirmed Type Acetaminophen Tab [Tylenol Tab] 650 mg PO Q6H PRN 05/07/16 05/07/16 History Allopurinol [Zyloprim] 300 mg PO DAILY@0900 05/07/16 05/07/16 History Amiodarone HCl 400 mg PO BID@0900,209905/07/16 05/07/16 History Benzonatate [Tessalon Perles] 100 mg PO Q8H PRN 05/07/16 05/07/16 History Budesonide [Pulmicort] 0.5 mg INHALATION RT-BID@0900,209905/07/16 05/07/16 History Carvedilol [Coreg] 6.25 mg PO BID@0900,209905/07/16 05/07/16 History Cyclobenzaprine [Flexeril] 5 mg PO Q8H PRN 05/07/16 05/07/16 History Docusate [Colace] 100 mg PO BID PRN 05/07/16 05/07/16 History Famotidine 20 mg PO DAILY@0600 05/07/16 05/07/16 History Fluticasone Nasal [place] [Flonase 2 spray EA NOSTRIL DAILY@0905/07/16 History Nasal [place]] Furosemide [Lasix] 40 mg PO BID@0600,1400 05/07/16 05/07/16 History Gabapentin [Neurontin] 100 mg PO TID@0600,1400,2200 05/07/16 05/07/16 History HYDROcodone/APAP 10-325MG [[place] 1 tab PO Q6H PRN 05/07/16 05/07/16 History 10-325] Insulin Glargine,Hum.rec.anlog 30 unit SQ HS@209905/07/16 05/07/16 History [Basaglar Kwikpen U-100] Insulin Lispro [humaLOG Kwikpen] See Protocol SQ AC-TID 05/07/16 05/07/16 History Ipratropium-Albuterol Nebulize 3 ml INHALATION RT-Q6H PRN 05/07/16 05/07/16 History [Duoneb 0.5 mg-3 mg/3 ml Soln] Lactulose 20 gm PO Q8H PRN 05/07/16 05/07/16 History Tamsulosin HCl [Flomax] 0.4 mg PO HS@2100 05/07/16 05/07/16 History Warfarin [Coumadin] 5 mg PO DAILY@1700 05/07/16 05/07/16 History guaiFENesin SYRUP 100MG/5ML 100 mg PO Q6H PRN 05/07/16 05/07/16 History [Robitussin] Allergies Allergy/AdvReac Type Severity Reaction Status Date / Time No Known Allergies Allergy Unverified 05/07/16 17:45 Surgical - Exam Vital Signs Temp Pulse Resp Pulse Ox 98.4 F 80 20 100 05/07/16 17:32 05/07/16 17:32 05/07/16 17:32 05/07/16 17:32 GENERAL APPEARANCE: 56-year-old male morbidly obese patient is alert, oriented, 3 in no acute distress. Resting in a specialty bed VITAL SIGNS: Reviewed HEENT: Head is normocephalic and atraumatic. Pupils are equal and reactive. The nares are patent. Oropharynx is clear without lesions. NECK: Supple without lymphadenopathy. Traches midline. HEART: S1, S2. Irregular monitor atrial fibrillation rate controlled LUNGS: No crackles or wheezes are heard. Anterior adequate air movement bilaterally nasal cannula at 3 L sats are 94% ABDOMEN: Soft, obese nontender, nondistended with good bowel sounds. No peritoneal signs. No palpable organomegaly or masses. Indwelling catheter in place EXTREMITIES: Normal skin color and turgor. No cyanosis, rash, ulceration, clubbing plus edema to the lower extremities edema. Radial pedal pulses are 2/4 bilaterally. NEUROLOGICAL: No focal deficits. Strength and sensation are grossly intact. Skin unstageable sacral decubitus pressure ulcer diffuse ecchymosis with losing no odor decoration involving the entire sacral area no skin rash noted Results - Labs 05/14/16 04:55 05/16/16 05:42 Abnormal Lab Results - Last 24 Hours (Table) 05/16/16 05/16/16 05/17/16 Range/Units 20:53 23:47 05:47 POC Glucose (mg/dL) 117 H 104 H 118 H (75-99) mg/dL 05/17/16 Range/Units 11:46 POC Glucose (mg/dL) 168 H (75-99) mg/dL Assessment and Plan Plan: Impression Present on admission unstageable large sacral pressure ulcer Chronic persistent atrial fibrillation on anticoagulation Coumadin Chronic debility with limited mobility wheelchair bedbound Present on admission coagulopathy Super morbid obesity BMI 50 Acute on chronic hypoxic respiratory failure suspect due to hospital community acquired pneumonia Acute on chronic renal failure, CKD 4 Present on admission Septic shock, suspect due to healthcare acquired pneumonia resolved Afib with CVR UTI POA, Yi glabrata Acute on chronic Systolic CHF, EF 35-40% Mild to moderate pulmonary hypertension, RVSP 46 mmHg Recent C diff colitis Bicytopenia NSTEMI Coumadin coagulopathy Hyponatremia Hx strep pyogenes bacteremia AECOPD GUICHO/OHS, on bipap Hx tobacco abuse DM2 insulin requiring PCM Plan Patient will need debridement of the unstageable sacral pressure ulcer in the OR using general anesthesia patient will need to be cleared from a medical standpoint before proceeding Will check a prealbumin and hemoglobin A1c level Check an INR Start enzymatic debridement using santyl Vitamin K 5 by mouth now Will be scheduled for Sunday or Sunday when the patient is stable from a medical standpoint for general anesthesia for debridement of the sacral decubitus ulcer Hold Coumadin Will need an air mattress with frequent position changes Post procedure patient will need to be bridged using Lovenox with Coumadin to be restarted Continue nutritional support Thank you for allowing us to participate in the surgical management of your patient and for this kind consultation The above dictated assessment and findings were discussed with dr xiao. Impression and the plan of care have been dictated as directed. Lauren Marquez nurse practitioner acting as a scribe dr tompkins Time with Patient: Greater than 30
[2016-05-17] MEDS ORDERED: PHYTONADIONE ORAL 5 MG/5 ML ORAL.SYRG PO STA (14:38)
[2016-05-17] MEDS: SODIUM CHLORIDE 0.9% 1,000 ML IV SCH (17:06)
[2016-05-17 17:47] LABS: Glucose,Whole Blood 165 mg/dL (75-99)
[2016-05-17 20:33] LABS: Glucose,Whole Blood 145 mg/dL (75-99)
[2016-05-18] MEDS: INSULIN LISPRO (humaLOG) 300 UNIT/3 ML VIAL SQ SCH ×5 (04:06→21:07)
[2016-05-18 04:07] LABS: Glucose,Whole Blood 106 mg/dL (75-99)
--- NOTE | 2016-05-18 05:07 | PN ---
DATE OF SERVICE: 05/17/2016 REASON FOR FOLLOWUP: 1. Possible pneumonia. 2. Possible UTI. 3. Sacral wound. INTERVAL HISTORY: The patient is afebrile, has been breathing comfortably. Patient denies significant chest pain, shortness of breath. Occasional cough. No abdominal pain or any diarrhea. On examination, blood pressure is 118/68 with pulse 84, temperature 98.3. He is 94% on 3 L nasal cannula. General description is a middle-age male lying in bed in no distress. RESPIRATORY SYSTEM: Unlabored breathing. Clear to auscultation anteriorly. HEART: S1, S2. Regular rate and rhythm. ABDOMEN: Soft, no tenderness. LABS: No new labs have been obtained today. DIAGNOSTIC IMPRESSION AND PLAN: 1. Patient admitted to hospital with possible sepsis concern for pneumonia that has been adequately treated, has finished antibiotic therapy. 2. Patient with a positive urine with urine culture showing Yi glabrata has a question of possible colonization or mild urinary tract infection that has been adequately treated. Discontinue micafungin. 3. Patient with sacral wound. Santyl to be continued. Awaiting surgical debridement. Plan of care was discussed with attending physician. KATHLEEN
[2016-05-18 05:47] LABS: Glucose,Whole Blood 98 mg/dL (75-99)
[2016-05-18] MEDS: BUDESONIDE 0.5 MG/2 ML NEBU INHALATION SCH ×2 (07:01→20:41)
[2016-05-18] MEDS: IPRATROPIUM-ALBUTEROL 3 ML NEB INHALATION SCH ×4 (07:01→20:41)
[2016-05-18 07:43] LABS: Glucose,Whole Blood 125 mg/dL (75-99)
[2016-05-18 08:07] LABS: Anisocytosis Marked; CH 27.5; CHCM 29.7; HCT 31.5 % (39.0-53.0); HDW 4.24; HGB 9.7 gm/dL (13.0-17.5); Hypochromasia Marked; MCH 28.6 pg (25.0-35.0); MCHC 30.8 g/dL (31.0-37.0); MCV 92.8 fL (80.0-100.0); Macrocytosis Slight; Mean Platelet Volume 9.9; Microcytosis Slight; Poikilocytosis Moderate; RDW 24.7 % (11.5-15.5); WBC (Perox) 8.17
[2016-05-18] MEDS: HYDROCORTISONE 20 MG TAB PO SCH ×2 (08:48→21:35)
[2016-05-18] MEDS: INSULIN GLARGINE 100 UNIT/ML 10 ML VIAL SQ SCH ×2 (08:49→21:06)
[2016-05-18] MEDS: CARVEDILOL 6.25 MG TAB PO SCH ×2 (08:49→17:52)
[2016-05-18] MEDS: GABAPENTIN 100 MG CAP PO SCH ×3 (08:49→21:36)
[2016-05-18 08:52] LABS: Add Differential Manual Differential
[2016-05-18 08:56] LABS: Manual Review Performed; Myelocytes % 0.5 %; Nucleated Red Blood Cells 1 /100 WBC (0-0); Total Cells Counted 200; WBC 8.5 k/uL (3.8-10.6)
[2016-05-18 08:57] LABS: Polychromasia Present; Toxic Granulation Present
[2016-05-18 09:03] LABS: Calcium 7.7 mg/dL (8.4-10.2); Potassium 4.6 mmol/L (3.5-5.1); Total Bilirubin 0.7 mg/dL (0.2-1.3)
[2016-05-18] MEDS: PANTOPRAZOLE 40 MG TABLET PO SCH (09:06)
[2016-05-18] MEDS: COLLAGENASE 250 UNIT/GM OINTMENT 30 GM TUBE TOPICAL SCH (09:06)
--- NOTE | 2016-05-18 10:44 | PN ---
This is a white male with very extensive medical history that basically came after going to a fdc with C. difficile, treated on outpatient basis. He also had a staph bacteremia. He was there with vancomycin and then brought back to the hospital from [facility] unresponsive. At that time, he was in acute renal failure and severe hypotension underlying pneumonia. He also had urinary tract infection and was placed in ICU. After many days he responded to IV antibiotics, IV fluids and vasopressors. His hemoglobin eventually was 7.2 and then after giving him medication went back up to 8.9 and did quite well. His blood pressure was very low, now it is back up into the 110 to 120 area. Seen by Nephrology and it appears he has acute ATN on top of his chronic renal failure and his urine culture grew back Yi glabrata for which he is on an IV antifungal. His sugars continued to be very high, was put on 40 of Lantus b.i.d., he has responded quite well. He also appeared to be adrenal insufficient, was started on Cortef 50 mg q.8 and now is decreased to once a day. At this period of time, his review of systems: ENT is within normal limits. CARDIOPULMONARY: There is no shortness of breath or chest pain. GI: No hematemesis, melena, hematochezia. : He has a Salinas catheter. INTEGUMENTARY: He has bilateral scar wounds with excoriated skin and perhaps his bacteremia was from that area. LOWER EXTREMITIES: Severe stasis dermatitis with severe peripheral neuropathy from diabetes. NEUROMUSCULAR: Has decrease in strength in his arms. His legs absolutely no strength to move. PSYCHIATRIC: He is not depressed, but is very anxious to move on. Family history review is nothing to add. SOCIAL HISTORY: He is a long-time smoker, greater than a pack, going on for nearly 30 years. He stopped just before going into [facility]. His has been very supportive at his side. VITAL SIGNS AT THIS TIME: His blood pressure yesterday afternoon was 105/72 and then 2000 hours it was 122/60. heart rate in the 90s, O2 sat is 90% on 5 L and then his respiratory rate now is 16. At this point. ENT is within normal limits. Eyes are pupils are equal, round to light and accommodation. His neck is supple. Midline trachea. No carotid bruits. Cardiac is irregular, irregular atrial fibrillation is well controlled. At this time chest is essentially clear to auscultation in planes in x-ray showing resolving pneumonia. Abdomen is obese, soft, nontender, with no organomegaly. He has no open abrasions. Musculoskeletal, he has stasis dermatitis changes on his legs and abrasion on his knee, obvious lesions on his buttocks excoriated with wound, all felt to be pressure sores in nature. He does have minimal foot strength in the right and left leg at this time. Upper arm strength is returning. Psychiatric, again, he orientated to person, place, and thing. He does not appear to be depressed. Diet is low potassium, low phosphorus, moderate carbohydrate. Physical therapy is present. He is on ( ). Also, his code status is FULL. His rehab potential is fair. He is on CPAP at night and O2 is between 3 and 5 L during the day. Blood cultures continued to be negative and there is no new urine cultures. His coags today show PT INR of 1.7. DIAGNOSES: 1. Sepsis with left lower lobe pneumonia, resolving. 2. Bilateral sacral abrasions and also decubiti not classified. 3. Renal insufficiency. 4. Severe renal failure with acute ATN classified as a class 4. 5. Systolic heart failure. He does have ejection fraction of 30%. 6. Chronic anemia felt to be perhaps a combination of hemolytic and from chronic renal failure. 7. Hypotension, is resolved. 8. Yi glabrata urinary tract infection, treated with antifungals. 9. Chronic atrial fibrillation, which is stable. 10. Type 2 diabetes with insulin support. 11. Long-standing chronic obstructive pulmonary disease. 12. Mild to moderate pulmonary hypertension with RVSP of 46. 13. Acute on chronic hypoxic ( ) failure. No new lab to add. Dr. Tompkins was consulted. He will be going down for surgery for those abrasions. We will continue with supportive care at this time. Please refer to my orders.
[2016-05-18 11:00] LABS: INR 2.3 (<1.1); Prothrombin Time 22.5 sec (9.0-12.0)
[2016-05-18] MEDS ORDERED: PHYTONADIONE ORAL 5 MG/5 ML ORAL.SYRG PO STA ×2 (11:03→13:11)
[2016-05-18 11:53] LABS: Glucose,Whole Blood 103 mg/dL (75-99)
[2016-05-18] MEDS ORDERED: ACETAMINOPHEN TAB 325 MG TAB PO PRN (13:05)
[2016-05-18] MEDS ORDERED: HYDROcodone/APAP 10-325MG 1 EACH TAB PO PRN (13:05)
[2016-05-18] MEDS ORDERED: DOCUSATE 100 MG CAP PO PRN (13:05)
[2016-05-18] MEDS ORDERED: CYCLOBENZAPRINE 5 MG TAB PO PRN (13:05)
[2016-05-18] MEDS ORDERED: BENZONATATE 100 MG CAP PO PRN (13:05)
[2016-05-18 13:19] LABS: Hemoglobin A1C 4.1 % (4.2-6.1)
--- NOTE | 2016-05-18 13:19 | P.PN ---
Subjective 56-year-old being seen this morning scheduled tomorrow pending INR for surgical debridement of an unstageable sacral decubitus ulcer in the operating room under general anesthetic. Patient has history of chronic atrial fibrillation on anticoagulation Coumadin the INR this morning is 2.3 vitamin K for a total of 10 has been given Objective - Vital Signs Vital signs: Vital Signs Temp 96.9 F L 05/18/16 07:00 Pulse 74 05/18/16 12:08 Resp 20 05/18/16 08:00 BP 107/67 05/18/16 07:00 Pulse Ox 94 L 05/18/16 07:00 Intake & Output 05/17/16 05/18/16 05/18/16 18:59 06:59 18:59 Intake Total 477 230 Output Total 552 400 2 Balance -75 -170 -2 Weight 178.7 kg 177.4 kg Intake: Intake, IV Titration 230 Amount Sodium Chloride 0.9% 1, 230 000 ml @ 20 mls/hr IV . Q24H [facility] Rx#:[id number] Oral 477 Output: Urine 550 400 Uretheral (Salinas) 400 Stool 2 2 Other: Voiding Method Indwelling Catheter Indwelling Catheter Indwelling Catheter # Voids 3 ABP, PAP, CO, CI - Last Documented Arterial Blood Pressure 128/58 - Exam Physical exam 56-year-old morbidly obese gentleman resting in bed appears no acute distress Lungs anterior essentially clear no cough noted no conversational dyspnea noted Heart S1-S2 audible regular Abdomen morbidly obese indwelling Salinas catheter in place not distended and nontender Extremities chronic venous stasis of the lower extremities with generalized edema Skin currently has a dressing to the sacral area dressing currently is dry - Labs CBC & Chem 7: 05/18/16 07:21 05/18/16 07:21 Labs: Abnormal Lab Results - Last 24 Hours (Table) 05/17/16 05/17/16 05/18/16 Range/Units 17:22 20:24 04:02 RBC (4.30-5.90) m/uL Hgb (13.0-17.5) gm/dL Hct (39.0-53.0) % MCHC (31.0-37.0) g/dL RDW (11.5-15.5) % Plt Count (150-450) k/uL Neutrophils # (Manual) (1.3-7.7) k/uL Lymphocytes # (Manual) (1.0-4.8) k/uL Nucleated RBCs (0-0) /100 WBC PT (9.0-12.0) sec Sodium (137-145) mmol/L BUN (9-20) mg/dL Creatinine (0.66-1.25) mg/dL POC Glucose (mg/dL) 165 H 145 H 106 H (75-99) mg/dL Calcium (8.4-10.2) mg/dL Alkaline Phosphatase (38-126) U/L Total Protein (6.3-8.2) g/dL Albumin (3.5-5.0) g/dL 05/18/16 05/18/16 05/18/16 Range/Units 07:21 07:21 07:35 RBC 3.40 L (4.30-5.90) m/uL Hgb 9.7 L (13.0-17.5) gm/dL Hct 31.5 L (39.0-53.0) % MCHC 30.8 L (31.0-37.0) g/dL RDW 24.7 H (11.5-15.5) % Plt Count 76 L (150-450) k/uL Neutrophils # (Manual) 7.8 H (1.3-7.7) k/uL Lymphocytes # (Manual) 0.4 L (1.0-4.8) k/uL Nucleated RBCs 1 H (0-0) /100 WBC PT (9.0-12.0) sec Sodium 132 L (137-145) mmol/L BUN 117 H* (9-20) mg/dL Creatinine 2.50 H (0.66-1.25) mg/dL POC Glucose (mg/dL) 125 H (75-99) mg/dL Calcium 7.7 L (8.4-10.2) mg/dL Alkaline Phosphatase 439 H (38-126) U/L Total Protein 5.0 L (6.3-8.2) g/dL Albumin 2.4 L (3.5-5.0) g/dL 05/18/16 05/18/16 Range/Units 10:38 11:40 RBC (4.30-5.90) m/uL Hgb (13.0-17.5) gm/dL Hct (39.0-53.0) % MCHC (31.0-37.0) g/dL RDW (11.5-15.5) % Plt Count (150-450) k/uL Neutrophils # (Manual) (1.3-7.7) k/uL Lymphocytes # (Manual) (1.0-4.8) k/uL Nucleated RBCs (0-0) /100 WBC PT 22.5 H (9.0-12.0) sec Sodium (137-145) mmol/L BUN (9-20) mg/dL Creatinine (0.66-1.25) mg/dL POC Glucose (mg/dL) 103 H (75-99) mg/dL Calcium (8.4-10.2) mg/dL Alkaline Phosphatase (38-126) U/L Total Protein (6.3-8.2) g/dL Albumin (3.5-5.0) g/dL Assessment and Plan Plan: Impression Present on admission unstageable large sacral pressure ulcer Chronic persistent atrial fibrillation on anticoagulation Coumadin Chronic debility with limited mobility wheelchair bedbound Present on admission coagulopathy Super morbid obesity BMI 50 Acute on chronic hypoxic respiratory failure suspect due to hospital community acquired pneumonia Acute on chronic renal failure, CKD 4 Present on admission Septic shock, suspect due to healthcare acquired pneumonia resolved Afib with CVR UTI POA, Yi glabrata Acute on chronic Systolic CHF, EF 35-40% Mild to moderate pulmonary hypertension, RVSP 46 mmHg Recent C diff colitis Bicytopenia NSTEMI Coumadin coagulopathy Hyponatremia Hx strep pyogenes bacteremia AECOPD GUICHO/OHS, on bipap Hx tobacco abuse DM2 insulin requiring PCM Plan Patient will need debridement of the unstageable sacral pressure ulcer in the OR using general anesthesia patient will need to be cleared from a medical standpoint before proceeding the INR will need to be less than 1.5 Will check a prealbumin and hemoglobin A1c level Follow-up on pending hemoglobin A1c Start enzymatic debridement using santyl Vitamin K 10 by mouth now Will be scheduled for Sunday or Sunday when the patient is stable from a medical standpoint for general anesthesia for debridement of the sacral decubitus ulcer Hold Coumadin Will need an air mattress with frequent position changes Post procedure patient will need to be bridged using Lovenox with Coumadin to be restarted Continue nutritional support Thank you for allowing us to participate in the surgical management of your patient and for this kind consultation The above dictated assessment and findings were discussed with dr xiao. Impression and the plan of care have been dictated as directed. Lauren Marquez nurse practitioner acting as a scribe dr ortiz
[2016-05-18 16:22] LABS: INR 2.3 (<1.1); Prothrombin Time 21.8 sec (9.0-12.0)
--- NOTE | 2016-05-18 16:35 | PN ---
DATE OF SERVICE: 05/18/2016 The patient is a 56-year-old morbidly obese male who is seen lying in bed, is awake and alert. Does complain of pain, which is to the sacral area where patient has a decubitus ulcer, which needs debridement. The patient is afebrile, hemodynamically stable, in no acute distress. On physical exam, vital signs: Temp is 96.9, heart rate 74, respiratory rate 20, blood pressure is 107/67, oxygen saturation 94% on 3 liters O2 via nasal cannula. HEENT: Head is normocephalic, atraumatic. NECK: Supple. Trachea is midline. LUNGS: Sounds with her decreased. HEART: S1 and S2 are heard, irregular not tachycardic. ABDOMEN: Soft, obese. Bowel sounds are heard. EXTREMITIES: With chronic venous insufficiency and edema. Currently with bilateral base wraps and boots. NEUROLOGIC: The patient is awake and alert. LABS: White count is 8.5, hemoglobin is 9.7, hematocrit 31.5 with 76,000 platelets. PT is 22.5 with an INR of 2.3. Sodium is 132, potassium is 4.6, chloride 99. CO2 is 23. Anion gap is 10, BUN 117, creatinine 2.50, glucose is 89. Calcium is 7.7. Total bilirubin 0.7, AST is 34, ALT is 55. Alkaline phosphatase is 439, total protein 5.0. Albumin is 2.4, prealbumin is 20. No new imaging to review. IMPRESSION: 1. Acute on chronic hypoxic respiratory failure. 2. HCAP. 3. Acute on chronic renal failure, Chronic kidney disease IV. 4. Septic shock, resolved. 5. Atrial fibrillation with rapid ventricular response. 6. Urinary tract infection. 7. Systolic congestive heart failure, ejection fraction is 35 to 40%. 8. Ferd-ek-nufundhn pulmonary hypertension, RVSP 46 mmHg, 9. Recent Clostridium difficile colitis. 10. Pancytopenia. 11. Non-ST elevated myocardial infarction. 12. Coumadin coagulopathy. 13. Hyponatremia. 14. History of strep pyogenes bacteremia. 15. Acute exacerbation of chronic obstructive pulmonary disease. 16. Obstructive sleep apnea, obesity hypoventilation syndrome on BiPAP. 17. History of tobacco abuse. 18. Diabetes mellitus type 2. 19. Morbid obesity. 20. Sacral decubitus ulcer, requiring debridement. PLAN: Continue current medications which have been reviewed. Continue BiPAP support. Maintain O2 sat greater than or equal to 88% with oxygen and BiPAP. Continue antibiotics per infectious disease. Continue GI and DVT prophylaxis. The patient's Coumadin will need to be reversed in order to undergo debridement of the sacral ulcer. Continue with nephrology and cardiology recommendations as well as surgical. Continue bronchodilators and aerosolized steroids. Continue Solu-Cortef taper. Patient to continue PT, OT. The patient is scheduled for debridement of sacral ulcer tomorrow, is high risk for general anesthetic even though patient's respiratory status is at baseline. Will continue to follow the patient closely with you, making further changes as necessary.
[2016-05-18 17:09] LABS: Glucose,Whole Blood 82 mg/dL (75-99)
[2016-05-18] MEDS: SODIUM CHLORIDE 0.9% 1,000 ML IV SCH (17:54)
[2016-05-18 20:43] LABS: Glucose,Whole Blood 116 mg/dL (75-99)
[2016-05-19 02:06] LABS: Glucose,Whole Blood 80 mg/dL (75-99)
[2016-05-19] MEDS: INSULIN LISPRO (humaLOG) 300 UNIT/3 ML VIAL SQ SCH ×5 (02:33→22:54)
[2016-05-19] MEDS: IPRATROPIUM-ALBUTEROL 3 ML NEB INHALATION SCH ×4 (07:06→19:43)
[2016-05-19] MEDS: BUDESONIDE 0.5 MG/2 ML NEBU INHALATION SCH ×2 (07:06→19:42)
[2016-05-19 07:25] LABS: Glucose,Whole Blood 88 mg/dL (75-99)
[2016-05-19 08:19] LABS: INR 1.5 (<1.1); Prothrombin Time 14.4 sec (9.0-12.0)
--- NOTE | 2016-05-19 10:45 | PN ---
DATE OF SERVICE: 05/18/2016 REASON FOR FOLLOWUP: 1. Pneumonia. 2. UTI. 3. Sacral pressure ulcer. INTERVAL HISTORY: The patient is afebrile. Has been breathing comfortably. Denies any significant chest pain or shortness of breath. Occasional cough. No abdominal pain. No diarrhea. On examination, blood pressure 118/71 with a pulse of 74, temperature 98. He is 93% on 3 L nasal cannula. General description is an middle age male lying in bed in no distress. RESPIRATORY SYSTEM: Unlabored breathing. Clear to auscultation anteriorly. HEART: S1, S2. Regular rate and rhythm. ABDOMEN: Soft, no tenderness. LABS: Hemoglobin 9.7 , white count 8.5. DIAGNOSTIC IMPRESSION AND PLAN: 1. Patient admitted to hospital with sepsis component of underlying pneumonia has been adequately treated. 2. Urinary tract infection, adequately treated. 3. Sacral pressure ulcer, unstageable. Awaiting surgical debridement. Clinically no evidence of any cellulitis. Hence, will hold any further ( ) antibiotic therapy at this point.
[2016-05-19 10:52] LABS: Glucose,Whole Blood 84 mg/dL (75-99)
[2016-05-19 11:31] LABS: Calcium 8.3 mg/dL (8.4-10.2); Potassium 4.9 mmol/L (3.5-5.1); Total Bilirubin 0.8 mg/dL (0.2-1.3); Total Protein 5.6 g/dL (6.3-8.2)
[2016-05-19] MEDS: CARVEDILOL 6.25 MG TAB PO SCH ×2 (12:07→17:00)
[2016-05-19] MEDS: GABAPENTIN 100 MG CAP PO SCH ×3 (12:11→22:54)
[2016-05-19] MEDS: COLLAGENASE 250 UNIT/GM OINTMENT 30 GM TUBE TOPICAL SCH (12:11)
[2016-05-19] MEDS: HYDROCORTISONE 20 MG TAB PO SCH ×2 (12:13→22:54)
[2016-05-19] MEDS: INSULIN GLARGINE 100 UNIT/ML 10 ML VIAL SQ SCH ×2 (12:14→22:54)
--- NOTE | 2016-05-19 12:19 | PN ---
A 56-year-old white male who has had increase in decubiti in the buttocks quite severely becoming with necrotic tissue. I discussed the case with Dr. Chinchilla. He suggested Dr. Tompkins or Dr. Chowdhury. Consult was put in and she is taking him down to be under light sedation. He has been very tired and fatigued, so we decided we would be careful with the use of anesthesia. He has not had a chem-17 and so we have done that just right immediately. We also got him on chem-17. His INR at this time is down to 1.5 and his blood sugars in the 80s. At this period of time, he is responsive, but still very, very drowsy. REVIEW OF SYSTEMS: CARDIOPULMONARY: He is not having any shortness of breath. No chest pain, no orthopnea, no cough. GI: No hematemesis, melena, hematochezia. No abdominal pain. : He does have a Salinas catheter in. INTEGUMENTARY: He does have the wounds on his buttocks, excoriated skin and he also has discoloration on his let lower legs. NEUROMUSCULAR: He has decreased in arm strength and leg strength. PSYCHIATRIC: He is responsive but seems to be very, very fatigued and much more out of it than usual. SOCIAL HISTORY: He is a long-time smoker, greater than a pack, going for 30 years. He stopped just before going to [facility]. His has been very supportive at his side. VITAL SIGNS: Today his blood pressure is 112/69. His heart rates in the 70 respiratory rate 18. He has got 99 oxygen on 3 L cannula. PSYCHIATRIC: He is well oriented to person, place, and thing, but very, very drowsy. ENT: His eyes appear a little glassy today. His nose and pharynx is normal. No problems with the face as far as skin goes. INTEGUMENTARY: Actually warm. NECK: Supple with midline trachea. No carotid bruits. CARDIAC: Irregular, irregular atrial fibrillation, well controlled. ABDOMEN: Soft, nontender, with no organomegaly, but he is obese. MUSCULOSKELETAL: Stasis dermatitis on his legs, abrasions on his knee; obviously the wounds on his buttocks and sacral area. Neurologically, he has very decreased leg strength bilaterally. His upper arm strength is beginning to return. At this time, his CBC is stable. Chem-17 is being done. His INR is at 1.5. DIET: He is on a low potassium, low phosphorus, which is being held, moderate carbohydrate. Physical therapy is present. Also, his code status is FULL. His rehab potential is fair. He is on CPAP to BiPAP. Blood cultures negative. ASSESSMENT: 1. Severe wounds on the buttocks of major concern and primary concern at this time. 2. He is sepsis with left lower lobe pneumonia. 3. Bilateral sacral abrasions also decubiti. 4. Renal insufficiency. 5. Severe renal failure with acute ATN class IV. 6. Systolic heart failure. He does have an ejection fraction of 30%. 7. Chronic anemia felt to be perhaps a combination of hemolytic and chronic renal. 8. Hypotension is now resolved. 9. Yi glabrata urinary tract infection, treated with antifungals. 10. Chronic atrial fibrillation, which is stable. 11. Type 2 diabetes with insulin support. 12. Long-standing severe chronic obstructive pulmonary disease. 13. Mild to moderate pulmonary hypertension, RVSP of 46. 14. Chronic hypoxia with respiratory failure. Plan is to go ahead with surgery. Talked with Surgery through nursing and anesthesia and will go with light sedation. This is of primary importance. He will need supportive care.
--- NOTE | 2016-05-19 13:04 | P.PN ---
Subjective Principal diagnosis: Septic shock Patient seen and examined. Patient is a little more sleepy today. He states he did wear the BiPAP overnight. He is not having any difficulty breathing at this point. Objective - Vital Signs Vital signs: Vital Signs Temp 97.9 F 05/18/16 15:00 Pulse 76 05/19/16 11:08 Resp 18 05/19/16 08:00 BP 112/69 05/19/16 07:00 Pulse Ox 99 05/19/16 07:00 Intake & Output 05/18/16 05/19/16 05/19/16 18:59 06:59 18:59 Intake Total 240 900 Output Total 804 301 Balance -564 900 -301 Weight 173.1 kg Intake: Intake, IV Titration 240 Amount Sodium Chloride 0.9% 1, 240 000 ml @ 20 mls/hr IV . Q24H [facility] Rx#:[id number] Oral 240 660 Output: Urine 800 300 Stool 4 1 Other: Voiding Method Indwelling Catheter Indwelling Catheter Indwelling Catheter ABP, PAP, CO, CI - Last Documented Arterial Blood Pressure 128/58 - Exam Gen: Alert and oriented 3, currently on nasal cannula CV: RRR, s1/s2 Lungs: Diminished breath sounds bilaterally Abd: soft, NT/ND, +BS Ext: +2-3 pitting edema, chronic venous stasis - Labs CBC & Chem 7: 05/18/16 07:21 05/19/16 07:51 Labs: Abnormal Lab Results - Last 24 Hours (Table) 05/18/16 05/18/16 05/18/16 Range/Units 07:21 15:57 20:37 PT 21.8 H (9.0-12.0) sec Sodium (137-145) mmol/L BUN (9-20) mg/dL Creatinine (0.66-1.25) mg/dL POC Glucose (mg/dL) 116 H (75-99) mg/dL Hemoglobin A1c 4.1 L (4.2-6.1) % Calcium (8.4-10.2) mg/dL Alkaline Phosphatase (38-126) U/L Total Protein (6.3-8.2) g/dL Albumin (3.5-5.0) g/dL 05/19/16 05/19/16 Range/Units 07:51 07:51 PT 14.4 H (9.0-12.0) sec Sodium 131 L (137-145) mmol/L BUN 118 H* (9-20) mg/dL Creatinine 3.09 H (0.66-1.25) mg/dL POC Glucose (mg/dL) (75-99) mg/dL Hemoglobin A1c (4.2-6.1) % Calcium 8.3 L (8.4-10.2) mg/dL Alkaline Phosphatase 419 H (38-126) U/L Total Protein 5.6 L (6.3-8.2) g/dL Albumin 2.7 L (3.5-5.0) g/dL Assessment and Plan Plan: Acute on chronic hypoxic respiratory failure HCAP Acute on chronic renal failure, CKD 4 Septic shock, resolved Afib with CVR UTI POA, Yi glabrata Systolic CHF, EF 35-40% Mild to moderate pulmonary hypertension, RVSP 46 mmHg Recent C diff colitis Bicytopenia NSTEMI Coumadin coagulopathy Hyponatremia Hx strep pyogenes bacteremia AECOPD GUICHO/OHS, on bipap Hx tobacco abuse DM2 PCM Morbid obesity Sacral decubitus ulcer, s/p debridement Continue Bipap support, wean FiO2 for sat > or = 88% ABX per ID Continue subcu heparin, monitor INR, Coumadin dosing Nephro and cardio recommendations Protonix for GI prophylaxis Continue Duonebs and Pulmicort Continue SoluCortef - taper Lasix per nephrology Ultrasound of the chest reveals no evidence of pleural effusion. Monitor renal function PT and OT Patient's respiratory status is at baseline
--- NOTE | 2016-05-19 13:21 | PN ---
This is a 56-year-old white male who has severe decubiti on the buttocks. He is going down for treatment, surgical debridement, with Dr. Tompkins. He is going under light after conversation with both Dr. Knox and myself. He did have his previous staph bacteremia. He has also had C. difficile on outpatient basis. This gentleman has also been in pulmonary rehab over in [place] for over 30 days and he has very poor pulmonary function at this time. He has also been on vancomycin and was brought back to the hospital ECF almost ( ). At this period of time, he has been set up for the surgical procedure that we are talking about and he has been doing relatively well. Today, he seems a little bit more drowsy. little bit more out of it unfortunately. He has been on Flexeril 5 mg and we did restart his hydrocodone 10/325 for pain and with the Flexeril. So at this period of time, I am discontinuing his Flexeril.
--- NOTE | 2016-05-19 13:52 | PN ---
Lam Small who is seen for followup for acute kidney injury on top of chronic kidney disease. Patient is scheduled for surgery today for debridement of the necrotic area and the sacral decub. His renal function has been stable with creatinine staying at about 2.1 to 2.0 mg/dL but it did increase to 2.5 yesterday and today it is at 3.0. Patient continues to have an indwelling Salinas catheter with fairly good urine output. He is maintained on IV fluids at about 75 mL an hour, which was started today. On examination, blood pressure is 112/69, heart rate 71 per minute. He is afebrile. Examination shows patient is morbidly obese. He is lying in bed, comfortable. His legs are wrapped. Labs show sodium 131, potassium 4.9, BUN 118, serum creatinine 3.09. ASSESSMENT: 1. Acute kidney injury with renal function stabilizing but now another increase in the creatinine is which is now up to 3.09. Patient has been started on IV fluids, which we can continue. He has an indwelling Salinas catheter; therefore there is no obstructive uropathy. There are no nephrotoxic agents on board at this time. Continue with the Protonix for now. 2. Anemia of chronic disease, maintained on Aranesp. 3. Severe sacral inflammation with necrotic tissues at the decubitus going for surgery today. PLAN: Continue with IV fluids for now and repeat labs in a.m.
[2016-05-19] MEDS: SODIUM CHLORIDE 0.9% 1,000 ML IV SCH ×3 (14:49→16:49)
[2016-05-19 14:55] LABS: Glucose,Whole Blood 76 mg/dL (75-99)
[2016-05-19] MEDS ORDERED: fentaNYL (PF) 50 MCG/ML 2 ML AMP IV ONE (15:17)
[2016-05-19] MEDS: ALLOPURINOL 300 MG TAB PO SCH (15:34)
[2016-05-19] MEDS: PANTOPRAZOLE 40 MG TABLET PO SCH (15:35)
[2016-05-19] MEDS ORDERED: PHENYLEPHRINE-0.9% NACL SYG 1 MG/10 ML SYRINGE ONE (15:45)
[2016-05-19] MEDS ORDERED: ePHEDrine 50 MG/ML 1 ML AMP ONE (15:45)
[2016-05-19] MEDS ORDERED: MIDAZOLAM 2 MG/2 ML VIAL ONE (15:45)
[2016-05-19] MEDS ORDERED: KETAMINE 10 MG/ML 20 ML VIAL ONE (15:45)
[2016-05-19 17:38] LABS: Glucose,Whole Blood 70 mg/dL (75-99)
[2016-05-19] MEDS ORDERED: HYDROcodone/APAP 5-325MG 1 EACH TAB PO PRN (18:12)
[2016-05-19 18:36] LABS: Glucose,Whole Blood 63 mg/dL (75-99)
[2016-05-19 22:03] LABS: Glucose,Whole Blood 70 mg/dL (75-99)
[2016-05-19] MEDS: HYDROCORTISONE SUCCINATE 100 MG/2 ML VIAL IV SCH (23:23)
[2016-05-20 01:56] LABS: Glucose,Whole Blood 88 mg/dL (75-99)
[2016-05-20] MEDS: INSULIN LISPRO (humaLOG) 300 UNIT/3 ML VIAL SQ SCH ×5 (02:08→21:28)
[2016-05-20] MEDS: DEXTROSE 5%-0.9% NACL 1,000 ML IV SCH ×5 (02:12→22:45)
[2016-05-20] MEDS: BUDESONIDE 0.5 MG/2 ML NEBU INHALATION SCH ×2 (07:46→21:14)
[2016-05-20] MEDS: IPRATROPIUM-ALBUTEROL 3 ML NEB INHALATION SCH ×4 (07:46→21:14)
[2016-05-20 07:56] LABS: Anisocytosis Marked; CH 27.5; CHCM 28.7; HCT 34.2 % (39.0-53.0); HDW 4.27; HGB 10.1 gm/dL (13.0-17.5); Hypochromasia Marked; MCH 28.5 pg (25.0-35.0); MCHC 29.6 g/dL (31.0-37.0); MCV 96.2 fL (80.0-100.0); Macrocytosis Moderate; Mean Platelet Volume 8.7; Poikilocytosis Moderate; RBC 3.55 m/uL (4.30-5.90); RDW 24.5 % (11.5-15.5); WBC 8.2 k/uL (3.8-10.6); WBC (Perox) 8.16
[2016-05-20 08:04] LABS: Glucose,Whole Blood 97 mg/dL (75-99)
[2016-05-20 08:08] LABS: Add Differential Manual Differential
[2016-05-20 08:10] LABS: Band Neutrophils % 0.5 %; Myelocytes % 0.5 %; Nucleated Red Blood Cells 0 /100 WBC (0-0); Polychromasia Present; Total Cells Counted 200
[2016-05-20] MEDS: PANTOPRAZOLE 40 MG TABLET PO SCH (08:12)
[2016-05-20] MEDS: ALLOPURINOL 300 MG TAB PO SCH (08:12)
[2016-05-20] MEDS: GABAPENTIN 100 MG CAP PO SCH ×3 (08:12→20:30)
[2016-05-20] MEDS: HYDROCORTISONE SUCCINATE 100 MG/2 ML VIAL IV SCH ×3 (08:13→23:07)
[2016-05-20] MEDS: CARVEDILOL 6.25 MG TAB PO SCH ×2 (08:34→16:38)
[2016-05-20] MEDS: INSULIN GLARGINE 100 UNIT/ML 10 ML VIAL SQ SCH (10:04)
[2016-05-20] MEDS ORDERED: KETOROLAC 30 MG/ML 1 ML VIAL IVP PRN (10:45)
--- NOTE | 2016-05-20 11:17 | P.OP ---
Date of Procedure: 05/19/16 Preoperative Diagnosis: Sacral decubitus ulcer unstageable Type II diabetes mellitus Hypertension Pulmonary edema Chronic renal failure Postoperative Diagnosis: Stage 2 and 3 sacral pressure ulcers Procedure(s) Performed: Sharp excisional debridement of sacral decubitus ulcer Application of wound VAC Anesthesia: MAC Surgeon: Edwige Tompkins Estimated Blood Loss (ml): 5 Pathology: other Condition: stable Disposition: PACU Indications for Procedure: 56 years old male with multiple comorbid conditions including type 2 diabetes mellitus, hypertension, osteoarthritis, morbid obesity BMI 49.3, chronic renal failure, atrial fibrillation,pulmonary edema and presented with unstageable sacral decubitus ulcers . Informed consent obtained and patient elected to undergo surgical debridement in the OR with application of wound VAC Operative Findings: Stage II and stage III decubitus ulcers involving the sacral area Description of Procedure: the patient was brought to the operating room and placed in lateral decubitus position. IV sedation was given as per anesthesia team. A timeout was performed to verify correct patient and correct procedure. There is a large sacral pressure ulcer with diffuse bleeding and oozing. The area is very close to the anal opening. Using #15 scalpel sharp excisional debridement was performed to remove necrotic skin and subcutaneous tissue. Fresh pinpoint bleeding was obtained. The surrounding area was cleaned using pulse evacuator. Fresh pinpoint bleeding obtained. Hemostasis was checked. Final post-debridement measurements: 10x12x.5 cm and 12x11x o.3 cm Adaptic dressing was applied followed by black wound VAC sponge which was tunneled to the right thigh region. The wound VAC was sealed and pressure applied to 75 mm of continuous pressure. Patient tolerated the procedure well and was taken to post anesthesia care unit in stable condition. The sponge, instrument and needle counts were correctx2
--- NOTE | 2016-05-20 11:56 | P.PN ---
Subjective Principal diagnosis: Sacral decubitus ulcer Postop day #1 status post surgical debridement of sacral decubitus ulcer and wound VAC application. No acute events overnight. Wound VAC at 75 mm of continuous pressure. Objective - Vital Signs Vital signs: Vital Signs Temp 96.7 F L 05/20/16 07:00 Pulse 91 05/20/16 07:00 Resp 20 05/20/16 08:00 BP 105/66 05/20/16 07:00 Pulse Ox 100 05/20/16 07:00 Intake & Output 05/19/16 05/20/16 05/20/16 18:59 06:59 18:59 Intake Total 600 1040 650 Output Total 352 751 1 Balance 248 289 649 Weight 174 kg Intake: IV 600 Intake, IV Titration 800 Amount Dextrose 5%-0.9% NaCl 1, 800 000 ml @ 100 mls/hr IV . Q10H [facility] Rx#:[id number] Oral 0 240 650 Output: Urine 340 750 Uretheral ([place]) 400 Stool 2 1 1 Estimated Blood Loss 10 Other: Voiding Method Indwelling Catheter Indwelling Catheter Indwelling Catheter ABP, PAP, CO, CI - Last Documented Arterial Blood Pressure 128/58 - Exam No acute events. Wound VAC in place - Labs CBC & Chem 7: 05/20/16 07:12 05/20/16 07:12 Labs: Abnormal Lab Results - Last 24 Hours (Table) 05/19/16 05/19/16 05/19/16 Range/Units 17:36 18:33 22:00 RBC (4.30-5.90) m/uL Hgb (13.0-17.5) gm/dL Hct (39.0-53.0) % MCHC (31.0-37.0) g/dL RDW (11.5-15.5) % Plt Count (150-450) k/uL Lymphocytes # (Manual) (1.0-4.8) k/uL Sodium (137-145) mmol/L BUN (9-20) mg/dL Creatinine (0.66-1.25) mg/dL Glucose (74-99) mg/dL POC Glucose (mg/dL) 70 L 63 L 70 L (75-99) mg/dL Calcium (8.4-10.2) mg/dL 05/20/16 05/20/16 Range/Units 07:12 07:12 RBC 3.55 L (4.30-5.90) m/uL Hgb 10.1 L (13.0-17.5) gm/dL Hct 34.2 L (39.0-53.0) % MCHC 29.6 L (31.0-37.0) g/dL RDW 24.5 H (11.5-15.5) % Plt Count 80 L (150-450) k/uL Lymphocytes # (Manual) 0.5 L (1.0-4.8) k/uL Sodium 130 L (137-145) mmol/L BUN 120 H* (9-20) mg/dL Creatinine 3.22 H (0.66-1.25) mg/dL Glucose 104 H (74-99) mg/dL POC Glucose (mg/dL) (75-99) mg/dL Calcium 8.0 L (8.4-10.2) mg/dL Microbiology - Last 24 Hours (Table) 05/19/16 22:48 Urine Culture - Preliminary Urine,Catheterized 05/19/16 16:45 Gram Stain - Preliminary Back Wound Culture - Preliminary 05/19/16 16:45 Anaerobic Culture - Preliminary Back Assessment and Plan (1) Anemia Status: Acute (2) Sepsis Status: Acute (3) Chronic a-fib Status: Chronic (4) Diabetes Status: Chronic (5) Pulmonary HTN Status: Chronic Plan: 1. Deep tissue cultures pending 2. Check hemoglobin A1c and prealbumin 3. Air mattress 4. Change of position every 2 hours 5. Change wound VAC on Sunday thereafter change every 48-72 hours 6. Follow up at wound center with a panel physician
--- NOTE | 2016-05-20 12:35 | PN ---
This a 56-year-old white male who of course that had yesterday increased decubiti in the buttocks that became quite severely infected with necrotic tissue and has been treated with ( ) per Dr. Chinchilla. Dr. Tompkins went and saw this patient set him up for surgery and we were able after much discussion with anesthesiology to convince them to use slightly sedation. He went through it. He came back very, very tired, very fatigued. Last night he had a very low temp of 94, we could not get it up. Blood pressure was beginning to drop. We started him on large amounts of IV fluid, and then also restarted his Solu-Cortef to 50 q.8. At this period of time he is doing very well. He is much more alert and actually can actually answer questions very, very slowly and he is well aware of his family who they are and who I am. At this point review of systems: CARDIOPULMONARY: He is not short of breath. There is no chest pain. There is no orthopnea. No paroxysmal nocturnal dyspnea. GI: No hematemesis, melena, hematochezia, and absolutely no abdominal pain. : He does have a [place] catheter. INTEGUMENTARY: He does have wounds on his buttocks, excoriated skin. He has had discoloration of the lower legs. NEUROMUSCULAR: He has a decrease in arm strength and also in leg strength. ( ) PSYCHIATRIC: He is responsive but very fatigued, but more alert than yesterday. SOCIAL HISTORY: Long-time smoker, greater than a pack, going on 30 years. He stopped just before going to [facility]. His has been very supportive at his side. Medications have all been reviewed, which include listed in order: 1. DuoNeb updrafts 4 times a day. 2. Zyloprim 300 daily. 3. Tessalon Perles p.r.n. cough. 4. Pulmicort 0.5 updraft twice a day. daily. 5. Coreg 6.5 b.i.d. 6. Santyl collagenase is now being reapplied to the buttocks daily. 7. Erythropoietin-Procrit 40 mg subcu every 7 days. 8. Gabapentin restarted ( ) mg 3 times a day ( ). 9. Solu-Cortef 50 mg IV push every 8. 10. Lantus insulin is 20 mg b.i.d., but it is being held. He is on insulin to scale a.c. meals. 11. Protonix 40 mg daily. 12. A fair number of p.r.n. medications of which we are not using at this time. Microbiology, of course we have the urine culture that was positive. We have Gram stain at anaerobic ( ) on blood cultures yesterday. I's &O's, he has an indwelling [place] catheter. He had a total intake of about 790 yesterday, output was about 450 over 20 hours. Lab today, he has a white count of 8.2. His hemoglobin is steady at 10.1. His creatinine is 3.2 with 120 BUN. A130 sodium and a 5 potassium. PHYSICAL EXAMINATION: VITAL SIGNS: Blood pressure is 105/66, heart rates in the 90s, and appears to be quite regular, a 20 respiratory rate, with 100% of BiPAP, his O2 sat was last p.m. he seems to a lot better, his flow was at 35. EYES: Pupils are equal, round, react to light and accommodation. Eyes still appear to be somewhat glassy. ENT: His nose and pharynx are normal. There is no facial abnormalities. INTEGUMENTARY: Skin is warm throughout. He does have the discoloration of his skin, especially in the lower extremities. He has got large lesions. Dressings on the buttocks. NECK: Supple, midline trachea. No bruits. CARDIAC: Irregular, irregular atrial fibrillation well-controlled. ABDOMEN: Obese, but soft, nontender. No gross organomegaly. MUSCULOSKELETAL: Stasis dermatitis on his legs with some swelling but no open wounds on his legs and good warm skin on his feet and we keep them in pressure dressings. NEUROLOGIC: He has very decreased leg strength bilaterally. His arm strength is beginning to return. DIET: He is on a low sodium, low phosphorus, which is being held, moderate carbohydrates. Physical therapy is present. Also ( ) code status. His rehab is fair. He is on BiPAP and he has negative cultures. ASSESSMENT: 1. Severe wound to the buttocks, major concern, primary concern at this time. 2. He had previous sepsis with left lower lobe pneumonia. 3. Bilateral sacral abrasions, decubiti. 4. Renal insufficiency with acute ATN. He has a renal classification of 4. 5. Systolic heart failure, ejection fraction of 30%, which has been stable. 6. Chronic anemia felt to be a combination hemolytic and chronic renal failure. 7. Resolving hypotension. 8. Yi glabrata urinary tract infection. 9. Chronic atrial fibrillation. 10. Type 2 diabetes. 11. Long-standing chronic obstructive pulmonary disease. 12. Moderate ( ) hypertension, RVSP of 46. 13. Chronic hypoxia. PLAN: We will continue the support. I talked with his family and daughter for a long period of time and he is stable but this has been a long road and is very, very hard. He has a moderate amount of adrenal insufficiency, the steroids 50 mg of Cortef now back to q.8, stabilized temperatures back up. Will go day by day. Total information spent with this patient was a good 70 minutes. There is multiple up to 5 phone calls on a daily basis.
[2016-05-20] MEDS: COLLAGENASE 250 UNIT/GM OINTMENT 30 GM TUBE TOPICAL SCH (12:40)
--- NOTE | 2016-05-20 12:45 | P.PN ---
Subjective this is a 56-year-old obese male who is seen in consultation because of recurrence of acute kidney injury while hospitalized after initial improvement. he does have chronic kidney disease with a baseline creatinine of 2.5-3, solitary right kidney, cardiorenal syndrome. His creatinine initially improved and then is back up again in the 3 range. Additionally his pressure is somewhat low, he is on Coreg 6.25 twice a day. Because of worsening creatinine and his IV fluid was started yesterday 05/19/2016 onnormal saline. He has a fair amount of urine output He has mild cough no shortness of breath. Is somewhat weak after debridement there was an yesterday in the OR. He does have C. diff but has no known loose stools for the last approximately 48 hours. Objective - Vital Signs Vital signs: Vital Signs Temp 96.7 F L 05/20/16 07:00 Pulse 91 05/20/16 07:00 Resp 20 05/20/16 08:00 BP 105/66 05/20/16 07:00 Pulse Ox 100 05/20/16 07:00 Intake & Output 05/19/16 05/20/16 05/20/16 18:59 06:59 18:59 Intake Total 600 1040 650 Output Total 352 751 1 Balance 248 289 649 Weight 174 kg Intake: IV 600 Intake, IV Titration 800 Amount Dextrose 5%-0.9% NaCl 1, 800 000 ml @ 100 mls/hr IV . Q10H [facility] Rx#:[id number] Oral 0 240 650 Output: Urine 340 750 Uretheral ([place]) 400 Stool 2 1 1 Estimated Blood Loss 10 Other: Voiding Method Indwelling Catheter Indwelling Catheter Indwelling Catheter ABP, PAP, CO, CI - Last Documented Arterial Blood Pressure 128/58 on examination is awake alert but profoundly weak. He is obese. Is on O2. HEENT exam is somewhat difficult but no JVP is noted neck is supple no facial asymmetry lung exam is(Difficult exam because his inspiratory effort is rather poor. Heart sounds are unremarkable for any murmur rub gallop Abdomen is obese protuberant and difficult to examine but nontender Extremity exam was mild edema Neurologically awake alert oriented but profoundly weak. He moves all his extremities. No asterixis - Labs CBC & Chem 7: 05/20/16 07:12 05/20/16 07:12 Labs: Abnormal Lab Results - Last 24 Hours (Table) 05/19/16 05/19/16 05/19/16 Range/Units 17:36 18:33 22:00 RBC (4.30-5.90) m/uL Hgb (13.0-17.5) gm/dL Hct (39.0-53.0) % MCHC (31.0-37.0) g/dL RDW (11.5-15.5) % Plt Count (150-450) k/uL Lymphocytes # (Manual) (1.0-4.8) k/uL Sodium (137-145) mmol/L BUN (9-20) mg/dL Creatinine (0.66-1.25) mg/dL Glucose (74-99) mg/dL POC Glucose (mg/dL) 70 L 63 L 70 L (75-99) mg/dL Calcium (8.4-10.2) mg/dL 05/20/16 05/20/16 Range/Units 07:12 07:12 RBC 3.55 L (4.30-5.90) m/uL Hgb 10.1 L (13.0-17.5) gm/dL Hct 34.2 L (39.0-53.0) % MCHC 29.6 L (31.0-37.0) g/dL RDW 24.5 H (11.5-15.5) % Plt Count 80 L (150-450) k/uL Lymphocytes # (Manual) 0.5 L (1.0-4.8) k/uL Sodium 130 L (137-145) mmol/L BUN 120 H* (9-20) mg/dL Creatinine 3.22 H (0.66-1.25) mg/dL Glucose 104 H (74-99) mg/dL POC Glucose (mg/dL) (75-99) mg/dL Calcium 8.0 L (8.4-10.2) mg/dL Microbiology - Last 24 Hours (Table) 05/19/16 22:48 Urine Culture - Preliminary Urine,Catheterized 05/19/16 16:45 Gram Stain - Preliminary Back Wound Culture - Preliminary 05/19/16 16:45 Anaerobic Culture - Preliminary Back Assessment and Plan Plan: impression. 1.acute kidney injury secondary to cardiorenal syndrome, low blood pressure, creatinine initially improved but now he is going up again because of the low blood pressure. 2. Chronic kidney disease with baseline creatinine of 2.5-3. 3. Hypotension secondary to cardiac myopathy. 4. Chronic atrial fibrillation on Coreg 6.25 twice a day. 5. Hyponatremia secondary to prerenal, sodium is 1:30 going down. Recommendation. 1.Maintain IV hydration with normal saline 2. Watch hyponatremia secondary to improve with normal saline 3. Reduce Coreg if cardiology is agreeable. Currently on 6.25 twice a day suggestdose reduction to 3.125 twice a day
[2016-05-20 12:55] LABS: Glucose,Whole Blood 160 mg/dL (75-99)
[2016-05-20] MEDS: SODIUM CHLORIDE 0.9% 1,000 ML IV SCH (17:05)
[2016-05-20 17:16] LABS: Glucose,Whole Blood 130 mg/dL (75-99)
[2016-05-20] MEDS ORDERED: WARFARIN 5 MG TAB PO SCH (18:00)
--- NOTE | 2016-05-20 18:49 | PN ---
DATE OF SERVICE: 05/20/2016 The patient has been hemodynamically stable. He is sleepy, but arousable. He has been using BiPAP. On physical examination, blood pressure 94/53, respiratory rate 22, pulse 100, temperature 97.3, O2 sat on 35% FiO2 is 85%. HEENT reveals no new changes. Chest reveals decreased breath sounds. Cardiovascular system reveals an S1 and S2. ABDOMEN: Soft. There is 1 + 2+ pedal edema. Sodium is 130, potassium 5, chloride 98, bicarb 24, BUN 120, creatinine of 3.22. White count 8.2, hemoglobin 10.1. IMPRESSION: 1. Acute on chronic hypoxic respiratory failure. 2. Chronic kidney disease. 3. Pulmonary hypertension. 4. Recent Clostridium difficile colitis. 5. Morbid obesity. 6. Decubitus ulcer status post debridement. Continue supportive care and BiPAP, bronchodilators, pain control, His prognosis at this time is fair.
[2016-05-20 20:01] LABS: INR 1.2 (<1.1); Prothrombin Time 12.1 sec (9.0-12.0)
[2016-05-20] MEDS: WARFARIN 5 MG TAB PO SCH (20:29)
[2016-05-20] MEDS: HEPARIN SODIUM,PORCINE 5,000 UNIT/ML 1 ML VIAL SQ SCH (20:30)
[2016-05-20 20:46] LABS: Glucose,Whole Blood 155 mg/dL (75-99)
[2016-05-21] MEDS ORDERED: FUROSEMIDE 10 MG/ML 4 ML VIAL IV STA (00:34)
[2016-05-21 02:03] LABS: Glucose,Whole Blood 138 mg/dL (75-99)
[2016-05-21] MEDS: INSULIN LISPRO (humaLOG) 300 UNIT/3 ML VIAL SQ SCH ×5 (03:15→22:25)
[2016-05-21 07:26] LABS: INR 1.2 (<1.1); Prothrombin Time 12.2 sec (9.0-12.0)
[2016-05-21 07:38] LABS: Glucose,Whole Blood 141 mg/dL (75-99)
[2016-05-21] MEDS: SODIUM CHLORIDE 0.9% 1,000 ML IV SCH (07:48)
[2016-05-21] MEDS: HYDROCORTISONE SUCCINATE 100 MG/2 ML VIAL IV SCH ×3 (08:43→23:04)
[2016-05-21] MEDS: HEPARIN SODIUM,PORCINE 5,000 UNIT/ML 1 ML VIAL SQ SCH ×2 (08:43→20:48)
[2016-05-21] MEDS: GABAPENTIN 100 MG CAP PO SCH ×3 (08:44→22:28)
[2016-05-21] MEDS: COLLAGENASE 250 UNIT/GM OINTMENT 30 GM TUBE TOPICAL SCH (08:44)
[2016-05-21] MEDS: CARVEDILOL 6.25 MG TAB PO SCH ×2 (08:46→16:48)
[2016-05-21] MEDS: PANTOPRAZOLE 40 MG TABLET PO SCH (08:47)
[2016-05-21] MEDS: ALLOPURINOL 300 MG TAB PO SCH (08:47)
[2016-05-21] MEDS: BUDESONIDE 0.5 MG/2 ML NEBU INHALATION SCH ×2 (09:12→20:16)
[2016-05-21] MEDS: IPRATROPIUM-ALBUTEROL 3 ML NEB INHALATION SCH ×4 (09:12→20:16)
[2016-05-21 11:50] LABS: Glucose,Whole Blood 134 mg/dL (75-99)
--- NOTE | 2016-05-21 12:07 | CT ---
EXAMINATION TYPE: CT brain wo con DATE OF EXAM: 05/21/2016 11:00 AM COMPARISON: NONE HISTORY: 56 year-old male altered mental status TECHNIQUE: Examination was done in axial plane without intravenous contrast. Coronal and sagittal r econstructions performed. CT DLP: 1047.10 mGycm Automated exposure control for dose reduction was used. FINDINGS: There is no evidence of acute intracranial hemorrhage, acute ischemic changes, mass, mass-effect, or extra-axial fluid collection. There is no effacement of cerebral sulci or basal subarachnoid cister ns. There is no hydrocephalus. There is no midline shift. Zuniga-white matter distinction is preserv ed. Mild periventricular white matter hypodensity suggesting mild changes of chronic small vessel ischemi c disease. Some beam hardening artifacts are present such as along the left occipital lobe, axial image 25. Partial opacification left mastoid air cells. Mild mucosal thickening right greater than left maxilla ry sinuses. Correlate for possible right greater than left proptosis. No retrobulbar mass seen. IMPRESSION: 1. No acute intracranial abnormality seen. 2. Correlate for right greater than left proptosis. No retrobulbar/intraorbital mass.
--- NOTE | 2016-05-21 12:51 | P.PN ---
Subjective this is a 56-year-old morbidly obese male who is seen in consultation because of recurrence of acute kidney injury while hospitalized after initial improvement. he does have chronic kidney disease with a baseline creatinine of 2.5-3, solitary right kidney, cardiorenal syndrome. His creatinine initially improved and then is back up again in the 3 range. Additionally his pressure is somewhat low, he is on Coreg 6.25 twice a day. Because of worsening creatinine and his IV fluid was started day before yesterday 05/19/2016 on normal saline. He has a fair amount of urine output, 24-hour urine output has gone up marginally from a 804 mL to 1103 mL. In spite of this he is becoming weak and tired drowsy and confused. A computed tomography scan was done this morning and it is not showing any significant new finding. Left proptosis is seen more than the right He had sacral debridement on 05/19/2016 in the OR. He does have C. diff but has no known loose stools for the last approximately 48 hours. Objective - Vital Signs Vital signs: Vital Signs Temp 98.5 F 05/21/16 07:00 Pulse 96 05/21/16 09:27 Resp 20 05/21/16 07:00 BP 119/57 05/21/16 07:00 Pulse Ox 91 L 05/21/16 07:00 Intake & Output 05/20/16 05/21/16 05/21/16 18:59 06:59 18:59 Intake Total 650 1040 Output Total 217 75 Balance 433 965 Weight 127.5 kg Intake: Intake, IV Titration 800 Amount Dextrose 5%-0.9% NaCl 1, 800 000 ml @ 100 mls/hr IV . Q10H [facility] Rx#:[id number] Oral 650 240 Output: Urine 215 75 Stool 2 Other: Voiding Method Indwelling Catheter Indwelling Catheter # Voids 3 # Bowel Movements 0 ABP, PAP, CO, CI - Last Documented Arterial Blood Pressure 128/58 On examination is drowsy arousable response but goes up to sleep right away. A chin exam is difficult because of morbid obesity neck is supple no facial asymmetry Lungs are significantly difficult to examine because of poor inspiratory effort but no crackles were heard. No dullness is elicited. Heart sounds are unremarkable but distant Abdomen is obese nontender no masses felt. Extremity exam was 2+ edema. Neurologically as mentioned above. Sleepy arousable but hardly answers. - Labs CBC & Chem 7: 05/20/16 07:12 05/20/16 07:12 Labs: Abnormal Lab Results - Last 24 Hours (Table) 05/20/16 05/20/16 05/20/16 Range/Units 12:36 17:15 19:33 PT 12.1 H (9.0-12.0) sec POC Glucose (mg/dL) 160 H 130 H (75-99) mg/dL 05/20/16 05/21/16 05/21/16 Range/Units 20:45 02:01 06:49 PT 12.2 H (9.0-12.0) sec POC Glucose (mg/dL) 155 H 138 H (75-99) mg/dL 05/21/16 05/21/16 Range/Units 07:32 11:49 PT (9.0-12.0) sec POC Glucose (mg/dL) 141 H 134 H (75-99) mg/dL Microbiology - Last 24 Hours (Table) 05/19/16 23:16 Blood Culture - Preliminary Blood No Growth after 24 hours 05/19/16 23:40 Blood Culture - Preliminary Blood No Growth after 24 hours 05/19/16 16:45 Gram Stain - Preliminary Back Wound Culture - Preliminary Group D Enterococcus 05/19/16 22:48 Urine Culture - Preliminary Urine,Catheterized Assessment and Plan Plan: impression. 1.acute kidney injury secondary to cardiorenal syndrome, low blood pressure, creatinine initially improved but now he is going up again because of the low blood pressure. He was started on IV fluids on 05/19/2016. Urine output is marginal between 800 1100 mL. Last today are pending 2. Chronic kidney disease with baseline creatinine of 2.5-3. 3. Hypotension secondary to cardiac myopathy. 4. Chronic atrial fibrillation on Coreg 6.25 twice a day. Low blood pressure. 5. Hyponatremia secondary to prerenal, sodium is 130 going down, labs today are pending. 6. Morbid obesity Recommendation. 1. Maintain IV hydration with normal saline 2. Watch hyponatremia expected to improve with normal saline 3. Reduce Coreg if cardiology is agreeable. Currently on 6.25 twice a day suggestdose reduction to 3.125 twice a day 4. Consider restarting dobutamine if creatinine is worsening 5. Patient's family is considering hospice care
[2016-05-21] MEDS: DEXTROSE 5%-0.9% NACL 1,000 ML IV SCH ×2 (12:53→23:04)
[2016-05-21 13:03] LABS: Potassium 5.3 mmol/L (3.5-5.1)
--- NOTE | 2016-05-21 14:43 | PN ---
Patient is much more lethargic today, even though I am able to arouse him with yelling and so was his . He has a fair amount of dilation of the brain. His ability to eat has pretty much ceased. He is irritable at times with pain. So at this period of time my review of systems was really unable to be performed except through his . She said he: CARDIOPULMONARY: He does not appear to have any shortness of breath and was not complaining about chest pain. GI: No complaining about his stomach. : Basically secondary from ( ). From a microbiology 24 hours of repeat, blood cultures are negative. We are still treating the Yi glabrata. Wound shows group D enterococcus that was grown from the wound from surgery. Today labs; sugars are pretty much in the 150 to 160 area. His Coumadin has been basically, still has an INR of 1.2. He did have hematology today and his hemoglobin still staying at 10. White count is at 8.2. His chemistries; we did no more chemistry today PHYSICAL EXAMINATION: VITAL SIGNS: Blood pressure is 119/56, heart rates in the 90s, respiratory rate is 20 and temperature is 98.5. EYES: Pupils are dilated and glassy. Mouth is dry. NECK: Supple with midline trachea. CHEST: Essentially clear but decreased in breath sounds. Heart is regular, irregular rhythm. ABDOMEN: Soft, nontender. He is obese. LOWER EXTREMITIES: Warm. No change in coloration. ASSESSMENT: 1. Acute delirium, rule out cerebrovascular accident. 2. End-stage renal disease. 3. End-stage pulmonary disease. 4. Chronic atrial fibrillation that is stable. 5. Large sacral decubiti. 6. Acute tubular necrosis on chronic acute tubular necrosis. 7. Anemia, both hemolytic and secondary from chronic renal failure. 8. Original sepsis. 9. Left lower lobe pneumonia, which is resolved systolic heart failure. 10. Type 2 diabetes with insulin support. 11. Long-standing history of chronic obstructive pulmonary disease. 12. Moderate pulmonary hypertension. 13. Severe hypoxia. I feel that he has had end-stage disease. I had a long talk with his and nursing. They agree. Will complete a CAT scan of the brain just because the changes have been so acute and she will talk with the family and we will strongly consider comfort care.
[2016-05-21] MEDS: WARFARIN 5 MG TAB PO SCH (16:48)
[2016-05-21 17:06] LABS: Glucose,Whole Blood 140 mg/dL (75-99)
[2016-05-21 21:06] LABS: Glucose,Whole Blood 168 mg/dL (75-99)
[2016-05-22 01:53] LABS: Glucose,Whole Blood 160 mg/dL (75-99)
[2016-05-22] MEDS: INSULIN LISPRO (humaLOG) 300 UNIT/3 ML VIAL SQ SCH ×3 (02:48→12:52)
[2016-05-22 07:09] LABS: Glucose,Whole Blood 127 mg/dL (75-99)
[2016-05-22 07:24] VITALS: BP 99/54; PULSE 92; RESP 18; TEMP 98
[2016-05-22] MEDS: BUDESONIDE 0.5 MG/2 ML NEBU INHALATION SCH (08:01)
[2016-05-22] MEDS: IPRATROPIUM-ALBUTEROL 3 ML NEB INHALATION SCH ×2 (08:01→10:50)
[2016-05-22] MEDS: CARVEDILOL 6.25 MG TAB PO SCH (09:25)
[2016-05-22] MEDS: COLLAGENASE 250 UNIT/GM OINTMENT 30 GM TUBE TOPICAL SCH (09:25)
[2016-05-22] MEDS: ALLOPURINOL 300 MG TAB PO SCH (09:25)
[2016-05-22] MEDS: DEXTROSE 5%-0.9% NACL 1,000 ML IV SCH (09:26)
[2016-05-22] MEDS: PANTOPRAZOLE 40 MG TABLET PO SCH (09:26)
[2016-05-22] MEDS: GABAPENTIN 100 MG CAP PO SCH (09:26)
[2016-05-22] MEDS: HEPARIN SODIUM,PORCINE 5,000 UNIT/ML 1 ML VIAL SQ SCH (09:27)
[2016-05-22] MEDS: HYDROCORTISONE SUCCINATE 100 MG/2 ML VIAL IV SCH (09:27)
--- NOTE | 2016-05-22 11:18 | P.PN ---
Subjective Principal diagnosis: Septic shock Patient seen and examined with his and daughter at bedside. The family is extremely lethargic and is on BiPAP. The family is agreeable to hospice. They' re very tearful. Objective - Vital Signs Vital signs: Vital Signs Temp 98.0 F 05/22/16 07:00 Pulse 92 05/22/16 07:00 Resp 18 05/22/16 07:00 BP 99/54 05/22/16 07:00 Pulse Ox 97 05/21/16 22:53 Intake & Output 05/21/16 05/22/16 05/22/16 18:59 06:59 18:59 Intake Total 700 600 Output Total 2 200 Balance 698 400 Weight 164 kg Intake: Intake, IV Titration 700 600 Amount Dextrose 5%-0.9% NaCl 1, 700 600 000 ml @ 100 mls/hr IV . Q10H [facility] Rx#:[id number] Output: Urine 200 Stool 2 Other: Voiding Method Indwelling Catheter Indwelling Catheter ABP, PAP, CO, CI - Last Documented Arterial Blood Pressure 128/58 - Exam Gen: Patient is lethargic, on BiPAP CV: RRR, s1/s2 Lungs: Diminished breath sounds bilaterally Abd: soft, NT/ND, +BS Ext: +2-3 pitting edema, chronic venous stasis - Labs CBC & Chem 7: 05/20/16 07:12 05/21/16 06:49 Labs: Abnormal Lab Results - Last 24 Hours (Table) 05/21/16 05/21/16 05/21/16 Range/Units 06:49 11:49 17:04 Sodium 130 L (137-145) mmol/L Potassium 5.3 H (3.5-5.1) mmol/L Carbon Dioxide 18 L (22-30) mmol/L BUN 128 H* (9-20) mg/dL Creatinine 3.58 H (0.66-1.25) mg/dL Glucose 129 H (74-99) mg/dL POC Glucose (mg/dL) 134 H 140 H (75-99) mg/dL Calcium 8.0 L (8.4-10.2) mg/dL 05/21/16 05/22/16 05/22/16 Range/Units 21:04 01:51 07:07 Sodium (137-145) mmol/L Potassium (3.5-5.1) mmol/L Carbon Dioxide (22-30) mmol/L BUN (9-20) mg/dL Creatinine (0.66-1.25) mg/dL Glucose (74-99) mg/dL POC Glucose (mg/dL) 168 H 160 H 127 H (75-99) mg/dL Calcium (8.4-10.2) mg/dL Microbiology - Last 24 Hours (Table) 05/19/16 23:16 Blood Culture - Preliminary Blood No Growth after 48 hours 05/19/16 23:40 Blood Culture - Preliminary Blood No Growth after 48 hours 05/19/16 16:45 Anaerobic Culture - Preliminary Back 05/19/16 22:48 Urine Culture - Preliminary Urine,Catheterized Yeast species Assessment and Plan Plan: Acute on chronic hypoxic respiratory failure HCAP Acute on chronic renal failure, CKD 4 Toxic metabolic encephalopathy Septic shock, resolved Afib with CVR UTI POA, Yi glabrata Systolic CHF, EF 35-40% Mild to moderate pulmonary hypertension, RVSP 46 mmHg Recent C diff colitis Bicytopenia NSTEMI Coumadin coagulopathy Hyponatremia Hx strep pyogenes bacteremia AECOPD GUICHO/OHS, on bipap Hx tobacco abuse DM2 PCM Morbid obesity Sacral decubitus ulcer, s/p debridement Continue Bipap support, wean FiO2 for sat > or = 88% ABX per ID Continue subcu heparin, monitor INR, Coumadin dosing Nephro and cardio recommendations Protonix for GI prophylaxis Continue Duonebs and Pulmicort Continue SoluCortef - taper Lasix per nephrology Ultrasound of the chest reveals no evidence of pleural effusion. Monitor renal function PT and OT patient is appropriate for hospice. This is discussed with the family at length. They are agreeable to hospice.
--- NOTE | 2016-05-22 11:32 | PN ---
DATE OF SERVICE: 05/21/2016 He is sleepy but arousable. He had been complaining of pain in his lower extremities. On physical examination, his blood pressure is 114/40, respiratory rate 18, pulse of 107, temperature 98 degrees Fahrenheit, O2 sat on 4 L by nasal cannula is 97%. HEENT reveals no new changes. Chest reveals decreased breath sounds. Cardiovascular system reveals an S1 and S2. Abdomen is soft. There is 2+ pedal edema. BUN is 128, creatinine of 3.58. Sodium 130, potassium 5.3, chloride 99, bicarb 19. IMPRESSION: 1. Obesity with obesity hypoventilation and obstructive sleep apnea for which we will continue him on BiPAP at this time. 2. Large sacral decubitus ulcer, status post debridement. 3. Acute on chronic renal failure. 4. Pneumonia. 5. Congestive heart failure. At this point in time, patient's prognosis is guarded. We will continue BiPAP for supportive care. Depending on how he does, we shall make further changes to his care. Agree with comfort oriented care if that ultimately is what the family would like.
[2016-05-22] MEDS: MORPHINE SULFATE 2 MG/ML SYRINGE IVP PRN ×2 (12:53→15:20)
[2016-05-22 14:21] VITALS: BMI 46.4
--- NOTE | 2016-05-22 14:28 | PN ---
The patient is seen for follow-up for acute kidney injury. His renal function has deteriorated. The patient's family is present at bedside and they have decided to proceed with hospice care. Currently, patient is barely responsive. He is maintained on BiPAP. Examination shows patient is barely arousable. Abdomen is morbidly obese. Examination of lower extremities shows chronic skin changes. Extremities are wrapped. Labs from yesterday shows a BUN of 128, serum creatinine 3.58, sodium 130, potassium 5.3. ASSESSMENT: 1. Acute kidney injury with worsening renal failure. Urine output only about 200 mL for the last 24 hours. Given the patient's underlying comorbidities and overall clinical condition, he is not an ideal candidate for renal replacement therapy. This is discussed with the patient's and hospice care and comfort measures is appropriate at this time. 2. Severe sacral decubs status post incision and drainage. 3. Obstructive sleep apnea, chronic obstructive pulmonary disease. 4. Acute on chronic hypoxic respiratory failure. 5. Chronic kidney disease stage IV. 6. Recent Clostridium difficile colitis. PLAN: Appropriate to proceed with comfort care measures. Discussed with the patient's family he is not an ideal candidate for renal replacement therapy.
--- NOTE | 2016-05-22 21:33 | PN ---
DATE OF SERVICE: 05/22/2016 REASON FOR FOLLOWUP: Sacral wound. INTERVAL HISTORY: The patient was seen on rounds this morning. The patient has been sleepy and lethargic but in no respiratory distress. No nausea or vomiting has been noticed. Unable to provide any history. On examination, blood pressure 99/54 with a pulse of 92. Temperature is 98. He is 95% on BiPAP. General description is a middle-aged male lying in bed in no distress. RESPIRATORY SYSTEM: Unlabored breathing. Clear to auscultation anteriorly. HEART: S1, S2. Regular rate and rhythm. ABDOMEN: Soft. No tenderness. EXTREMITIES: Swelling. RN who changed the wound V.A.C. did mention significant deep wound but no significant redness. LABS: Hemoglobin is 10.1, white count of 8.2. BUN of 128, creatinine 3.5. DIAGNOSTIC IMPRESSION AND PLAN: 1. Patient with admission to hospital with sepsis, concern for an underlying pneumonia that has been adequately treated. 2. Patient with a stage III sacral pressure ulcer, status post debridement. Recommend local wound care with wound V.A.C.; however, the family is leaning more towards hospice. They were consoled. Their questions were answered. If hospice or comfort is called, no need for any further therapy at this point, and we would sign off. MTDD
--- NOTE | 2016-05-23 11:01 | DS ---
DATE OF ADMISSION: 05/07/2016 DATE OF DISCHARGE: 05/22/2016 The patient is a 56-year-old white male that came in with multifactorial problems and failure including renal failure, pneumonia , from his severe COPD, atrial fib initially with rapid rate that became normal, large bedsores on the bottom of his buttocks and was treated over a period of time since his date of admission 05/07/16. Over the last 36 hours, the patient has become minimally responsive, not reacting to any yellowing except for severe yelling and even today for me he did not respond to yelling, rubbing on the sternum with my knuckle created minimal amount of response . Today a CAT scan was done of the brain, which showed no acute changes At this time, I talked with his and she wants comfort care with hospice. His vital signs are ( ) at 100/56. His heart rates in 100, respiratory rate is 20, temperature is 98. His pupils at this time were dilated most of the night, now they are more pinpoint, glassy appearing eyes. Patient is on BiPAP. His lungs have decreased breath sounds throughout. His heart is irregular rhythm in the 90s to 100. Abdomen is soft. Lower extremities are unchanged. His lab work unfortunately, his blood has now changes. His creatinine is at 3.58 and a BUN of 128,. Potassium is at 5.3. His vital signs show a blood pressure of 90/50, again heart rates in the 90s. Respiratory rate is some labored and 18 and his temperature is 98. ASSESSMENT: 1. Multisystem failure. 2. Severe acute on chronic renal failure. 3. End-stage pulmonary disease. 4. Chronic atrial failure, with now a rapid rate. 5. Acute tubular necrosis. 6. Two large sacral decubiti. 7. Anemia, both hemolytic and chronic in nature. 8. Sepsis, probably secondary from fungi which has been treated IV. 9. Left lower lobe pneumonia. 10. Type 2 diabetes, insulin support. 11. Moderate pulmonary hypertension and severe hypoxia to do also morbid obesity. I had a long talk with the yesterday and today along with nursing and she agrees with the family to put him on comfort care and was completed [facility]. Please refer to my orders.
== END 2016-05-22 15:35 | disposition hospice, inpatient (51) | DRG 853 ==
LOC: EC 17:30 → 6SEL 19:20 → 6ICU 05-08 01:29 → 6SEL 05-14 15:58 → 5MS5E 05-17 16:32
PROVIDERS: ADMIT Family Medicine; ATTEND Family Medicine
PROC: 03HY32Z Insertion of Monitoring Device into Upper Artery, Percutaneous Approach (ICD-10-PCS; 2016-05-08)
PROC: B543ZZA Ultrasonography of Right Jugular Veins, Guidance (ICD-10-PCS; 2016-05-08)
PROC: 4A133B1 Monitoring of Arterial Pressure, Peripheral, Percutaneous Approach (ICD-10-PCS; 2016-05-08)
PROC: 4A133J1 Monitoring of Arterial Pulse, Peripheral, Percutaneous Approach (ICD-10-PCS; 2016-05-08)
PROC: 02HV33Z Insertion of Infusion Device into Superior Vena Cava, Percutaneous Approach (ICD-10-PCS; 2016-05-08)
PROC: 30243N1 Transfusion of Nonautologous Red Blood Cells into Central Vein, Percutaneous Approach (ICD-10-PCS; 2016-05-09)
PROC: 0JB70ZZ Excision of Back Subcutaneous Tissue and Fascia, Open Approach (ICD-10-PCS; principal; 2016-05-19 14:10)
DX: A41.9 Sepsis, unspecified organism (principal); J96.21 Acute and chronic respiratory failure with hypoxia; I21.4 Non-ST elevation (NSTEMI) myocardial infarction; N17.0 Acute kidney failure with tubular necrosis; R65.21 Severe sepsis with septic shock; D61.818 Other pancytopenia; J18.9 Pneumonia, unspecified organism; I50.23 Acute on chronic systolic (congestive) heart failure; N18.6 End stage renal disease; L89.153 Pressure ulcer of sacral region, stage 3; J96.22 Acute and chronic respiratory failure with hypercapnia; G92 Toxic encephalopathy; I42.9 Cardiomyopathy, unspecified; E66.2 Morbid (severe) obesity with alveolar hypoventilation; E46 Unspecified protein-calorie malnutrition; Z68.43 Body mass index [BMI] 50.0-59.9, adult; T83.518A Infection and inflammatory reaction due to other urinary catheter, initial encounter; I48.1 Persistent atrial fibrillation; E87.1 Hypo-osmolality and hyponatremia; J44.1 Chronic obstructive pulmonary disease with (acute) exacerbation; B37.49 Other urogenital candidiasis; A04.7 Enterocolitis due to Clostridium difficile; E27.40 Unspecified adrenocortical insufficiency; E87.2 Acidosis; L03.116 Cellulitis of left lower limb; I13.0 Hypertensive heart and chronic kidney disease with heart failure and stage 1 through stage 4 chronic kidney disease, or unspecified chronic kidney disease; N18.4 Chronic kidney disease, stage 4 (severe); I27.2 Other secondary pulmonary hypertension; E11.22 Type 2 diabetes mellitus with diabetic chronic kidney disease; E11.42 Type 2 diabetes mellitus with diabetic polyneuropathy; H05.20 Unspecified exophthalmos; Z66 Do not resuscitate; Z51.5 Encounter for palliative care; E11.65 Type 2 diabetes mellitus with hyperglycemia; M19.91 Primary osteoarthritis, unspecified site; K21.9 Gastro-esophageal reflux disease without esophagitis; M06.9 Rheumatoid arthritis, unspecified; M10.9 Gout, unspecified; I87.8 Other specified disorders of veins; R79.1 Abnormal coagulation profile; T45.515A Adverse effect of anticoagulants, initial encounter; D63.1 Anemia in chronic kidney disease; I25.10 Atherosclerotic heart disease of native coronary artery without angina pectoris; D50.9 Iron deficiency anemia, unspecified; F32.9 Major depressive disorder, single episode, unspecified; I87.2 Venous insufficiency (chronic) (peripheral); T38.0X5A Adverse effect of glucocorticoids and synthetic analogues, initial encounter; G47.33 Obstructive sleep apnea (adult) (pediatric); Z99.3 Dependence on wheelchair; Z74.01 Bed confinement status; Z99.81 Dependence on supplemental oxygen; Z87.891 Personal history of nicotine dependence; Z79.51 Long term (current) use of inhaled steroids; Z79.4 Long term (current) use of insulin; Z79.01 Long term (current) use of anticoagulants; Z79.899 Other long term (current) drug therapy; Y95 Nosocomial condition; Y84.6 Urinary catheterization as the cause of abnormal reaction of the patient, or of later complication, without mention of misadventure at the time of the procedure
CPT/HCPCS: 36415; 36600; 70450; 71010; 71020; 76604; 80048; 80053; 80202; 81001; 82272; 82550; 82553; 82728; 82805; 83036; 83540; 83550; 83605; 83735; 83880; 84100; 84134; 84484; 85025; 85027; 85610; 85730; 86850; 86900; 86901; 86920; 87040; 87070; 87075; 87077; 87086; 87186; 87205; 87502; 93005; 94640; 94660; 94760; 94762; 96361; 96365; 96367; 99291

== ENCOUNTER 2016-05-22 15:38 | Inpatient (IN) | payer OTHER ==
[2016-05-22] MEDS: LORazepam 2 MG/ML SYRINGE IV PRN (16:08)
[2016-05-22] MEDS ORDERED: MORPHINE SULFATE 100 MG in SODIUM CHLORIDE 0.9% 100 ML IV SCH (16:30)
[2016-05-22 18:34] VITALS: BMI 46.4
[2016-05-22] MEDS ORDERED: ACETAMINOPHEN SUPPOSITORY 650 MG SUPP RECTAL PRN (19:38)
[2016-05-22] MEDS ORDERED: ATROPINE OPHTH SOLN 1% 5ML BTL SUBLINGUAL PRN (19:38)
[2016-05-22] MEDS ORDERED: SCOPOLAMINE 1.5MG/72HR PATCH TRANSDERM PRN (19:38)
[2016-05-22] MEDS ORDERED: ONDANSETRON 4 MG/2 ML VIAL IVP PRN (19:38)
[2016-05-22] MEDS ORDERED: MORPHINE SULFATE 2 MG/ML SYRINGE IV PRN (19:38)
[2016-05-22] MEDS ORDERED: ARTIFICIAL TEARS-HYPROMELLOSE DROPS 15 ML BTL BOTH EYES PRN (19:38)
[2016-05-22] MEDS ORDERED: SODIUM CHLORIDE 0.9% 1,000 ML IV SCH (19:45)
[2016-05-23] MEDS: LORazepam 2 MG/ML SYRINGE IV PRN (01:48)
--- NOTE | 2016-05-23 11:27 | PN ---
This is a 56-year-old white male in comfort care that was admitted with multisystem failure. He came here with acute renal failure. He came here with pneumonia, came here with severe COPD with severe ulcers of the buttocks that were operated on. He had Pulmonology, Nephrology, Surgery and Infectious Disease. He was also found to have severe infection related in his urine with antifungal drug. After going down for surgery and before that, he became more lethargic and much less responsive. CAT scan of the brain was completed to show any acute disease process and it was not there. His progression of his disease has worsened continuously in either ECF, inpatient, long-term care at a pulmonary center in the hospital to the point that he went into a coma and we decided to bring in comfort care. Consultation was completed with [facility] and the patient was put on a morphine drip. At this period of time I saw him, he is comfortable. His heart rate is now down into the 50s. He has minimal laboring breathing. His eyes are fixed and are pinpoint at this point. He has been put on scopolamine patch. He is on a morphine drip. He is on comfort care. He is very comfortable. This is end-stage disease and this gentleman is comfortably ( ).
--- NOTE | 2016-06-14 11:36 | PN ---
ADDENDUM: DATE OF SERVICE: 05/16/2016 and 05/17/2016 Patient was seen 75 minutes both days.
== END 2016-05-23 07:10 | disposition expired | DRG 80 ==
LOC: 5MS5E 15:38
PROVIDERS: ADMIT Family Medicine; ATTEND Family Medicine
DX: R40.20 Unspecified coma (principal); J18.9 Pneumonia, unspecified organism; I13.0 Hypertensive heart and chronic kidney disease with heart failure and stage 1 through stage 4 chronic kidney disease, or unspecified chronic kidney disease; N18.4 Chronic kidney disease, stage 4 (severe); N17.9 Acute kidney failure, unspecified; I50.22 Chronic systolic (congestive) heart failure; J44.0 Chronic obstructive pulmonary disease with (acute) lower respiratory infection; I27.2 Other secondary pulmonary hypertension; E46 Unspecified protein-calorie malnutrition; Z68.42 Body mass index [BMI] 45.0-49.9, adult; E66.01 Morbid (severe) obesity due to excess calories; Z51.5 Encounter for palliative care; Z66 Do not resuscitate; B37.49 Other urogenital candidiasis; E11.22 Type 2 diabetes mellitus with diabetic chronic kidney disease; I48.91 Unspecified atrial fibrillation; K21.9 Gastro-esophageal reflux disease without esophagitis; M19.91 Primary osteoarthritis, unspecified site; M06.9 Rheumatoid arthritis, unspecified; L98.419 Non-pressure chronic ulcer of buttock with unspecified severity; M10.9 Gout, unspecified; G47.33 Obstructive sleep apnea (adult) (pediatric); Z87.891 Personal history of nicotine dependence; Z79.01 Long term (current) use of anticoagulants; Z79.4 Long term (current) use of insulin; Z79.51 Long term (current) use of inhaled steroids; Z79.899 Other long term (current) drug therapy